=== PATIENT | male | born 1985 | race Caucasian/White ===

== ENCOUNTER → 2018-11-13 14:40 | Outpatient (CLI) | payer OTHER, SELFPAY ==
[2018-11-13 15:12] LABS: Add Manual Diff / Slide Review NO; Basophils Absolute Auto 100 /uL (0-100); Basophils Percent Auto 1.1 % (0-2); Eosinophils Absolute Auto 200 /uL (0-450); Eosinophils Percent Auto 1.7 % (2-4); Hematocrit 41.7 % (41-53); Hemoglobin 14.5 g/dL (13.5-17.5); Lymphocytes Absolute Auto 2400 /uL (1100-4500); Lymphocytes Percent Auto 22.5 % (25-40); Mean Corpuscular HGB Conc 34.7 % (30-36); Mean Corpuscular Hemoglobin 31.1 PG (26-34); Mean Corpuscular Volume 89.8 fL (80-100); Monocytes Absolute Auto 1000 /uL (0-900); Monocytes Percent Auto 9.5 % (3-14); Neutrophils Absolute Auto 7000 /uL (1500-7000); Neutrophils Percent Auto 65.2 % (50-75); Platelet Count 324 X10^3/uL (150-400); Red Blood Cell Count 4.65 X10^6/uL (4.5-5.9); Red Cell Distribution Width 14.5 % (11.6-14.8); White Blood Cell Count 10.8 X10^3/uL (4.5-11.0)
[2018-11-13 15:40] LABS: Alanine Aminotransferase 55 IU/L (21-72); Albumin 4.1 g/dL (3.5-5.0); Albumin Globulin Ratio 1.5 (1.0-2.8); Alkaline Phosphatase 82 U/L (38-126); Aspartate Aminotransferase 27 IU/L (17-59); Bilirubin Total 0.4 mg/dL (0.2-1.3); Blood Urea Nitrogen 19 mg/dL (9-20); Calcium 9.6 mg/dL (8.4-10.2); Carbon Dioxide 29 mmol/L (22-32); Chloride 103 mmol/L (98-107); Estimated Glomerular Filt Rate > 60.0 mL/min (>60); Globulin 2.8 g/dL (1.7-4.1); Glucose 80 mg/dL (70-100); HEMOLYSIS < 15 (0-50); Lipase 64 U/L (23-300); Sodium 143 mmol/L (137-145); Total Protein 6.9 g/dL (6.3-8.2)
== END ==
PROVIDERS: Visit Provider Physician Assistant
DX: R10.9 Unspecified abdominal pain (principal)
CPT/HCPCS: 36415; 80053; 83690; 85025

== ENCOUNTER → 2018-11-20 08:36 | Outpatient (CLI) | payer OTHER, SELFPAY ==
--- NOTE | 2018-11-20 08:54 | DI.CT.S_ITS ---
PROCEDURE: CT KIDNEY URETER BLADDER (KUB) INDICATIONS: possible kidney stone TECHNIQUE: Noncontrast 5 mm thick sections acquired from the diaphragms to the symphysis. 5 mm thick coronal and sagittal reformats were then performed. For radiation dose reduction, the following was used: automated exposure control, adjustment of mA and/or kV according to patient size. COMPARISON: None. FINDINGS: Image quality: Excellent. Lung bases: Lung bases are clear. Heart size is normal. Urinary system: Both kidneys are normal in size. No kidney stones. No hydronephrosis or perinephric fat stranding. Both ureters appear non-dilated throughout their expected courses. Bladder wall thickness is normal; no calcified bladder stones. Other solid organs: Liver is normal in size, but demonstrates generalized fatty infiltration.. Gallbladder appears normal. Pancreas is normal in contours. Spleen is normal in size. No adrenal nodules. Peritoneum and bowel: Unenhanced bowel loops demonstrate normal wall thickness and caliber. No free fluid or air. Nodes and vessels: No retroperitoneal or mesenteric adenopathy by size criteria. Aorta and inferior vena cava are normal in caliber. Abdominal wall: No ventral hernias. Pelvis: No free pelvic fluid. No inguinal hernias or adenopathy. Note is made of relative wall thickening of the sigmoid colon in a pattern suspicious for representing colitis or acute diverticulitis and conceivably a manifestation of colon malignancy. This tubular appearance can be seen beginning on series 2 image 85 and extending posteriorly to approximately series 2 image 84 (the posterior two thirds of the sigmoid colon). Sigmoid diverticulosis in this area is present, mild and overall some aerated. Bones: No suspicious bony lesions. No vertebral body compression fractures. IMPRESSION: No urinary tract stone or obstruction is seen. Note is made of abnormal mild mural thickening that is concentric involving the sigmoid colon, somewhat poorly visualized due to absence of both oral and intravenous contrast. The appearance as discussed above may reflect colitis through that area, versus diverticulitis, versus an unusual manifestation of neoplasm. Dictated by: Wes Domínguez M.D. on 11/20/2018 at 9:51 Approved by: Wes Domínguez M.D. on 11/20/2018 at 9:54
== END ==
PROVIDERS: Visit Provider Physician Assistant
DX: R10.9 Unspecified abdominal pain (principal); K57.30 Diverticulosis of large intestine without perforation or abscess without bleeding
CPT/HCPCS: 74176

== ENCOUNTER 2018-12-04 07:20 | Day surgery (SDC) | payer OTHER, MEDICAID, SELFPAY ==
--- NOTE | 2018-12-04 | PATH_ITS ---
[facility] Accession Number: [id number] . 01 Material submitted: . sigmoid colon - RANDOM SIGMOID BIOPSIES . 01 Clinical history: . FLEX SIG; ABNORMAL FINDINGS ON DIAGNOSTIC IMAGING . 02 Diagnosis: Random Sigmoid Colon, Biopsies: Colonic mucosa with no diagnostic abnormality. Negative for active, chronic, and microscopic colitis. Negative for dysplasia and malignancy. [facility] 12/05/2018 1334 Local . 02 Electronically signed: . Yoko Davalos MD, Pathologist NPI- [id number] . 01 Gross description: . RANDOM SIGMOID BIOPSIES: Received in formalin are multiple fragment(s) of deshpande, soft tissue measuring 0.1 x 0.1 x 0.1 cm to 0.3 x 0.2 x 0.2 cm which is entirely submitted and submitted entirely in 1 cassette(s) /[facility] [place]04/20181955 Local . 02 Pathologist provided ICD-10: R93.5 . 02 CPT . 529687 Performed at: 01 [facility] [address] [facility], [place], [place] [id number] MD Rolf York MD Phone: [phone] Performed at: 02 [facility] [address] [place], [place] [id number] MD Yoko Davalos MD Phone: [phone]
[2018-12-04 07:49] VITALS: BP 151/97; PULSE 113; RESP 16; TEMP 36.9; O2SAT 94; BMI 30.9
--- NOTE | 2018-12-04 07:58 | PM.HP.1 ---
History of Present Illness History of Present Illness Date Patient Seen: 12/04/18 Time Patient Seen: 07:58 Chief complaint: [id number] FLEX SIG Narrative: Patient is a gentleman who had a CT scan that showed possible sigmoid thickening and colitis. The patient has no diarrhea or blood. He is brought in for flex sig to evaluate this portion of his colon. Patient History Family History (Updated 12/04/18 @ 07:59 by Cody Lee MD) Mother Cancer Social History household members: significant other Smoking Status: Current every day smoker (1/2 ppd) Family & Social History Family History (Updated 12/04/18 @ 07:59 by Cody Lee MD) Mother Cancer Social History: household members significant other Tobacco & Substance use: Smoking Status Current every day smoker Meds Home Medications and Allergies Home Medications Medication Instructions Recorded Confirmed Type ibuprofen 200 mg tablet 400 mg PO TID PRN tab 11/29/18 12/04/18 History meloxicam 15 mg tablet 15 mg PO DAILY PRN 11/29/18 12/04/18 History Allergies Allergy/AdvReac Type Severity Reaction Status Date / Time acetaminophen [ACETAMINOPHEN] Allergy Unknown NAUSEA Verified 12/04/18 07:49 morphine [MORPHINE] Allergy Unknown Verified 12/04/18 07:49 Review of Systems Review of Systems ROS Unobtainable: All systems reviewed & are unremarkable except as noted in HPI and below Musculoskeletal Comments: Ankle and left hand arthritis Exam Vital Signs (past 8 hours): - 12/04/18 07:49 Temperature 98.4 F Pulse Rate 113 H Respiratory Rate 16 Blood Pressure 151/97 H Pulse Oximetry 94 Oxygen Delivery Method Room Air Narrative Exam Narrative: Pleasant cooperative patient no apparent distress. Lungs are clear to auscultation. No rales or rhonchi. Heart regular rate and rhythm no murmur gallop. Abdomen is soft nontender without mass. No obvious hernias. Patient is alert and oriented x3. Assessment & Plan Assessment and plan (1) Abnormal abdominal CT scan: Problem details: Patient for a flexible sigmoidoscopy. This is to evaluate his distal colon. Patient agreeable to proceed. Current visit: No Status: Acute
[2018-12-04] MEDS: SODIUM CHLORIDE 0.9% 1,000 ML 84 ML IV (08:00)
--- NOTE | 2018-12-04 08:27 | PM.PREOP ---
Pre-operative Note Interval Note History & Physical reviewed/Exam performed by Physician: Yes Changes to H&P: No ASA Class (for procedural sedation): I
--- NOTE | 2018-12-04 08:27 | PM.OP.ENDO ---
Operative Date/Time/Diagnoses Date of procedure: 12/04/18 Time of procedure: 08:28 Pre-op diagnosis: Abnormal CT possible colitis/diverticulitis sigmoid colon Post-op diagnosis: same (Very mild colitis. Could be associated with diverticulitis.) Procedure & Clinicians Study performed: Colonoscopy could be with cold biopsy Same procedure as scheduled: Yes Indications: Abnormal CT scan. Patient does not have symptoms of colitis however. CT was performed because of blood in his urine. Surgeon: Cody Lee Procedure Notes SCOAP/Timeout: Performed Procedure in detail: Patient was placed in left lateral decubitus position given IV sedation directed by the surgeon consisting of fentanyl and Versed. Digital exam was unremarkable. His sphincter tone is normal in his prostate is flat. The scope was inserted and advanced through the rectum into the sigmoid colon. There areas of patchy inflammation above 20 cm that was quite mild. Diverticulosis was noted however. The colon was normal above 40 cm. I reached form stool at 50 cm and stop the procedure at that point. The scope was gradually brought out. Biopsies were taken between 30 and 40 cm which was the area where there was the most inflammation. I do however emphasized that this was very mild patchy inflammation. The colon distended normally even through these areas. The scope was removed and the patient tolerated the procedure well. The rectum was normal. Scope withdrawal time: Not applicable Sedation minutes: 9 Findings: diverticulitis (Possible) and diverticulosis Post-procedure Recommendations: High fiber diet (Eat a diet rich in fruits and vegetables.), Start medication(s) (Take Metamucil daily) and Other recommendation (Screening colonoscopy in the normal time frames.) Follow up: as needed Disposition: PACU
[2018-12-04] MEDS: MIDAZOLAM 5 MG/5 ML VIAL IV (08:28)
[2018-12-04 08:29] VITALS: BP 144/89; PULSE 100; RESP 16; TEMP 37.6; O2SAT 96
[2018-12-04] MEDS: fentaNYL 250 MCG/5 ML INJ IV (08:29)
[2018-12-04 08:34] VITALS: BP 147/94; PULSE 98; RESP 16; O2SAT 99
[2018-12-04 08:43] VITALS: BP 145/99; PULSE 99; RESP 16; O2SAT 95
== END 2018-12-04 08:53 | disposition home or self-care (01) ==
PROVIDERS: PCP Nurse Practitioner Family; Visit Provider Specialist
PROC: 0DJD8ZZ Inspection of Lower Intestinal Tract, Via Natural or Artificial Opening Endoscopic (ICD-10-PCS; CPT 45378; principal; 2018-12-04 07:45)
DX: K52.9 Noninfective gastroenteritis and colitis, unspecified (principal); K57.30 Diverticulosis of large intestine without perforation or abscess without bleeding; F17.210 Nicotine dependence, cigarettes, uncomplicated
CPT/HCPCS: 45331; 99152; J2250; J3010

== ENCOUNTER 2019-01-23 13:49 | Emergency (ER) | payer OTHER, MEDICAID, SELFPAY ==
[2019-01-23 13:58] VITALS: BP 156/139; PULSE 120; RESP 20; TEMP 36.5; O2SAT 96; BMI 31.4
--- NOTE | 2019-01-23 14:11 | ED_ITS ---
HPI - Nausea/Vomiting/Diarrhea <SHARI Aponte - Last Filed: 01/23/19 20:15> General Chief complaint: Nausea/Vomiting/Diarrhea Stated complaint: throwing up,diarrhea,abdominal cramping/pain Time Seen by Provider: 01/23/19 13:50 Source: patient Mode of arrival: Ambulatory Limitations: no limitations History of Present Illness HPI Narrative: The patient is a 34-year-old male current smoker with history of alcohol abuse who presents with a chief complaint of nausea vomiting diarrhea abdominal pain. He states it has been going on for 5 days now. He has vomited 3 or 4 times today. He is unable to keep down fluids since yesterday. He states that he has had 6 episodes of diarrhea today. He complains of diffuse abdominal cramping. He complains of some sore throat after vomiting. Denies any ear pain. Complains of muscle aches and chills. He states that he saw somebody with a ?severe virus, and is worried about the flu. Related Data Previous Rx's Medication Instructions Recorded meloxicam 15 mg tablet 15 mg PO DAILY PRN #90 tab 12/07/18 triamcinolone acetonide 0.1 % 1 applictn TOP BID #30 gram 12/07/18 topical cream ciprofloxacin HCl 500 mg PO BID #20 tab 01/23/19 metronidazole 500 mg PO TID #30 tab 01/23/19 ondansetron 4 mg PO Q6H PRN #20 tab 01/23/19 Allergies Allergy/AdvReac Type Severity Reaction Status Date / Time acetaminophen [ACETAMINOPHEN] Allergy Unknown NAUSEA Verified 12/21/18 09:24 morphine [MORPHINE] Allergy Unknown Verified 01/23/19 15:26 Review of Systems <SHARI Aponte - Last Filed: 01/23/19 20:15> Review of Systems Narrative: GENERAL: Denies chills, fatigue, malaise, fever, sweats. HEENT: Denies sinus pain, ear pain, sore throat, difficulty swallowing, dizziness. RESPIRATORY: Denies dyspnea, cough, wheezing, hemoptysis, sputum. CARDIOVASCULAR: Denies chest pain, palpitations, orthopnea, edema, GASTROINTESTINAL: See HPI : Denies dysuria, frequency, incontinence, hematuria, urinary retention. MUSCULOSKELETAL: denies weakness, joint pain, or bony pain SKIN: Denies rash, skin lesions, or other NEUROLOGIC: Denies weakness, headache, numbness, change in speech, confusion, seizures, incoordination. PSYCHIATRIC: No concerning psychosocial issues. 12 point review of systems is negative except for those stated above Patient History <ANDREW Aponte - Last Filed: 01/23/19 20:15> Medical History Chronic pain of right ankle (Acute 2005) Diverticulosis large intestine w/o perforation or abscess w/o bleeding (Acute 11/2018) Eczema (Acute 2005) Family History Mother Cancer Social History household members: significant other Smoking Status: Current every day smoker quit status: considering quitting (Patient given smoking cessation handouts) second hand exposure: Yes alcohol intake: never substance use type: does not use alcohol intake frequency: other Substance Use Type: marijuana Exam <ANDREW Aponte - Last Filed: 01/23/19 20:15> Narrative Exam Narrative: GENERAL: This is a well-nourished, well-developed patient, appears uncomfortable HEAD: Atraumatic. Normocephalic. No temporal or scalp tenderness. EYES: Pupils equal round and reactive. Extraocular motions intact. No scleral icterus. No injection or drainage. ENT: Nose without bleeding, purulent drainage or septal hematoma. Throat without erythema, tonsillar hypertrophy or exudate. Uvula midline. Airway patent. NECK: Trachea midline. No JVD or lymphadenopathy. Supple, nontender, no meningeal signs. CARDIOVASCULAR: Regular rate and rhythm without murmurs, gallops, or rubs. RESPIRATORY: Clear to auscultation. Breath sounds equal bilaterally. No wheezes, rales, or rhonchi. No cough. No increased respiratory effort. No accessory muscle use. GASTROINTESTINAL: Abdomen soft, diffusely tender nondistended. No hepato- splenomegaly, or palpable masses. Active bowel sounds all 4 quadrants. Negative Ulrich sign. EXTREMITIES: No clubbing, cyanosis, or edema. No joint tenderness, effusion, or edema noted. BACK: Nontender without deformity or crepitance. No flank tenderness. NEURO: AOx3. SKIN: No rash or erythema visible skin Initial Vital Signs Initial Vital Signs: Vital Signs Temperature 97.7 F 01/23/19 13:58 Pulse Rate 120 H 01/23/19 13:58 Respiratory Rate 20 01/23/19 13:58 Blood Pressure 156/139 H 01/23/19 13:58 Pulse Oximetry 96 01/23/19 13:58 <Kiara Metzger DO - Last Filed: 01/28/19 07:16> Initial Vital Signs Initial Vital Signs: Vital Signs Temperature 97.7 F 01/23/19 13:58 Pulse Rate 120 H 01/23/19 13:58 Respiratory Rate 20 01/23/19 13:58 Blood Pressure 156/139 H 01/23/19 13:58 Pulse Oximetry 96 01/23/19 13:58 Course <SHE Aponte-BC - Last Filed: 01/23/19 20:15> Orders Ordered: Discontinued Medications Ciprofloxacin (Cipro) 500 mg PO NOW ONE Stop: 01/23/19 17:26 Last Admin: 01/23/19 18:03 Dose: 500 mg Documented by: MEISENB Sodium Chloride (Normal Saline 0.9%) 1,000 mls @ 1,000 mls/hr IV BOLUS ONE Stop: 01/23/19 15:01 Last Infusion: 01/23/19 15:44 Dose: 0 mls/hr Documented by: Admin: 01/23/19 14:17 Dose: 1,000 mls/hr Documented by: SCANAPO Sodium Chloride (Normal Saline 0.9%) 1,000 mls @ 1,000 mls/hr IV BOLUS ONE Stop: 01/23/19 15:02 Last Infusion: 01/23/19 15:44 Dose: 0 mls/hr Documented by: Admin: 01/23/19 14:17 Dose: 1,000 mls/hr Documented by: SCANAPO Metronidazole (Metronidazole) 500 mg PO NOW ONE Stop: 01/23/19 17:26 Last Admin: 01/23/19 18:03 Dose: 500 mg Documented by: MEISENB Ondansetron HCl (Zofran) 4 mg IV NOW ONE Stop: 01/23/19 14:03 Last Admin: 01/23/19 14:16 Dose: 4 mg Documented by: JANEL Ondansetron HCl (Zofran) 4 mg IV NOW ONE Stop: 01/23/19 14:04 Last Admin: 01/23/19 14:17 Dose: 4 mg Documented by: JANEL Vital Signs Vital signs: Vital Signs - 8 hr 01/23/19 13:58 01/23/19 14:40 01/23/19 15:57 Temperature 97.7 F Pulse Rate 120 H 77 88 Respiratory Rate 20 22 18 Blood Pressure 156/139 H Blood Pressure [Right Arm] 140/82 123/93 H Pulse Oximetry 96 93 98 01/23/19 17:45 01/23/19 19:18 Temperature Pulse Rate 90 90 Respiratory Rate 18 16 Blood Pressure Blood Pressure [Right Arm] 142/73 H 139/86 Pulse Oximetry 98 97 <Kiara Metzger DO - Last Filed: 01/28/19 07:16> Orders Ordered: Discontinued Medications Ciprofloxacin (Cipro) 500 mg PO NOW ONE Stop: 01/23/19 17:26 Last Admin: 01/23/19 18:03 Dose: 500 mg Documented by: ROBBIESENCharmaine Sodium Chloride (Normal Saline 0.9%) 1,000 mls @ 1,000 mls/hr IV BOLUS ONE Stop: 01/23/19 15:01 Last Infusion: 01/23/19 15:44 Dose: 0 mls/hr Documented by: Admin: 01/23/19 14:17 Dose: 1,000 mls/hr Documented by: JANEL Sodium Chloride (Normal Saline 0.9%) 1,000 mls @ 1,000 mls/hr IV BOLUS ONE Stop: 01/23/19 15:02 Last Infusion: 01/23/19 15:44 Dose: 0 mls/hr Documented by: Admin: 01/23/19 14:17 Dose: 1,000 mls/hr Documented by: JANEL Metronidazole (Metronidazole) 500 mg PO NOW ONE Stop: 01/23/19 17:26 Last Admin: 01/23/19 18:03 Dose: 500 mg Documented by: DIOGO Ondansetron HCl (Zofran) 4 mg IV NOW ONE Stop: 01/23/19 14:03 Last Admin: 01/23/19 14:16 Dose: 4 mg Documented by: SCANAPO Ondansetron HCl (Zofran) 4 mg IV NOW ONE Stop: 01/23/19 14:04 Last Admin: 01/23/19 14:17 Dose: 4 mg Documented by: JANEL Vital Signs Vital signs: Vital Signs - 8 hr 01/23/19 13:58 01/23/19 14:40 01/23/19 15:57 Temperature 97.7 F Pulse Rate 120 H 77 88 Respiratory Rate 20 22 18 Blood Pressure 156/139 H Blood Pressure [Right Arm] 140/82 123/93 H Pulse Oximetry 96 93 98 01/23/19 17:45 01/23/19 19:18 Temperature Pulse Rate 90 90 Respiratory Rate 18 16 Blood Pressure Blood Pressure [Right Arm] 142/73 H 139/86 Pulse Oximetry 98 97 MDM - Nausea/Vomiting/Diarrhea <SHE Aponte- - Last Filed: 01/23/19 20:15> Lab Data Result diagrams: 01/23/19 14:08 01/23/19 14:08 Labs: Lab Results 01/23/19 01/23/19 01/23/19 Range/Units 14:08 14:08 14:08 WBC 22.5 H (4.5-11.0) X10^3/uL RBC 5.73 (4.5-5.9) X10^6/uL Hgb 18.0 H (13.5-17.5) g/dL Hct 51.4 (41-53) % MCV 89.7 (80-100) fL MCH 31.4 (26-34) PG MCHC 35.0 (30-36) % RDW 14.4 (11.6-14.8) % Plt Count 257 (150-400) X10^3/uL Neut % (Auto) 85.9 H (50-75) % Lymph % (Auto) 5.6 L (25-40) % [place] % (Auto) 7.5 (3-14) % Eos % (Auto) 0.4 L (2-4) % Baso % (Auto) 0.6 (0-2) % Neut # (Auto) 34796 H (6878-8397) /uL Lymph # (Auto) 1300 (7949-9600) /uL [place] # (Auto) 1700 H (0-900) /uL Eos # (Auto) 100 (0-450) /uL Baso # (Auto) 100 (0-100) /uL Sodium 137 (137-145) mmol/L Potassium 4.4 (3.4-5.1) mmol/L Chloride 98 (98-107) mmol/L Carbon Dioxide 20 L (22-32) mmol/L BUN 19 (9-20) mg/dL Creatinine 1.50 H (0.66-1.25) mg/dL Estimated GFR 53.0 L (>60) mL/min BUN/Creatinine Ratio 12.7 (6-22) Glucose 157 H (70-100) mg/dL Calcium 10.2 (8.4-10.2) mg/dL Total Bilirubin 1.5 H (0.2-1.3) mg/dL AST 22 (17-59) IU/L ALT 33 (<50) IU/L Alkaline Phosphatase 109 (38-126) U/L Total Protein 9.1 H (6.3-8.2) g/dL Albumin 5.2 H (3.5-5.0) g/dL Globulin 3.9 (1.7-4.1) g/dL Albumin/Globulin Ratio 1.3 (1.0-2.8) Amylase 54 (30-110) U/L Lipase 20 L (23-300) U/L Procalcitonin 0.54 H (<0.5) ng/mL Urine RBC (0-5/HPF) Urine WBC (0-5/HPF) Ur Squamous Epith Cells (0-5/HPF) Amorphous Sediment Urine Bacteria (None) Hyaline Casts (None) Granular Casts (None) Ur Culture Indicated? Stl C. cayetanensis PCR (Not Detect) Stool Rotavirus (PCR) (Not Detect) Stool Adenovirus (PCR) (Not Detect) Stool Astrovirus (PCR) (Not Detect) Stool Cryptosporidium PCR (Not Detect) Stl E.coli Shiga Tox PCR (Not Detect) St Sh/Enteroin Ecoli PCR (Not Detect) Stool E coli O157 PCR Stl Enterotoxigenic E PCR (Not Detect) Stool EPEC (PCR) (Not Detect) Stl E. histolytica PCR (Not Detect) Stool Giardia Lamblia PCR (Not Detect) Stool Sapovirus (PCR) (Not Detect) Stl P. shigelloides PCR (Not Detect) St Y.enterocolitica PCR (Not Detect) Stool Vibrio (PCR) (Not Detect) Stl Vibrio cholerae PCR (Not Detect) Stl Enteroaggr Ecoli PCR (Not Detect) Stl Norovirus GI/GII PCR (Not Detect) Campylobacter (PCR) (Not Detect) C. difficile Tox (PCR) (Not Detect) Salmonella (PCR) (Not Detect) 01/23/19 01/23/19 Range/Units 15:30 15:30 WBC (4.5-11.0) X10^3/uL RBC (4.5-5.9) X10^6/uL Hgb (13.5-17.5) g/dL Hct (41-53) % MCV (80-100) fL MCH (26-34) PG MCHC (30-36) % RDW (11.6-14.8) % Plt Count (150-400) X10^3/uL Neut % (Auto) (50-75) % Lymph % (Auto) (25-40) % [place] % (Auto) (3-14) % Eos % (Auto) (2-4) % Baso % (Auto) (0-2) % Neut # (Auto) (0514-3171) /uL Lymph # (Auto) (1637-0152) /uL [place] # (Auto) (0-900) /uL Eos # (Auto) (0-450) /uL Baso # (Auto) (0-100) /uL Sodium (137-145) mmol/L Potassium (3.4-5.1) mmol/L Chloride (98-107) mmol/L Carbon Dioxide (22-32) mmol/L BUN (9-20) mg/dL Creatinine (0.66-1.25) mg/dL Estimated GFR (>60) mL/min BUN/Creatinine Ratio (6-22) Glucose (70-100) mg/dL Calcium (8.4-10.2) mg/dL Total Bilirubin (0.2-1.3) mg/dL AST (17-59) IU/L ALT (<50) IU/L Alkaline Phosphatase (38-126) U/L Total Protein (6.3-8.2) g/dL Albumin (3.5-5.0) g/dL Globulin (1.7-4.1) g/dL Albumin/Globulin Ratio (1.0-2.8) Amylase (30-110) U/L Lipase (23-300) U/L Procalcitonin (<0.5) ng/mL Urine RBC None seen (0-5/HPF) Urine WBC 0-1/hpf (0-5/HPF) Ur Squamous Epith Cells 5-10 /hpf H (0-5/HPF) Amorphous Sediment 2+ Urine Bacteria None seen (None) Hyaline Casts 5-10/lpf (None) Granular Casts 0-1/lpf (None) Ur Culture Indicated? Cult not indicated Stl C. cayetanensis PCR Not detected (Not Detect) Stool Rotavirus (PCR) Not detected (Not Detect) Stool Adenovirus (PCR) Not detected (Not Detect) Stool Astrovirus (PCR) Not detected (Not Detect) Stool Cryptosporidium PCR Not detected (Not Detect) Stl E.coli Shiga Tox PCR Not detected (Not Detect) St Sh/Enteroin Ecoli PCR Not detected (Not Detect) Stool E coli O157 PCR Not Reportable Stl Enterotoxigenic E PCR Not detected (Not Detect) Stool EPEC (PCR) Not detected (Not Detect) Stl E. histolytica PCR Not detected (Not Detect) Stool Giardia Lamblia PCR Not detected (Not Detect) Stool Sapovirus (PCR) Not detected (Not Detect) Stl P. shigelloides PCR Not detected (Not Detect) St Y.enterocolitica PCR Not detected (Not Detect) Stool Vibrio (PCR) Not detected (Not Detect) Stl Vibrio cholerae PCR Not detected (Not Detect) Stl Enteroaggr Ecoli PCR Not detected (Not Detect) Stl Norovirus GI/GII PCR Not detected (Not Detect) Campylobacter (PCR) Not detected (Not Detect) C. difficile Tox (PCR) Not detected (Not Detect) Salmonella (PCR) Not detected (Not Detect) Point of Care Testing Stool Occult Blood Positive Urine Dip Bedside Urine Glucose Negative Bedside Urine Bilirubin - Negative Bedside Urine Ketone +/- 5 Urine Specific [place] 1.010 Bedside Urine Occult Blood + Bedside Urine pH 6.0 Bedside Urine Protein ++ 100 Bedside Urine Urobilinogen +/- 1mg Bedside Urine Nitrite - Negative Bedside Urine Leukocytes - Negative Esterase Imaging Data CT scan - abdomen: Radiologist's impression: [address] [address] [address] Scan Report Signed Patient: Victor M Del Rio [facility]#: [id number] : 1985Acct:[id number] Age/Sex: 34 / MDate of Service: 01/23/19 Loc: ED Accession Number: [id number] Procedure: CT abdomen pelvis w con Ordering Provider: Kiara Fierro PROCEDURE: CT ABDOMEN PELVIS W CON INDICATIONS: abd pain,elevated wbc TECHNIQUE: After the administration of intravenous contrast, 5 mm thick sections acquired from the diaphragm to the symphysis. 5 mm coronal and sagittal reformats were acquired. For radiation dose reduction, the following was used: automated exposure control, adjustment of mA and/or kV according to patient size. COMPARISON: [facility], CT, CT KID[facility]ADDER (KUB), 11/20/2018, 8:39. FINDINGS: Image quality: Excellent. ABDOMEN: Lung bases: Lung bases are clear. Heart size is normal. Solid organs: Liver is normal in size and enhancement. Diffuse fatty infiltration of the liver. Gallbladder is within normal limits. Biliary system is non dilated. Pancreas enhances normally. Spleen is normal in size and enhancement. No adrenal nodules. Kidneys demonstrate normal size and enhancement, without hydronephrosis. Peritoneum and bowel: Circumferential wall thickening involving the terminal ileum and sigmoid colon. There are inflammatory changes in the mesentery adjacent to the terminal ileum and sigmoid colon. Few scattered diverticuli noted in the sigmoid colon. Mildly dilated loops of small bowel noted proximal to the terminal ileum measuring up to 3.3 cm. Trace free fluid noted adjacent to the terminal ileum and the sigmoid colon. No free air identified. Nodes and vessels: No retroperitoneal or mesenteric adenopathy by size criteria. Aorta and inferior vena cava are normal in size. Miscellaneous: No ventral hernias. PELVIS: Genitourinary: Bladder wall thickness is normal. Miscellaneous: No inguinal hernias or adenopathy. Bones: No suspicious bone lesions. No vertebral body compression fractures. IMPRESSION: 1. Circumferential wall thickening with adjacent inflammation involving the terminal ileum compatible with nonspecific terminal ileitis. Differential diagnosis includes inflammatory bowel disease, infection and less likely neoplastic or ischemic etiologies. 2. Circumferential wall thickening and inflammation adjacent to sigmoid colon compatible with nonspecific sigmoid colitis. Differential diagnosis includes inflammatory bowel disease, infection and less likely neoplastic or ischemic etiologies. 3. No definite evidence of appendicitis. 4. Mildly dilated loops of small bowel proximal to terminal ileum concerning for partial or early small bowel obstruction. 5. No free air. 6. Hepatic steatosis. Dictated by: Sindy Delgadillo MD, PhD on 01/23/2019 at 15:00 Approved by: Sindy Delgadillo MD, PhD on 01/23/2019 at 15:09 [facility] Narrative Medical decision making narrative: The patient is a 34-year-old male who presents with a chief complaint of throwing up diarrhea and abdominal cramping and pain. IV was started, patient was given IV fluids as well as Zofran and felt much improved. Given his leukocytosis of white blood cell count 22, discussed obtaining a CT scan. The patient initially declined, but later accepted CT scan. He was found have a possible small bowel obstruction, he s poke with Dr. Wren, who states that is not likely as the patient is having multiple diarrheal episodes. The patient did have an elevated procalcitonin at 0.54. Given his CT results of colitis, ileitis, possible small-bowel obstruction with his elevated procalcitonin and white blood cell count, I did offer to discuss the possibility of hospitalization the patient. The patient adamantly declined hospitalization. However he was able to keep down fluids, Cipro and Flagyl. I reiterated the importance of follow-up with his PCP for re- evaluation next day or 2, discussed very strict return precautions to the emergency department cleaning able to keep down fluids. Discussed at length dietary changes. Patient has no questions or concerns upon discharge and states understanding of return precautions and follow-up care. Patient was discharged on Cipro and Flagyl gave him a prescription of Zofran and instructed him to avoid NSAIDs alcohol etc and start on a clear liquid diet. Patient has no questions or concerns upon discharge and states understanding of strict return precautions and very strict follow-up care. <Kiara Metzger, DO - Last Filed: 01/28/19 07:16> Lab Data Labs: Lab Results 01/23/19 01/23/19 01/23/19 Range/Units 14:08 14:08 14:08 WBC 22.5 H (4.5-11.0) X10^3/uL RBC 5.73 (4.5-5.9) X10^6/uL Hgb 18.0 H (13.5-17.5) g/dL Hct 51.4 (41-53) % MCV 89.7 (80-100) fL MCH 31.4 (26-34) PG MCHC 35.0 (30-36) % RDW 14.4 (11.6-14.8) % Plt Count 257 (150-400) X10^3/uL Neut % (Auto) 85.9 H (50-75) % Lymph % (Auto) 5.6 L (25-40) % [place] % (Auto) 7.5 (3-14) % Eos % (Auto) 0.4 L (2-4) % Baso % (Auto) 0.6 (0-2) % Neut # (Auto) 38959 H (8453-9726) /uL Lymph # (Auto) 1300 (4433-8073) /uL [place] # (Auto) 1700 H (0-900) /uL Eos # (Auto) 100 (0-450) /uL Baso # (Auto) 100 (0-100) /uL Sodium 137 (137-145) mmol/L Potassium 4.4 (3.4-5.1) mmol/L Chloride 98 (98-107) mmol/L Carbon Dioxide 20 L (22-32) mmol/L BUN 19 (9-20) mg/dL Creatinine 1.50 H (0.66-1.25) mg/dL Estimated GFR 53.0 L (>60) mL/min BUN/Creatinine Ratio 12.7 (6-22) Glucose 157 H (70-100) mg/dL Calcium 10.2 (8.4-10.2) mg/dL Total Bilirubin 1.5 H (0.2-1.3) mg/dL AST 22 (17-59) IU/L ALT 33 (<50) IU/L Alkaline Phosphatase 109 (38-126) U/L Total Protein 9.1 H (6.3-8.2) g/dL Albumin 5.2 H (3.5-5.0) g/dL Globulin 3.9 (1.7-4.1) g/dL Albumin/Globulin Ratio 1.3 (1.0-2.8) Amylase 54 (30-110) U/L Lipase 20 L (23-300) U/L Procalcitonin 0.54 H (<0.5) ng/mL Urine RBC (0-5/HPF) Urine WBC (0-5/HPF) Ur Squamous Epith Cells (0-5/HPF) Amorphous Sediment Urine Bacteria (None) Hyaline Casts (None) Granular Casts (None) Ur Culture Indicated? Stl C. cayetanensis PCR (Not Detect) Stool Rotavirus (PCR) (Not Detect) Stool Adenovirus (PCR) (Not Detect) Stool Astrovirus (PCR) (Not Detect) Stool Cryptosporidium PCR (Not Detect) Stl E.coli Shiga Tox PCR (Not Detect) St Sh/Enteroin Ecoli PCR (Not Detect) Stool E coli O157 PCR Stl Enterotoxigenic E PCR (Not Detect) Stool EPEC (PCR) (Not Detect) Stl E. histolytica PCR (Not Detect) Stool Giardia Lamblia PCR (Not Detect) Stool Sapovirus (PCR) (Not Detect) Stl P. shigelloides PCR (Not Detect) St Y.enterocolitica PCR (Not Detect) Stool Vibrio (PCR) (Not Detect) Stl Vibrio cholerae PCR (Not Detect) Stl Enteroaggr Ecoli PCR (Not Detect) Stl Norovirus GI/GII PCR (Not Detect) Campylobacter (PCR) (Not Detect) C. difficile Tox (PCR) (Not Detect) Salmonella (PCR) (Not Detect) 01/23/19 01/23/19 Range/Units 15:30 15:30 WBC (4.5-11.0) X10^3/uL RBC (4.5-5.9) X10^6/uL Hgb (13.5-17.5) g/dL Hct (41-53) % MCV (80-100) fL MCH (26-34) PG MCHC (30-36) % RDW (11.6-14.8) % Plt Count (150-400) X10^3/uL Neut % (Auto) (50-75) % Lymph % (Auto) (25-40) % [place] % (Auto) (3-14) % Eos % (Auto) (2-4) % Baso % (Auto) (0-2) % Neut # (Auto) (9839-0917) /uL Lymph # (Auto) (4417-5850) /uL [place] # (Auto) (0-900) /uL Eos # (Auto) (0-450) /uL Baso # (Auto) (0-100) /uL Sodium (137-145) mmol/L Potassium (3.4-5.1) mmol/L Chloride (98-107) mmol/L Carbon Dioxide (22-32) mmol/L BUN (9-20) mg/dL Creatinine (0.66-1.25) mg/dL Estimated GFR (>60) mL/min BUN/Creatinine Ratio (6-22) Glucose (70-100) mg/dL Calcium (8.4-10.2) mg/dL Total Bilirubin (0.2-1.3) mg/dL AST (17-59) IU/L ALT (<50) IU/L Alkaline Phosphatase (38-126) U/L Total Protein (6.3-8.2) g/dL Albumin (3.5-5.0) g/dL Globulin (1.7-4.1) g/dL Albumin/Globulin Ratio (1.0-2.8) Amylase (30-110) U/L Lipase (23-300) U/L Procalcitonin (<0.5) ng/mL Urine RBC None seen (0-5/HPF) Urine WBC 0-1/hpf (0-5/HPF) Ur Squamous Epith Cells 5-10 /hpf H (0-5/HPF) Amorphous Sediment 2+ Urine Bacteria None seen (None) Hyaline Casts 5-10/lpf (None) Granular Casts 0-1/lpf (None) Ur Culture Indicated? Cult not indicated Stl C. cayetanensis PCR Not detected (Not Detect) Stool Rotavirus (PCR) Not detected (Not Detect) Stool Adenovirus (PCR) Not detected (Not Detect) Stool Astrovirus (PCR) Not detected (Not Detect) Stool Cryptosporidium PCR Not detected (Not Detect) Stl E.coli Shiga Tox PCR Not detected (Not Detect) St Sh/Enteroin Ecoli PCR Not detected (Not Detect) Stool E coli O157 PCR Not Reportable Stl Enterotoxigenic E PCR Not detected (Not Detect) Stool EPEC (PCR) Not detected (Not Detect) Stl E. histolytica PCR Not detected (Not Detect) Stool Giardia Lamblia PCR Not detected (Not Detect) Stool Sapovirus (PCR) Not detected (Not Detect) Stl P. shigelloides PCR Not detected (Not Detect) St Y.enterocolitica PCR Not detected (Not Detect) Stool Vibrio (PCR) Not detected (Not Detect) Stl Vibrio cholerae PCR Not detected (Not Detect) Stl Enteroaggr Ecoli PCR Not detected (Not Detect) Stl Norovirus GI/GII PCR Not detected (Not Detect) Campylobacter (PCR) Not detected (Not Detect) C. difficile Tox (PCR) Not detected (Not Detect) Salmonella (PCR) Not detected (Not Detect) Point of Care Testing Stool Occult Blood Positive Urine Dip Bedside Urine Glucose Negative Bedside Urine Bilirubin - Negative Bedside Urine Ketone +/- 5 Urine Specific [place] 1.010 Bedside Urine Occult Blood + Bedside Urine pH 6.0 Bedside Urine Protein ++ 100 Bedside Urine Urobilinogen +/- 1mg Bedside Urine Nitrite - Negative Bedside Urine Leukocytes - Negative Esterase Discharge Plan Departure Patient Disposition: Home Clinical Impression: Colitis, Ileitis Abdominal pain Qualifiers: Abdominal location: generalized Qualified Code(s): R10.84 - Generalized abdominal pain Discharge Date/Time: 01/23/19 19:20 Instructions: DI for Dehydration -- Adult, DI for Abdominal Pain-Adult, DI for Colitis Activity Restrictions/Additional Instructions: As discussed, your CT shows inflammation/infection. I have sent 3 prescriptions to [facility] Please follow up with primary care provider in the next few days. Please come back to emergency department for any acute concerns, such as inability keep down fluids. Please follow up with her primary care provider. Prescriptions: New ondansetron 4 mg tablet,disintegrating 4 mg PO Q6H PRN (Reason: nausea and vomiting) Qty: 20 RF: 0 ciprofloxacin HCl 500 mg tablet 500 mg PO BID Qty: 20 RF: 0 metronidazole 500 mg tablet 500 mg PO TID Qty: 30 RF: 0 No Action meloxicam 15 mg tablet 15 mg PO DAILY PRN (Reason: Pain (Scale Score 1-3)) Qty: 90 RF: 0 triamcinolone acetonide 0.1 % cream 1 applictn TOP BID Qty: 30 RF: 0 Referrals: Eden Dawson ARNP [Primary Care Provider] - Stand Alone Forms: Work Release Note
[2019-01-23] MEDS: ONDANSETRON 4 MG/2 ML INJ IV ×2 (14:16→14:17)
[2019-01-23] MEDS: SODIUM CHLORIDE 0.9% 1,000 ML 1000 ML IV ×2 (14:17)
[2019-01-23 14:19] LABS: Add Manual Diff / Slide Review NO; Basophils Absolute Auto 100 /uL (0-100); Basophils Percent Auto 0.6 % (0-2); Eosinophils Absolute Auto 100 /uL (0-450); Eosinophils Percent Auto 0.4 % (2-4); Hematocrit 51.4 % (41-53); Lymphocytes Absolute Auto 1300 /uL (1100-4500); Lymphocytes Percent Auto 5.6 % (25-40); Mean Corpuscular Hemoglobin 31.4 PG (26-34); Mean Corpuscular Volume 89.7 fL (80-100); Monocytes Absolute Auto 1700 /uL (0-900); Monocytes Percent Auto 7.5 % (3-14); Neutrophils Absolute Auto 19400 /uL (1500-7000); Neutrophils Percent Auto 85.9 % (50-75); Platelet Count 257 X10^3/uL (150-400); Red Blood Cell Count 5.73 X10^6/uL (4.5-5.9); Red Cell Distribution Width 14.4 % (11.6-14.8); White Blood Cell Count 22.5 X10^3/uL (4.5-11.0)
[2019-01-23 14:27] LABS: Alanine Aminotransferase 33 IU/L (<50); Albumin 5.2 g/dL (3.5-5.0); Albumin Globulin Ratio 1.3 (1.0-2.8); Alkaline Phosphatase 109 U/L (38-126); Amylase 54 U/L (30-110); Aspartate Aminotransferase 22 IU/L (17-59); BUN Creatinine Ratio 12.7 (6-22); Bilirubin Total 1.5 mg/dL (0.2-1.3); Blood Urea Nitrogen 19 mg/dL (9-20); Calcium 10.2 mg/dL (8.4-10.2); Carbon Dioxide 20 mmol/L (22-32); Chloride 98 mmol/L (98-107); Globulin 3.9 g/dL (1.7-4.1); Glucose 157 mg/dL (70-100); HEMOLYSIS < 15 (0-50); Lipase 20 U/L (23-300); Potassium 4.4 mmol/L (3.4-5.1); Sodium 137 mmol/L (137-145); Total Protein 9.1 g/dL (6.3-8.2)
--- NOTE | 2019-01-23 14:38 | DI.CT.S_ITS ---
PROCEDURE: CT ABDOMEN PELVIS W CON INDICATIONS: abd pain,elevated wbc TECHNIQUE: After the administration of intravenous contrast, 5 mm thick sections acquired from the diaphragm to the symphysis. 5 mm coronal and sagittal reformats were acquired. For radiation dose reduction, the following was used: automated exposure control, adjustment of mA and/or kV according to patient size. COMPARISON: [facility], CT, CT KIDNEY URETER BLADDER (KUB), 11/20/2018, 8:39. FINDINGS: Image quality: Excellent. ABDOMEN: Lung bases: Lung bases are clear. Heart size is normal. Solid organs: Liver is normal in size and enhancement. Diffuse fatty infiltration of the liver. Gallbladder is within normal limits. Biliary system is non dilated. Pancreas enhances normally. Spleen is normal in size and enhancement. No adrenal nodules. Kidneys demonstrate normal size and enhancement, without hydronephrosis. Peritoneum and bowel: Circumferential wall thickening involving the terminal ileum and sigmoid colon. There are inflammatory changes in the mesentery adjacent to the terminal ileum and sigmoid colon. Few scattered diverticuli noted in the sigmoid colon. Mildly dilated loops of small bowel noted proximal to the terminal ileum measuring up to 3.3 cm. Trace free fluid noted adjacent to the terminal ileum and the sigmoid colon. No free air identified. Nodes and vessels: No retroperitoneal or mesenteric adenopathy by size criteria. Aorta and inferior vena cava are normal in size. Miscellaneous: No ventral hernias. PELVIS: Genitourinary: Bladder wall thickness is normal. Miscellaneous: No inguinal hernias or adenopathy. Bones: No suspicious bone lesions. No vertebral body compression fractures. IMPRESSION: 1. Circumferential wall thickening with adjacent inflammation involving the terminal ileum compatible with nonspecific terminal ileitis. Differential diagnosis includes inflammatory bowel disease, infection and less likely neoplastic or ischemic etiologies. 2. Circumferential wall thickening and inflammation adjacent to sigmoid colon compatible with nonspecific sigmoid colitis. Differential diagnosis includes inflammatory bowel disease, infection and less likely neoplastic or ischemic etiologies. 3. No definite evidence of appendicitis. 4. Mildly dilated loops of small bowel proximal to terminal ileum concerning for partial or early small bowel obstruction. 5. No free air. 6. Hepatic steatosis. Dictated by: Sindy Delgadillo MD, PhD on 01/23/2019 at 15:00 Approved by: Sindy Delgadillo MD, PhD on 01/23/2019 at 15:09
--- NOTE | 2019-01-23 14:39 | PC.NURSE ---
reports, left sided abdominal pain 3 days , +nausea,+vomiting,+diarrhea.
[2019-01-23 14:40] VITALS: BP 140/82; PULSE 77; RESP 22; O2SAT 93
[2019-01-23 15:49] LABS: Bacteria Urine None Seen; RBC Urine None Seen (0-5/HPF)
[2019-01-23 15:57] VITALS: BP 123/93; PULSE 88; RESP 18; O2SAT 98
[2019-01-23 16:00] LABS: Amorphous Sediment Urine 2+; Culture Indicated Urine Cult Not Indicated; Granular Casts Urine 0-1/LPF; Hyaline Casts Urine 5-10/LPF; Squamous Epithelial Cell Urine 5-10 /HPF (0-5/HPF); WBC Urine 0-1/HPF (0-5/HPF)
[2019-01-23 17:03] LABS: Procalcitonin 0.54 ng/mL (<0.5)
[2019-01-23 17:34] LABS: Adenovirus F 40/41 Not Detected (Not Detect); Astrovirus Not Detected (Not Detect); Campylobacter Not Detected (Not Detect); Clostridium difficile toxin AB Not Detected (Not Detect); Cryptosporidium Not Detected (Not Detect); Cyclospora cayetanensis Not Detected (Not Detect); Entamoeba histolytica Not Detected (Not Detect); Enteroaggregative E.coli Not Detected (Not Detect); Enteropathogenic E.coli Not Detected (Not Detect); Enterotoxigenic E.coli It/st Not Detected (Not Detect); Giardia lamblia Not Detected (Not Detect); Norovirus GI/GII Not Detected (Not Detect); Plesiomonsa shigelloides Not Detected (Not Detect); Rotavirus A Not Detected (Not Detect); Salmonella Not Detected (Not Detect); Sapovirus Not Detected (Not Detect); Shiga-like toxin-prod E.coli Not Detected (Not Detect); Shigella/Enteroinvasive E.coli Not Detected (Not Detect); Vibrio Not Detected (Not Detect); Vibrio cholerae Not Detected (Not Detect); Yersinia enterocolitica Not Detected (Not Detect)
[2019-01-23 17:45] VITALS: BP 142/73; PULSE 90; RESP 18; O2SAT 98
[2019-01-23] MEDS: metroNIDAZOLE 250 MG TABLET 500 MG PO (18:03)
[2019-01-23] MEDS: CIPROFLOXACIN 500 MG TABLET PO (18:03)
[2019-01-23 19:18] VITALS: BP 139/86; PULSE 90; RESP 16; O2SAT 97
== END 2019-01-23 19:20 | disposition home or self-care (01) ==
PROVIDERS: Emergency Provider Nurse Practitioner Family; PCP Nurse Practitioner Family
DX: K52.9 Noninfective gastroenteritis and colitis, unspecified (principal); R10.84 Generalized abdominal pain; R11.2 Nausea with vomiting, unspecified
CPT/HCPCS: 36415; 74177; 80053; 81003; 81015; 82150; 82272; 83690; 84145; 85025; 87177; 87507; 96361; 96374; 99283; 99284; J2405; Q9967

== ENCOUNTER → 2019-02-01 10:07 | Outpatient (CLI) | payer OTHER, MEDICAID, SELFPAY ==
[2019-02-01 10:18] LABS: Bacteria Urine None Seen; RBC Urine None Seen (0-5/HPF); WBC Urine None Seen (0-5/HPF)
[2019-02-01 11:16] LABS: Add Manual Diff / Slide Review NO; Basophils Absolute Auto 100 /uL (0-100); Basophils Percent Auto 1.3 % (0-2); Eosinophils Absolute Auto 100 /uL (0-450); Eosinophils Percent Auto 1.3 % (2-4); Hematocrit 43.6 % (41-53); Hemoglobin 14.8 g/dL (13.5-17.5); Lymphocytes Absolute Auto 1900 /uL (1100-4500); Lymphocytes Percent Auto 19.1 % (25-40); Mean Corpuscular Hemoglobin 30.9 PG (26-34); Mean Corpuscular Volume 90.9 fL (80-100); Monocytes Absolute Auto 800 /uL (0-900); Monocytes Percent Auto 8.4 % (3-14); Neutrophils Absolute Auto 6900 /uL (1500-7000); Neutrophils Percent Auto 69.9 % (50-75); Platelet Count 369 X10^3/uL (150-400); Red Cell Distribution Width 14.4 % (11.6-14.8); White Blood Cell Count 9.9 X10^3/uL (4.5-11.0)
[2019-02-01 12:48] LABS: Appearance Urine UA CLEAR; Bilirubin Urine UA NEGATIVE (NEGATIVE); Color Urine UA YELLOW; Glucose Urine UA NEGATIVE (Negative); Ketones Urine UA NEGATIVE (NEGATIVE); Leukocyte Esterase Urine UA TRACE (NEGATIVE); Nitrite Urine UA POSITIVE (Negative); Occult Blood Urine UA NEGATIVE (Negative); Protein Urine UA NEGATIVE (Negative); Specific Gravity Urine UA >=1.030 (1.000-1.035); Urobilinogen Urine UA 0.2 E.U./dL (0.2)
[2019-02-01 12:53] LABS: Alanine Aminotransferase 33 IU/L (<50); Albumin Globulin Ratio 1.7 (1.0-2.8); Alkaline Phosphatase 62 U/L (38-126); Aspartate Aminotransferase 32 IU/L (17-59); Bilirubin Total 0.4 mg/dL (0.2-1.3); Blood Urea Nitrogen 13 mg/dL (9-20); Calcium 9.6 mg/dL (8.4-10.2); Carbon Dioxide 27 mmol/L (22-32); Chloride 107 mmol/L (98-107); Cholesterol 85 mg/dL (140-199); Estimated Glomerular Filt Rate > 60.0 mL/min (>60); Globulin 2.4 g/dL (1.7-4.1); Glucose 90 mg/dL (70-100); HDL Cholesterol 31 mg/dL (40-60); HEMOLYSIS < 15 (0-50); LDL Cholesterol Calculated 28 mg/dL (<100); Potassium 4.8 mmol/L (3.4-5.1); Sodium 143 mmol/L (137-145); Total Protein 6.4 g/dL (6.3-8.2); Triglycerides 128 mg/dL (35-150)
[2019-02-01 13:06] LABS: Culture Indicated Urine Cult Not Indicated
== END ==
PROVIDERS: PCP Nurse Practitioner Family; Visit Provider Nurse Practitioner Family
DX: Z13.6 Encounter for screening for cardiovascular disorders (principal); D72.829 Elevated white blood cell count, unspecified; R31.9 Hematuria, unspecified; R79.89 Other specified abnormal findings of blood chemistry
CPT/HCPCS: 36415; 80053; 80061; 81001; 85025

== ENCOUNTER 2019-11-10 00:09 | Emergency (ER) | payer OTHER, MEDICAID, SELFPAY ==
[2019-11-10] VITALS (12 sets, daily range): BP systolic 120–157; BP diastolic 64–89; PULSE 80–101; RESP 16–29; TEMP 36.8; O2SAT 92–99; BMI 30.3
--- NOTE | 2019-11-10 00:13 | DI.CT.S_ITS ---
PROCEDURE: CT HEAD/BRAIN WO CON INDICATIONS: Trauma TECHNIQUE: Noncontrast 4.5 mm thick angled axial sections acquired from the foramen magnum to the vertex, with coronal and sagittal reformats. For radiation dose reduction, the following was used: automated exposure control, adjustment of mA and/or kV according to patient size. COMPARISON: None. FINDINGS: Image quality: This is a markedly limited study given the streak artifact from motion. CSF spaces: Basal cisterns are patent. No extra-axial fluid collections. Ventricles are normal in size and shape. Brain: No midline shift. No intracranial masses . Probable streak artifact is present within the frontal lobe; however small left frontal subarachnoid hemorrhage cannot be entirely excluded. Brunner-white matter interface is normal. Skull and face: There is mild left frontoparietal soft tissue swelling. Calvarium and visualized facial bones are intact, without suspicious lesions. Sinuses: Visualized sinuses and mastoids are clear. IMPRESSION: 1. Motion artifact markedly limits evaluation. Questionable subarachnoid hemorrhage versus streak artifact. If there is high clinical suspicion for intracranial trauma, repeat imaging is recommended. However, if the patient has received contrast, evaluation will be limited. 2. Left frontoparietal soft tissue swelling without underlying calvarial abnormality. These findings are concordant with the overnight interpretation. Dictated by: Nivia Connelly M.D. on 11/10/2019 at 7:47 Approved by: Nivia Connelly M.D. on 11/10/2019 at 7:50
--- NOTE | 2019-11-10 00:13 | DI.CT.S_ITS ---
PROCEDURE: CT CHEST ABD PEL W CON INDICATIONS: Pain TECHNIQUE: After the administration of intravenous contrast, 5 mm thick sections acquired from the lung apices to the symphysis. 5 mm coronal and sagittal reformats were performed, with additional 7 mm MIP reformats through the lungs. For radiation dose reduction, the following was used: automated exposure control, adjustment of mA and/or kV according to patient size. COMPARISON: None. FINDINGS: Image quality: Breathing motion artifact limits evaluation. CHEST: Lungs and pleura: No acute airspace opacities. No pleural effusions or pneumothorax. Central and peripheral airways appear patent and normal in caliber. Mediastinum: Heart size is normal. No pericardial effusion. No mediastinal or hilar adenopathy by size criteria. Thoracic aorta and central pulmonary arteries are normal in size. Esophagus is normal in caliber. No hiatal hernia. Chest wall: No axillary or supraclavicular adenopathy by size criteria. Thyroid gland is unremarkable . ABDOMEN: Solid organs: Liver is normal in size and diffusely hypodense suggesting fatty infiltration. Gallbladder is unremarkable . Biliary system is non dilated. Pancreas enhances normally. Spleen is normal in size and enhancement. No adrenal nodules. Kidneys demonstrate normal size and enhancement, without hydronephrosis. Peritoneum and bowel: Bowel loops demonstrate normal wall thickness and caliber. The appendix is thin walled. Circumferential wall thickening and mild pericolonic fat stranding is present around the midportion of the sigmoid colon. There is scattered colonic diverticular outpouchings. Trace free fluid is present in No free fluid or air. Nodes and vessels: No retroperitoneal or mesenteric adenopathy by size criteria. Aorta and inferior vena cava are normal in size. Miscellaneous: No ventral hernias. PELVIS: Genitourinary: This region. Focal wall thickening of the bladder is noted at the dome adjacent to the inflammatory changes in the sigmoid colon. A small amount of gas is also present in this region within the bladder. The bladder is otherwise thin walled. Miscellaneous: No inguinal hernias or adenopathy. Bones: No suspicious bony lesions. No vertebral body compression fractures. IMPRESSION: 1. Findings suspicious for colitis or acute sigmoid diverticulitis with resultant colovesicular fistula given focal wall thickening and gas within the adjacent bladder. 2. Normal appendix. These findings are concordant with the overnight interpretation. Dictated by: Nivia Connelly M.D. on 11/10/2019 at 7:39 Approved by: Nivia Connelly M.D. on 11/10/2019 at 7:42
--- NOTE | 2019-11-10 00:13 | DI.CT.S_ITS ---
PROCEDURE: CT CERVICAL SPINE WO CON INDICATIONS: trauma TECHNIQUE: Noncontrast 3 mm thick sections acquired from the skull base to the T4 level. Sagittal and coronal reformats were then constructed. For radiation dose reduction, the following was used: automated exposure control, adjustment of mA and/or kV according to patient size. COMPARISON: None. FINDINGS: Image quality: Excellent. Bones: There is a displaced right C6 facet fracture. No extension into the transverse foramen. Soft tissues: Prevertebral soft tissues are normal in thickness. No paravertebral hematomas. No apical pneumothoraces. IMPRESSION: 1. Displaced right C6 facet fracture. No findings to suggest extension into the transverse foramen; however if there is clinical suspicion for vascular injury, CT of the neck could be used. These findings are concordant with the overnight interpretation. Dictated by: Nivia Connelly M.D. on 11/10/2019 at 7:43 Approved by: Nivia Connelly M.D. on 11/10/2019 at 7:47
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
[2019-11-10 01:07] LABS: Add Manual Diff / Slide Review NO; Basophils Absolute Auto 100 /uL (0-100); Basophils Percent Auto 0.8 % (0-2); Eosinophils Absolute Auto 100 /uL (0-450); Eosinophils Percent Auto 0.4 % (2-4); Hematocrit 52.1 % (41-53); Hemoglobin 17.5 g/dL (13.5-17.5); Lymphocytes Absolute Auto 2100 /uL (1100-4500); Lymphocytes Percent Auto 15.5 % (25-40); Mean Corpuscular HGB Conc 33.6 % (30-36); Mean Corpuscular Hemoglobin 31.1 PG (26-34); Mean Corpuscular Volume 92.5 fL (80-100); Monocytes Absolute Auto 800 /uL (0-900); Monocytes Percent Auto 5.5 % (3-14); Neutrophils Absolute Auto 10700 /uL (1500-7000); Neutrophils Percent Auto 77.8 % (50-75); Platelet Count 291 X10^3/uL (150-400); Red Blood Cell Count 5.63 X10^6/uL (4.5-5.9); Red Cell Distribution Width 16.4 % (11.6-14.8); White Blood Cell Count 13.8 X10^3/uL (4.5-11.0)
[2019-11-10 01:34] LABS: Alanine Aminotransferase 39 IU/L (<50); Albumin 4.3 g/dL (3.5-5.0); Albumin Globulin Ratio 1.3 (1.0-2.8); Alkaline Phosphatase 106 U/L (38-126); Aspartate Aminotransferase 45 IU/L (17-59); BUN Creatinine Ratio 9.1 (6-22); Bilirubin Total 0.6 mg/dL (0.2-1.3); Blood Urea Nitrogen 9 mg/dL (9-20); Calcium 8.8 mg/dL (8.4-10.2); Carbon Dioxide 25 mmol/L (22-32); Chloride 105 mmol/L (98-107); Estimated Glomerular Filt Rate > 60.0 mL/min (>60); Globulin 3.2 g/dL (1.7-4.1); Glucose 111 mg/dL (70-100); HEMOLYSIS 17 (0-50); Lipase 107 U/L (23-300); Potassium 3.6 mmol/L (3.4-5.1); Sodium 144 mmol/L (137-145); Total Protein 7.5 g/dL (6.3-8.2)
[2019-11-10] MEDS: CEFAZOLIN 2 GM/100 ML FROZ.PIGGY IV (01:48)
[2019-11-10] MEDS: SODIUM CHLORIDE 0.9% 1,000 ML 150 ML IV (02:15)
[2019-11-10 02:37] LABS: Ethanol (ETOH) 434 mg/dL
[2019-11-10 03:14] LABS: RBC Urine None Seen (0-5/HPF)
--- NOTE | 2019-11-10 03:17 | PC.NURSE ---
Patient states it is okay to share all his medical information with his mom and father Telly as well as his ex girlfriend Komal. Pt left a voicemail on his parents landline and his fathers cell. Pt spoke on phone to ex-girlfriend. Mom & Dad Landline: [phone] Dad Ex Girlfriend Komal: [phone]
[2019-11-10 03:22] LABS: UR Morphine/Opiate cutoff 300 Negative (Negative); Ur Creatinine Normal (Normal); Ur Specific Gravity Normal (Normal); Urine Amphetamines Negative (Negative); Urine Barbiturates Negative (Negative); Urine Benzodiazepines Negative (Negative); Urine Cocaine Negative (Negative); Urine MDMA Negative (Negative); Urine Methadone Negative (Negative); Urine Methamphetamines Negative (Negative); Urine Oxycodone Negative (Negative); Urine Phencyclidine Negative (Negative); Urine Tetrahydrocannabinol Positive (Negative); Urine Tricyclic Antidepressant Negative (Negative); Urine pH Normal (Normal)
[2019-11-10 03:23] LABS: Squamous Epithelial Cell Urine 0-1 /HPF (0-5/HPF); WBC Urine 5-10/HPF (0-5/HPF)
[2019-11-10 03:24] LABS: Bacteria Urine Moderate (10-30); Culture Indicated Urine Specimen Cultured
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
--- NOTE | 2019-11-10 03:40 | PC.NURSE ---
Patients ex-girlfriend here at bedside with patient
[2019-11-10] MEDS: ONDANSETRON 4 MG/2 ML INJ IV (05:52)
[2019-11-10] MEDS: LIDO 1%/SOD BICARB 8.4% (10ML) 10 ML SYRINGE INJ (05:53)
== END 2019-11-10 06:15 | disposition short-term general hospital (02) ==
PROVIDERS: Emergency Provider Emergency Medicine; PCP Nurse Practitioner Family
DX: S06.6X1A Traumatic subarachnoid hemorrhage with loss of consciousness of 30 minutes or less, initial encounter (principal); S01.01XA Laceration without foreign body of scalp, initial encounter; S12.500A Unspecified displaced fracture of sixth cervical vertebra, initial encounter for closed fracture; S31.119A Laceration without foreign body of abdominal wall, unspecified quadrant without penetration into peritoneal cavity, initial encounter; F10.129 Alcohol abuse with intoxication, unspecified; Y90.8 Blood alcohol level of 240 mg/100 ml or more; V49.9XXA Car occupant (driver) (passenger) injured in unspecified traffic accident, initial encounter
CPT/HCPCS: 36415; 70450; 71260; 72125; 74177; 80053; 80305; 80320; 81003; 81015; 83690; 85025; 86850; 86900; 86901; 87077; 87086; 87186; 93005; 93010; 96365; 96375; 99285; 99291; 99292; G0390; J0690; J2405; Q9967

== ENCOUNTER 2019-12-31 12:41 | Observation (INO) | payer OTHER, MEDICAID, SELFPAY ==
[2019-12-31] VITALS (12 sets, daily range): BP systolic 105–134; BP diastolic 55–89; PULSE 78–101; RESP 13–16; TEMP 36.6–37.6; O2SAT 94–97; BMI 28.8
[2019-12-31 14:30] LABS: Add Manual Diff / Slide Review NO; Basophils Absolute Auto 100 /uL (0-100); Basophils Percent Auto 0.4 % (0-2); Eosinophils Absolute Auto 100 /uL (0-450); Eosinophils Percent Auto 0.6 % (2-4); Hematocrit 44.2 % (41-53); Hemoglobin 15.1 g/dL (13.5-17.5); Lymphocytes Absolute Auto 1600 /uL (1100-4500); Lymphocytes Percent Auto 13.1 % (25-40); Mean Corpuscular HGB Conc 34.1 % (30-36); Mean Corpuscular Hemoglobin 30.5 PG (26-34); Mean Corpuscular Volume 89.4 fL (80-100); Monocytes Absolute Auto 1000 /uL (0-900); Monocytes Percent Auto 8.4 % (3-14); Neutrophils Absolute Auto 9300 /uL (1500-7000); Neutrophils Percent Auto 77.5 % (50-75); Platelet Count 261 X10^3/uL (150-400); Red Blood Cell Count 4.94 X10^6/uL (4.5-5.9)
[2019-12-31 14:33] LABS: INR 1.1 (0.9-1.3); Prothrombin Time 12.8 SECONDS (10.1-12.7)
[2019-12-31] MEDS: SODIUM CHLORIDE 0.9% 1,000 ML 1000 ML IV (14:33)
[2019-12-31 14:36] LABS: PTT Partial Thromboplastin Tim 36 SECONDS (26.4-36.2)
[2019-12-31 14:38] LABS: Alanine Aminotransferase 34 IU/L (<50); Albumin 4.4 g/dL (3.5-5.0); Albumin Globulin Ratio 1.3 (1.0-2.8); Alkaline Phosphatase 87 U/L (38-126); Aspartate Aminotransferase 24 IU/L (17-59); BUN Creatinine Ratio 15.1 (6-22); Bilirubin Total 0.6 mg/dL (0.2-1.3); Blood Urea Nitrogen 13 mg/dL (9-20); Calcium 9.5 mg/dL (8.4-10.2); Carbon Dioxide 29 mmol/L (22-32); Chloride 103 mmol/L (98-107); Estimated Glomerular Filt Rate > 60.0 mL/min (>60); Globulin 3.3 g/dL (1.7-4.1); Glucose 115 mg/dL (70-100); HEMOLYSIS < 15 (0-50); Potassium 4.2 mmol/L (3.4-5.1); Sodium 138 mmol/L (137-145); Total Protein 7.7 g/dL (6.3-8.2)
[2019-12-31 14:45] LABS: Lactate (Lactic Acid) 0.8 mmol/L (0.7-2.1)
--- NOTE | 2019-12-31 14:58 | DI.CT.S_ITS ---
PROCEDURE: CT ABDOMEN PELVIS W CON INDICATIONS: hx colitis and fistula, bilateral abd pain TECHNIQUE: After the administration of intravenous contrast, 5 mm thick sections acquired from the diaphragm to the symphysis. 5 mm coronal and sagittal reformats were acquired. For radiation dose reduction, the following was used: automated exposure control, adjustment of mA and/or kV according to patient size. COMPARISON: [facility], CT, CT CHEST ABD PEL W CON, 11/10/2019, 0:24. [facility], CT, CT ABDOMEN PELVIS W CON, 01/23/2019, 14:39. FINDINGS: Image quality: Excellent. ABDOMEN: Lung bases: Lung bases are clear. Heart size is normal. Solid organs: There is diffuse fatty infiltration of the liver. Gallbladder appears normal.. Biliary system is non dilated. Pancreas enhances normally. Spleen is normal in size and enhancement. No adrenal nodules. Kidneys demonstrate normal size and enhancement, without hydronephrosis. Peritoneum and bowel: Circumferential bowel wall thickening is again seen in the sigmoid colon with pericolonic fat stranding. A rim enhancing fluid collection is seen inferior to the sigmoid colon along the superior border of the bladder measuring approximately 3.4 x 1.1 x 2.6 cm, suspicious for abscess formation. There are no signs of bowel obstruction. No pneumoperitoneum is identified. Nodes and vessels: Increased number of inferior mesenteric artery lymph nodes are likely reactive. No significant retroperitoneal lymphadenopathy is seen. Aorta and inferior vena cava are normal in size. Miscellaneous: No ventral hernias. PELVIS: Genitourinary: There is mild thickening of the superior bladder wall that is likely reactive. No intravesicular gas is seen. Miscellaneous: No inguinal hernias or adenopathy. Bones: No suspicious bony lesions. No vertebral body compression fractures. IMPRESSION: Circumferential bowel wall thickening in the sigmoid colon is redemonstrated with mildly increased pericolonic fat stranding when compared to the CT from 11/10/2019. A 3.4 x 1.1 x 2.6 cm rim enhancing fluid collection is seen between the sigmoid colon and superior bladder that is suspicious for abscess formation. Dictated by: Tevin Flores M.D. on 12/31/2019 at 15:23 Approved by: Tevin Floers M.D. on 12/31/2019 at 15:36
[2019-12-31 15:06] LABS: Procalcitonin < 0.05 ng/mL (<0.5)
--- NOTE | 2019-12-31 15:46 | ED_ITS ---
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 Negative Urine Specific [place] 1.010 Bedside Urine Occult Blood - Negative Bedside Urine pH 6.5 Bedside Urine Protein - Negative Bedside Urine Urobilinogen +/- 1mg Bedside Urine Nitrite - Negative Bedside Urine Leukocytes - Negative Esterase Discharge Plan Departure Patient Disposition: Admitted as Observation Clinical Impression: [place]-vesical fistula, Abscess of sigmoid colon due to diverticulitis Discharge Date/Time: 12/31/19 17:07 Instructions: DI for Cervical Neck Fracture, DI for Colitis Referrals: Eden Dawson ARNP [Primary Care Provider] - Admit Date/Time: 12/31/19 16:06 Admit Provider: Mitch Castro <Heber Gonzalez MD - Last Filed: 01/03/20 13:01> Cosign ED Attending Cosignature Attestation: [facility]. This documentation has been reviewed and I agree with assessment and plan. Supervised by Heber Gonzalez MD
[2019-12-31] MEDS: SODIUM CHLORIDE 0.9% 1,000 ML 125 ML IV (16:15)
[2019-12-31] MEDS: PIPERACILLIN-TAZO 3.375 GM/50 ML FROZ.PIGGY IV (16:15)
[2019-12-31] MEDS: ONDANSETRON 4 MG/2 ML INJ IV (16:16)
[2019-12-31] MEDS: HYDROMORPHONE 0.5 MG INJ IV ×2 (16:20→21:25)
[2019-12-31 17:20] LABS: COVID19 -Nasal RAPID Negative (Negative)
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
[2020-01-01] VITALS (9 sets, daily range): BP systolic 129–144; BP diastolic 72–98; PULSE 75–88; RESP 15–20; TEMP 36.5–37.2; O2SAT 94–97
[2020-01-01] MEDS: PIPERACILLIN-TAZO 3.375 GM/50 ML FROZ.PIGGY IV ×4 (00:02→22:02)
[2020-01-01] MEDS: SODIUM CHLORIDE 0.9% 1,000 ML 125 ML IV ×3 (01:29→17:36)
[2020-01-01] MEDS: HYDROMORPHONE 0.5 MG INJ IV ×3 (03:52→23:49)
[2020-01-01 05:34] LABS: Add Manual Diff / Slide Review NO; Basophils Absolute Auto 100 /uL (0-100); Basophils Percent Auto 0.7 % (0-2); Eosinophils Absolute Auto 100 /uL (0-450); Hematocrit 40.7 % (41-53); Hemoglobin 13.9 g/dL (13.5-17.5); Lymphocytes Absolute Auto 2000 /uL (1100-4500); Lymphocytes Percent Auto 15.6 % (25-40); Mean Corpuscular Hemoglobin 30.2 PG (26-34); Mean Corpuscular Volume 88.8 fL (80-100); Monocytes Absolute Auto 1200 /uL (0-900); Monocytes Percent Auto 9.7 % (3-14); Neutrophils Absolute Auto 9200 /uL (1500-7000); Platelet Count 254 X10^3/uL (150-400); Red Blood Cell Count 4.59 X10^6/uL (4.5-5.9); Red Cell Distribution Width 14.2 % (11.6-14.8); White Blood Cell Count 12.6 X10^3/uL (4.5-11.0)
[2020-01-01 05:59] LABS: BUN Creatinine Ratio 11.1 (6-22); Blood Urea Nitrogen 10 mg/dL (9-20); Carbon Dioxide 29 mmol/L (22-32); Chloride 104 mmol/L (98-107); Estimated Glomerular Filt Rate > 60.0 mL/min (>60); Glucose 95 mg/dL (70-100); HEMOLYSIS < 15 (0-50); Sodium 139 mmol/L (137-145)
--- NOTE | 2020-01-01 10:54 | P.PN_ITS ---
Subjective Subjective Date Patient Seen: 01/01/20 Time Patient Seen: 10:54 Interval history: No acute events. Tolerating clear liquids without worsening of abdominal pain, afebrile. Exam Vital Signs (past 8 hours): - 01/01/20 04:00 01/01/20 08:00 Temperature 99.0 F 98.1 F Pulse Rate 77 75 Respiratory Rate 17 15 Blood Pressure 135/72 144/79 H Pulse Oximetry 95 97 Oxygen Delivery Method Room Air Oxygen Flow Rate 0 Narrative Exam Narrative: melk Objective Labs Result Diagrams: 01/01/20 05:10 01/01/20 05:10 Labs: Laboratory Results - last 24 hr 12/31/19 12/31/19 12/31/19 14:20 14:20 14:20 WBC 12.0 H RBC 4.94 Hgb 15.1 Hct 44.2 MCV 89.4 MCH 30.5 MCHC 34.1 RDW 14.0 Plt Count 261 Neut % (Auto) 77.5 H Lymph % (Auto) 13.1 L [place] % (Auto) 8.4 Eos % (Auto) 0.6 L Baso % (Auto) 0.4 Neut # (Auto) 9300 H Lymph # (Auto) 1600 [place] # (Auto) 1000 H Eos # (Auto) 100 Baso # (Auto) 100 PT 12.8 H INR 1.1 APTT 36 Sodium 138 Potassium 4.2 Chloride 103 Carbon Dioxide 29 BUN 13 Creatinine 0.86 Estimated GFR > 60.0 BUN/Creatinine Ratio 15.1 Glucose 115 H Lactate Calcium 9.5 Total Bilirubin 0.6 AST 24 ALT 34 Alkaline Phosphatase 87 Total Protein 7.7 Albumin 4.4 Globulin 3.3 Albumin/Globulin Ratio 1.3 Procalcitonin COVID-19 PCR 12/31/19 12/31/19 12/31/19 14:34 14:34 16:05 WBC RBC Hgb Hct MCV MCH MCHC RDW Plt Count Neut % (Auto) Lymph % (Auto) [place] % (Auto) Eos % (Auto) Baso % (Auto) Neut # (Auto) Lymph # (Auto) [place] # (Auto) Eos # (Auto) Baso # (Auto) PT INR APTT Sodium Potassium Chloride Carbon Dioxide BUN Creatinine Estimated GFR BUN/Creatinine Ratio Glucose Lactate 0.8 Calcium Total Bilirubin AST ALT Alkaline Phosphatase Total Protein Albumin Globulin Albumin/Globulin Ratio Procalcitonin < 0.05 COVID-19 PCR Negative 01/01/20 01/01/20 05:10 05:10 WBC 12.6 H RBC 4.59 Hgb 13.9 Hct 40.7 L MCV 88.8 MCH 30.2 MCHC 34.0 RDW 14.2 Plt Count 254 Neut % (Auto) 73.0 Lymph % (Auto) 15.6 L [place] % (Auto) 9.7 Eos % (Auto) 1.0 L Baso % (Auto) 0.7 Neut # (Auto) 9200 H Lymph # (Auto) 2000 [place] # (Auto) 1200 H Eos # (Auto) 100 Baso # (Auto) 100 PT INR APTT Sodium 139 Potassium 4.0 Chloride 104 Carbon Dioxide 29 BUN 10 Creatinine 0.90 Estimated GFR > 60.0 BUN/Creatinine Ratio 11.1 Glucose 95 Lactate Calcium 9.0 Total Bilirubin AST ALT Alkaline Phosphatase Total Protein Albumin Globulin Albumin/Globulin Ratio Procalcitonin COVID-19 PCR Assessment & Plan Assessment & Plan narrative: 34-year-old male with colovesicular fistula admitted for worsening sigmoid colitis. Will continue management with IV antibiotics with the goal of transition him to p.o. antibiotics and discharge home. Ultimately he will need a sigmoid resection ideally this will be done electively once the colitis has resolved. -advance regular diet -Zosyn -SCDs Quality VTE Deep Vein Thrombosis/Pulmonary Embolism Present on Admission: No
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
[2020-01-01 23:11] LABS: Influenza A - CEPHEID Flu A NEGATIVE (NEGATIVE); Influenza B - CEPHEID Flu B NEGATIVE (NEGATIVE)
[2020-01-02] VITALS: BP 141/90; PULSE 75; RESP 18; TEMP 36.6; O2SAT 97
[2020-01-02] MEDS: PIPERACILLIN-TAZO 3.375 GM/50 ML FROZ.PIGGY IV ×2 (03:31→09:54)
[2020-01-02] MEDS: SODIUM CHLORIDE 0.9% 1,000 ML 125 ML IV (03:36)
[2020-01-02 05:00] VITALS: BP 123/60; PULSE 73; RESP 18; TEMP 36.5; O2SAT 98
[2020-01-02 08:00] VITALS: O2SAT 97
[2020-01-02 09:02] LABS: Add Manual Diff / Slide Review NO; Basophils Absolute Auto 0 /uL (0-100); Basophils Percent Auto 0.1 % (0-2); Eosinophils Absolute Auto 100 /uL (0-450); Eosinophils Percent Auto 0.6 % (2-4); Hematocrit 41.4 % (41-53); Lymphocytes Absolute Auto 1900 /uL (1100-4500); Lymphocytes Percent Auto 14.6 % (25-40); Mean Corpuscular HGB Conc 33.9 % (30-36); Mean Corpuscular Hemoglobin 30.2 PG (26-34); Mean Corpuscular Volume 89.1 fL (80-100); Monocytes Absolute Auto 1400 /uL (0-900); Monocytes Percent Auto 10.9 % (3-14); Neutrophils Absolute Auto 9500 /uL (1500-7000); Neutrophils Percent Auto 73.8 % (50-75); Platelet Count 271 X10^3/uL (150-400); Red Blood Cell Count 4.64 X10^6/uL (4.5-5.9); Red Cell Distribution Width 13.9 % (11.6-14.8); White Blood Cell Count 12.8 X10^3/uL (4.5-11.0)
[2020-01-02 09:18] LABS: BUN Creatinine Ratio 10.7 (6-22); Blood Urea Nitrogen 9 mg/dL (9-20); Calcium 9.1 mg/dL (8.4-10.2); Carbon Dioxide 25 mmol/L (22-32); Chloride 106 mmol/L (98-107); Estimated Glomerular Filt Rate > 60.0 mL/min (>60); Glucose 98 mg/dL (70-100); HEMOLYSIS < 15 (0-50); Potassium 3.8 mmol/L (3.4-5.1); Sodium 139 mmol/L (137-145)
[2020-01-02 10:00] VITALS: BP 124/79; PULSE 82; RESP 16; TEMP 36.8; O2SAT 97
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
[2020-01-02] MEDS: HYDROMORPHONE 0.5 MG INJ IV (11:07)
--- NOTE | 2020-01-02 13:51 | PC.NURSE ---
Discharge: Pt up in room indep. later in the morning got some dilaudid for abd bloating and pain. Med was effective. Tolerates diet w/out problems, vds w/out diff. Rx e sent. Reviewed d/c packet. Questions answered. Pt d/c home via auto w/friend.
== END 2020-01-02 12:45 | disposition home or self-care (01) | DRG 244 ==
LOC: ED 16:06 → AC 01-01 08:52
PROVIDERS: Emergency Medicine; Admitting Provider Surgery; Emergency Provider Nurse Practitioner Family; PCP Nurse Practitioner Family; Referring Provider Nurse Practitioner Family; Visit Provider Surgery
DX: K57.32 Diverticulitis of large intestine without perforation or abscess without bleeding (principal); N32.1 Vesicointestinal fistula; F32.9 Major depressive disorder, single episode, unspecified; Z87.891 Personal history of nicotine dependence; Z03.818 Encounter for observation for suspected exposure to other biological agents ruled out
CPT/HCPCS: 36415; 74177; 80048; 80053; 81003; 83605; 84145; 85025; 85610; 85730; 87502; 87635; 93005; 96361; 96365; 96375; 99222; 99232; 99238; 99284; G0378; J1170; J2405; J2543; Q9967

== ENCOUNTER → 2020-02-07 10:55 | Outpatient (CLI) | payer OTHER, MEDICAID, SELFPAY ==
[2020-02-04 09:10] VITALS: BMI 28.8
[2020-02-07 11:59] LABS: COVID19 -Nasal RAPID Negative (Negative)
== END ==
PROVIDERS: PCP Nurse Practitioner Family; Visit Provider Surgery
DX: Z11.59 Encounter for screening for other viral diseases (principal)
CPT/HCPCS: 87635; C9803

== ENCOUNTER 2020-02-10 07:33 | Day surgery (SDC) | payer OTHER, MEDICAID, SELFPAY ==
[2019-12-31 17:49] VITALS: BMI 28.8
[2020-02-04 09:10] VITALS: BMI 28.8
[2020-02-10 07:49] VITALS: BP 150/96; PULSE 115; RESP 18; TEMP 36.8; O2SAT 96; BMI 28.8
[2020-02-10] MEDS: LACTATED RINGERS 1,000 ML 200 ML IV (08:07)
--- NOTE | 2020-02-10 08:28 | PM.HP.1 ---
History of Present Illness History of Present Illness Date Patient Seen: 02/10/20 Time Patient Seen: 08:28 Chief complaint: DX COLONOSCOPY Narrative: 35-year-old man known to me with complicated diverticulitis and a colovesicular fistula. He is here for colonoscopy prior to sigmoid colectomy. Currently feeling well no acute concerns. Patient History Medical History Chronic pain of right ankle (2005) Colovesical fistula (2018) Depression Diverticulosis large intestine w/o perforation or abscess w/o bleeding (11/2018) Eczema (2005) Nodule of left external ear Family & Social History Family History Mother Cancer Grandmother Diabetes mellitus Grandfather Diabetes mellitus Social History: household members family Tobacco & Substance use: Smoking Status Former smoker alcohol intake former alcohol intake frequency 0-2 drinks per day Substance Use Type marijuana Meds Home Medications and Allergies Home Medications Medication Instructions Recorded Confirmed Type meloxicam 15 mg tablet 15 mg PO DAILY PRN #90 tab 12/07/18 02/10/20 Rx triamcinolone acetonide 0.1 % 1 applictn TOP BID #30 gram 12/07/18 02/10/20 Rx topical cream famotidine 10 mg tablet 10 mg PO DAILY #90 tab 11/07/19 02/10/20 Rx aspirin 325 mg tablet 325 mg PO DAILY 11/13/19 02/10/20 History Allergies Allergy/AdvReac Type Severity Reaction Status Date / Time morphine [MORPHINE] Allergy Mild Red and Verified 01/08/20 09:51 blotchy skin acetaminophen [ACETAMINOPHEN] AdvReac Mild NAUSEA Verified 01/08/20 09:51 Review of Systems Review of Systems Narrative: A 10 point review of systems is negative except as noted in the HPI Exam Vital Signs (past 8 hours): - 02/10/20 07:49 Temperature 98.3 F Pulse Rate 115 H Respiratory Rate 18 Blood Pressure 150/96 H Pulse Oximetry 96 Oxygen Delivery Method Room Air Narrative Exam Narrative: General-no acute distress, well nourished HEENT-moist mucous membranes, no scleral icterus Neck-supple, no lymphadenopathy Chest- non labored respirations, clear to auscultation bilaterally Cardiac-regular rate no peripheral edema Abdomen-soft, nontender, non distended Extremities-warm, well perfused Neurological-alert and oriented, no focal deficits Assessment & Plan Assessment & Plan narrative: 35-year-old male with complicated diverticulitis with an upcoming elective sigmoid colectomy. He is here for screening colonoscopy and evaluation of his diverticular disease prior to resection. Technical details were discussed. Procedure risks including bleeding infection perforation were discussed his questions have been answered a plan.
[2020-02-10] MEDS: MIDAZOLAM 5 MG/5 ML VIAL IV (08:45)
[2020-02-10] MEDS: fentaNYL 250 MCG/5 ML INJ IV (08:45)
--- NOTE | 2020-02-10 09:03 | PM.OP.ENDO ---
Operative Date/Time/Diagnoses Date of procedure: 02/10/20 Time of procedure: 09:03 Pre-op diagnosis: Colovesicular fistula, diverticulitis Post-op diagnosis: same Procedure & Clinicians Study performed: Colonoscopy Same procedure as scheduled: Yes Indications: 35-year-old man with complicated diverticulitis and a colovesicular fistula here preoperatively for sigmoid colectomy Surgeon: Mitch Castro Procedure Notes Procedure in detail: Medications: Conscious sedation using 9mg IV midazolam and 250mcg IV of fentanyl The history and physical was performed/updated and the patient is ASA class is 2. The procedure was discussed in detail with the patient. Potential risks complications including infection, bleeding, missed diagnosis, perforation, need for surgery, and were explained. Their questions were answered and informed consent was obtained. Patient was brought to the procedure room and placed standard monitoring equipment. The patient's vital signs were monitored continuously throughout the entire procedure. Prior to starting time-out was performed. The ablation patient was placed in the left lateral recumbent position. Procedural sedation was administered. Examination began with a thorough inspection of the perianal area there was no evidence of fissures, fistulae, external hemorrhoids or cutaneous malignancy. The colonoscopy scope was then placed into the anal canal and was advanced to the cecum, which was identified by the ileocecal valve, the appendiceal orifice and the confluence of the taenia. The scope was then slowly withdrawn examining colon thoroughly in all directions, irrigating it of any residual stool. Sigmoid diverticulosis, there was an segment of approximately 10 cm from 20-30 cm from the anal verge of severe inflammation. I tattooed the distal aspect of the disease which was at about 30 cm from the verge with 2 mL of ink divided across the quadrants. Performance of the tattoo was not ideal and the spreading across the mucosa was less than average and I think this was secondary to the degree of inflammation colonic tissue The patient tolerated the procedure well. They will be discharged once criteria are met. The prep was of fair quality. The withdrawl time was 12 minutes. The sedation time was 32 minutes. Findings: diverticulosis Specimen(s): none sent Complications: none Impression: Diverticulosis Post-procedure Plan for aftercare: Sigmoid colectomy next month Disposition: same day surgery
[2020-02-10 09:07] VITALS: BP 116/88; PULSE 89; RESP 21; TEMP 36.1; O2SAT 95
[2020-02-10 09:11] VITALS: BP 126/82; PULSE 87; RESP 21; O2SAT 95
[2020-02-10 09:21] VITALS: BP 119/74; PULSE 92; RESP 14; O2SAT 96
[2020-02-10 09:27] VITALS: BP 122/83; PULSE 89; RESP 14; TEMP 36.8; O2SAT 96
== END 2020-02-10 09:37 | disposition home or self-care (01) ==
PROVIDERS: PCP Nurse Practitioner Family; Referring Provider Surgery; Visit Provider Surgery
PROC: 0DJD8ZZ Inspection of Lower Intestinal Tract, Via Natural or Artificial Opening Endoscopic (ICD-10-PCS; CPT 45378; principal; 2020-02-10 08:30)
DX: K57.32 Diverticulitis of large intestine without perforation or abscess without bleeding (principal); N32.1 Vesicointestinal fistula; K57.30 Diverticulosis of large intestine without perforation or abscess without bleeding
CPT/HCPCS: 45381; 99152; 99153; J2250; J3010

== ENCOUNTER → 2020-02-24 10:54 | Outpatient (CLI) | payer OTHER, MEDICAID, SELFPAY ==
[2020-02-04 09:10] VITALS: BMI 28.8
[2020-02-24 11:51] LABS: COVID19 -Nasal RAPID Negative (Negative)
== END ==
PROVIDERS: PCP Nurse Practitioner Family; Visit Provider Surgery
DX: Z11.59 Encounter for screening for other viral diseases (principal)
CPT/HCPCS: 87635

== ENCOUNTER 2020-02-25 06:22 | Inpatient (IN) | payer OTHER, MEDICAID, SELFPAY ==
[2019-12-31 17:49] VITALS: BMI 28.8
[2020-02-04 09:10] VITALS: BMI 28.8
[2020-02-21 11:46] VITALS: BMI 28.8
[2020-02-25] VITALS (16 sets, daily range): BP systolic 115–150; BP diastolic 69–106; PULSE 67–96; RESP 10–20; TEMP 35.7–36.9; O2SAT 90–99; BMI 28.1
--- NOTE | 2020-02-25 | PATH_ITS ---
[facility] Accession Number: [id number] . 01 Material submitted: . colon - SIGMOID COLON . 01 Clinical history: . LAPAROSCOPICALLY ASSISTED COLECTOMY . 02 Diagnosis: Sigmoid Colon, Segmental Resection: Segment of colon with diverticulosis, mural abscess and foreign body-type granulomatous inflammation, consistent with diverticulitis. Five benign pericolonic lymph nodes. No evidence of neoplasm. MRV 02/27/2020 1045 Local . 02 Electronically signed: . Chepe Cuevas MD, PhD, Pathologist NPI- [id number] . 01 Gross description: . The specimen is received in formalin, labeled sigmoid colon and consists of a 13.5 cm in length x 5.5 cm in circumference previously opened portion of colon with two stapled margins. The serosa is deshpande-pink with focal areas of fibrinous adhesions and a moderate amount of attached adipose tissue. Opening reveals a deshpande mucosa with normal mucosal folds. Multiple diverticula are identified throughout the specimen. The wall thickness measures up to 1.0 cm. Multiple lymph nodes are identified within the attached adipose tissue ranging from 0.1 to 0.3 cm. Also, received is a disrupted irregular portion of colon measuring 3.5 x 3.0 x 2.0 cm. The mucosa is deshpande-pink with normal mucosal folds, and the wall thickness measures 0.2 cm. Link Cutter sections are submitted. . A1-A2 - Stapled margin, technology sales representative perpendicular sections (blue). A3-A5 - Link Cutter diverticula. A6 - Intact lymph nodes. A7 - Link Cutter additional portion of colon. ([id number]) /[facility] 02/26/2020 1619 Local . 02 Pathologist provided ICD-10: K57.20 . 02 CPT . 508965 Performed at: 01 [facility] [address] [place] [address], [place], [place] [id number] MD Rolf York MD Phone: [phone] Performed at: 02 [facility] [address] [place], [place] [id number] MD Yoko Davalos MD Phone: [phone]
[2020-02-25] MEDS: LACTATED RINGERS 1,000 ML 42 ML IV ×4 (07:06→13:27)
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
[2020-02-25] MEDS: PIPERACILLIN-TAZO 3.375 GM/50 ML FROZ.PIGGY IV ×3 (07:45→16:01)
--- NOTE | 2020-02-25 07:51 | PM.PREOP ---
Pre-operative Note Interval Note History & Physical reviewed/Exam performed by Physician: Yes Changes to H&P: No
[2020-02-25] MEDS: ACETAMINOPHEN IV 1,000 MG/100 ML VIAL 400 MG IV ×2 (08:05→13:31)
[2020-02-25] MEDS: MINERAL OIL LIGHT TOPICAL 25 ML 10 ML TOP (08:10)
--- NOTE | 2020-02-25 08:25 | PM.OP.1 ---
Operative Date/Time/Diagnoses Date of procedure: 02/25/20 Time of procedure: 08:25 Pre-op diagnosis: Complicated diverticulitis Post-op diagnosis: same Procedure & Clinicians Procedure: 1. Cystoscopy/placement bilateral localizing ureteral stents Same procedure as scheduled: Yes Indications: 1. Complicated diverticulitis Surgeon: Rajeev Verde Click Yes if Unassisted: Yes Anesthesia Type: General Operative Notes Findings: 1. Urethra-normal caliber without lesion or stricture. 2. External sphincter-coapted with normal overlying urothelium. 3. Prostate-3 +cm length with nonobstructing lateral lobes. 4. Bladder-contents some turbid without amorphous solids. Normal ureteral orifices bilaterally. Closure Type: not applicable Specimen(s): none sent Applied: other (Bilateral illuminating and localizing ureteral stents.) Estimated Blood Loss (mL): 0 Blood products transfused: none Tourniquet time (min): 0 Procedure in detail: Patient was positioned in supine was administered general anesthesia. Patient was then repositioned in semi lithotomy and the lower abdomen, genitalia, and perineum were prepped and draped in sterile fashion. Next, the 25 Libyan panendoscope was passed lower urinary tract with the findings as described above. Next a hybrid 0.35 guidewire was selected and this was advanced through the scope and into the right ureteral orifice and advanced proximally. Over this a marked ureteral stent sheath was advanced over the wire and into the right collecting system. The wire was then withdrawn. Next, the same steps and maneuvers were performed to advance in on labeled ureteral stent over the guidewire in the left collecting system. The guidewire was then removed. The panendoscope was then backloaded off the localizing ureteral stents she has. A 16 Libyan Kent catheter was inserted lower urinary track, the balloon inflated to 10 cc, and then placed to gravity drainage. The illuminating fibers were then positioned within the localize ureteral stent sheaths bilaterally and secured in place with Tegaderm to the both the Kent catheter and to 1 another. The patient was then repositioned and prepped for Dr. Castro planned operative procedures, the details which can be found in his report. Complications: none Post-operative Condition: stable Disposition: PACU Plan for aftercare: Acute care.
--- NOTE | 2020-02-25 08:52 | SUR.OPER ---
Lithotomy on padded OR bed. [place] Pad Positioner under torso. Head on pillow, right arm padded and tucked at side, left arm secured on padded arm board <90 abduction. Legs secured in padded yellow fins stirrups.
[2020-02-25] MEDS: BUPIVACAINE 0.25% (PF) VIAL 30 ML INJ (08:55)
[2020-02-25] MEDS: METHYLENE BLUE 50 MG/10 ML VIAL 100 MG IV (12:27)
[2020-02-25] MEDS: BUPIVACAINE LIPOSOME 266 MG/20 ML VIAL INJ (12:54)
[2020-02-25] MEDS: OXYCODONE IR 5 MG TABLET PO ×3 (14:35→19:33)
[2020-02-25] MEDS: SODIUM CHLORIDE 0.9% 1,000 ML 100 ML IV (15:49)
--- NOTE | 2020-02-25 16:52 | PM.OP.1 ---
Operative Date/Time/Diagnoses Date of procedure: 02/25/20 Time of procedure: 16:52 Pre-op diagnosis: complicated diverticulitis colovesicular fistula Post-op diagnosis: same Procedure & Clinicians Procedure: laparoscopic assisted sigmoid colectomy with end colostomy cystostcopy and bilateral ureteral stent placement Same procedure as scheduled: Yes Indications: 35 M with complicated diverticulitis and a colovesicular fistula here for elective sigmoid resection. Surgeon: Mitch Castro Application Manager: Cody Lee Anesthesia Type: General Operative Notes Findings: fibrosis extends from the sigmoid to the rectum at the peritoneal reflection. No active vesciular fistula. Closure Type: primary Specimen(s): other (sigmoid colon) Estimated Blood Loss (mL): 400 Procedure in detail: The patient was brought to the operating room and placed supine on the table. Bilateral lower extremity compression devices were applied. General anesthesia was induced and they were intubated with an endotracheal tube. They were placed in the lithotomy position and prepped and draped in sterile fashion. Dr. Verde performed a cystoscopy and bilateral ureteral stent placement. A pantoja catheter was placed under sterile condition. They received 3.375 g of Zosyn prior to skin incision. Time-out was performed to ensure the correct patient procedure necessary equipment within the operating room. An infraumbilical 1 cm incision was made, the umbilical stalk was elevated, the fascia was sharply incised and the abdomen was entered atraumatically. Pneumoperitoneum was established. The laparoscope was inserted into the abdomen, inspection was made there was no evidence of injury upon entry. 5 mm ports were placed suprapubic, left lower quadrant and a 12 mm trocar in the right lower quadrant. There were significant adhesions between the the sigmoid colon and the left pelvic sidewall and omentum was adherent to the sigmoid colon consistent with a history of perforated diverticulitis. The attachments between the sigmoid colon and the side wall were taken with electrocautery and dissection was carried along the white line of Toldt towards the splenic flexure. Turing towards the pelvis the distal sigmoid was densely fibrotic and adherent to the lateral wall. I could not proceed safely with laparoscopy and made a lower midline incision. Using finger fracture and sharp dissection the distal sigmoid was mobilized off the lateral wall. The iliac vessels and the crossing ureter with its stent was palpable and kept lateral out of harms way. The proximal sigmoid colon was divided with the SHINE stapler 75mm blue load and then the sigmoid was used as a handle to work into the pelvis. The sigmoid colon was adherent to the bladder and was dissected off it however careful inspection of the dome of the bladder demonstrated no visible fistula into the bladder. The bladder was instilled with methylene blue and this also did not demonstrate a fistula from the bladder, I suspect the fistula had closed spontaneously. I continued mobilizing the rectum from its attachements down to the peritoneal reflection. The rectum was extremely fibrotic to just about 1-2 cm above the reflection and below this point it was less fibrotic but still not normal tissue. A colonoscopy was performed and the lumen of the rectum was fairly normal except for diverticulosis. Given the fibrosis of the rectal stump I did not think that it was safe to proceed with an anastomosis given the extremely high risk of leak. Additionally dissecting out the rectum below the peritoneal reflection with the hope of finding normal tissue would place him at risk I could damage the rectal stump and he would then have a permanent colostomy or that I would not find normal tissue safe to perform an anastamosis. Given these choices I decided to proceed with a Rk's and the possibility of a future colostomy reversal. I chose a spot of the best available tissue in the mid rectum and divided the rectum which was then closed with interrupted silk suture, it was too fibrotic to safely divided with a stapler. A drain was left near the rectal stump and brought out through the right abdominal wall. There was sufficient length to fashion a tension free descending colostomy. The abdomen was irrigated hemostasis was achieved. A hole in the skin was made on the left abdominal wall the fascia divided in cruciate fashion to accommodate two fingers. The descending colon was then brought up through the abdominal wall. The midline fascia was closed in running fashion with #1 PDS. The subcutaneous tissues were reapproximated using 3 0 Vicryl, skin closed with radha. The staple line was excised from the colon and the colostomy was secured with interupted vicryl suture to the abdominal wall. The sponge instrument count at the end of the operation was correct. The patient emerged from general anesthesia, extubated and transferred to the postoperative care unit in stable condition. Complications: none Post-operative Condition: stable Disposition: Acute Care
[2020-02-25] MEDS: HYDROMORPHONE 1 MG INJ 0.5 MG IV (17:05)
[2020-02-25] MEDS: LORazepam 2 MG/ML INJ 0.25 MG IV (17:06)
[2020-02-25] MEDS: HYDROMORPHONE 2 MG INJ IV (19:32)
[2020-02-25] MEDS: ACETAMINOPHEN 325 MG TABLET 650 MG PO (19:33)
[2020-02-26] VITALS (9 sets, daily range): BP systolic 119–150; BP diastolic 76–97; PULSE 75–95; RESP 15–20; TEMP 36.3–37.4; O2SAT 97–99
[2020-02-26] MEDS: ACETAMINOPHEN 325 MG TABLET 650 MG PO ×4 (00:04→18:01)
--- NOTE | 2020-02-26 01:18 | PC.NURSE ---
Addendum entered by Bobbi Veliz R.N. 02/26/20 06:30: 0615 The patient is resting, currently denies pain. He did have shoulder pain during the night, attributed to gas injected during surgical procedure. He felt better once repositioned and medicated. Original Note: 2315 Received safe hand-off report. The patient is awake and lying in bed; oriented x4. He denies post-op pain at the moment. He has a right forearm PIV with NS infusing at 100mL/h. He is on room air. He has a LUQ stoma that is red, beefy and draining a small amount of sangionous fluid. He also has a NOEMÍ drain that is draining serosangionous fluid. His midline abdominal incision is covered with a gauze pad that is CDI. He has bilateral calf SCD's in place. The bed alarm is on. No s/sx of distress. Plan: Treat pain PRN. Prevent skin breakdown. Monitor drain and stoma.
[2020-02-26] MEDS: SODIUM CHLORIDE 0.9% 1,000 ML 100 ML IV (02:32)
[2020-02-26] MEDS: OXYCODONE IR 5 MG TABLET PO ×3 (04:11→19:04)
[2020-02-26 05:23] LABS: Add Manual Diff / Slide Review NO; Basophils Absolute Auto 100 /uL (0-100); Basophils Percent Auto 0.6 % (0-2); Eosinophils Absolute Auto 0 /uL (0-450); Hematocrit 40.8 % (41-53); Hemoglobin 13.7 g/dL (13.5-17.5); Lymphocytes Absolute Auto 1600 /uL (1100-4500); Mean Corpuscular HGB Conc 33.5 % (30-36); Mean Corpuscular Hemoglobin 29.8 PG (26-34); Mean Corpuscular Volume 88.9 fL (80-100); Monocytes Absolute Auto 1900 /uL (0-900); Monocytes Percent Auto 9.5 % (3-14); Neutrophils Absolute Auto 16800 /uL (1500-7000); Neutrophils Percent Auto 81.9 % (50-75); Platelet Count 363 X10^3/uL (150-400); Red Blood Cell Count 4.59 X10^6/uL (4.5-5.9); Red Cell Distribution Width 14.7 % (11.6-14.8); White Blood Cell Count 20.5 X10^3/uL (4.5-11.0)
[2020-02-26 05:30] LABS: BUN Creatinine Ratio 11.6 (6-22); Blood Urea Nitrogen 11 mg/dL (9-20); Carbon Dioxide 31 mmol/L (22-32); Chloride 103 mmol/L (98-107); Estimated Glomerular Filt Rate > 60.0 mL/min (>60); Glucose 128 mg/dL (70-100); HEMOLYSIS < 15 (0-50); Phosphorous 3.7 mg/dL (2.5-4.5); Potassium 4.3 mmol/L (3.4-5.1); Sodium 136 mmol/L (137-145)
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
--- NOTE | 2020-02-26 16:11 | PC.NURSE ---
Ostomy Nurse Consult Note Victor M awake,very alert sitting up in the chair. He said he has done some research on the internet regarding ostomies and has watched several youtube videos. I gave him the [employer] New Patient Guide and he said he would read over it tonight and tomorrow. 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 I directed him to the section in the [employer] guide about hernias and hernia prevention. I showed him the crusting technique and it uses. We discussed nutrition and no dietary restrictions. He has asked very good questions and he feels he can manage taking care of his ostomy for the next 6 months until his reversal. He will ask his father to come in for a teaching session with me, most likely this February 27 in the afternoon. As Mirta, Care Management noted he lives with his parents and they are a very close knit family. The stoma is beefy red, moist with serosanguineous drainage in the pouch. The stoma is edematous. The NOEMÍ drain in his right side is draining serosanguineous drainage. His mid-line incisional dressing is dry and intact. I will return tomorrow and I will change his appliance and have Victor M practice changing the appliance on the stoma model. I will return tomorrow after 1430.
[2020-02-27] VITALS (7 sets, daily range): BP systolic 131–138; BP diastolic 78–88; PULSE 81–93; RESP 16–19; TEMP 36.6–36.8; O2SAT 96–99
[2020-02-27] MEDS: ACETAMINOPHEN 325 MG TABLET 650 MG PO ×5 (00:15→23:53)
[2020-02-27] MEDS: ONDANSETRON 4 MG/2 ML INJ IV ×2 (00:15→16:53)
[2020-02-27 05:06] LABS: Add Manual Diff / Slide Review NO; Basophils Absolute Auto 0 /uL (0-100); Basophils Percent Auto 0.3 % (0-2); Eosinophils Absolute Auto 100 /uL (0-450); Eosinophils Percent Auto 0.6 % (2-4); Hematocrit 38.9 % (41-53); Hemoglobin 12.8 g/dL (13.5-17.5); Lymphocytes Absolute Auto 2100 /uL (1100-4500); Lymphocytes Percent Auto 12.6 % (25-40); Mean Corpuscular Hemoglobin 29.4 PG (26-34); Mean Corpuscular Volume 89.2 fL (80-100); Monocytes Absolute Auto 1600 /uL (0-900); Monocytes Percent Auto 9.6 % (3-14); Neutrophils Absolute Auto 12900 /uL (1500-7000); Neutrophils Percent Auto 76.9 % (50-75); Platelet Count 298 X10^3/uL (150-400); Red Blood Cell Count 4.37 X10^6/uL (4.5-5.9); Red Cell Distribution Width 14.6 % (11.6-14.8); White Blood Cell Count 16.8 X10^3/uL (4.5-11.0)
[2020-02-27 05:16] LABS: Blood Urea Nitrogen 12 mg/dL (9-20); Calcium 9.1 mg/dL (8.4-10.2); Carbon Dioxide 34 mmol/L (22-32); Chloride 102 mmol/L (98-107); Estimated Glomerular Filt Rate > 60.0 mL/min (>60); Glucose 120 mg/dL (70-100); HEMOLYSIS < 15 (0-50); Magnesium 2.2 mg/dL (1.6-2.3); Phosphorous 3.2 mg/dL (2.5-4.5); Potassium 4.2 mmol/L (3.4-5.1); Sodium 136 mmol/L (137-145)
[2020-02-27] MEDS: ENOXAPARIN 30 MG/0.3 ML SYRINGE SUBCUT (10:02)
[2020-02-27] MEDS: OXYCODONE IR 5 MG TABLET PO ×3 (10:03→23:53)
[2020-02-27] MEDS: SODIUM CHLORIDE 0.9% FLUSH 10 ML IV ×2 (10:03→21:05)
--- NOTE | 2020-02-27 15:26 | PC.NURSE ---
Post-op: Has been up and amb in the hallway. Gait is steady. Acetominophen and oxy are keeping pain in control. No stool or flatus in pouch yet. Does have BT's and is belching. Sl distended in abd but feels less bloated and gassy today. Pt denies any concerns. Cont w/poc.
--- NOTE | 2020-02-27 17:02 | PC.NURSE ---
Ostomy Nurse Consult Note Victor M awake sitting in bed talking with friends on his phone. He is tolerating fluids and soft foods. I changed his appliance and spoke to him about what I was doing while I was changing it. His stoma is edematous,moist, beefy red with an area at the 6-8:00 position of dark tissue. The stoma is flush with his skin, and the stomal sutures are intact. The stoma measures 38mm. He had 200cc of liquid brown effluent that I emptied. The mildred-stomal skin is intact yet there is some yellowing/bruising. His mid-line incision is dry and intact. The NOEMÍ drain is draining serosanguenous drainage. I placed him in a 57 mm Convatec moldable appliance with a clear, non-filter pouch. Victor M practice cutting a one piece appliance and applied it to the model. We reviewed different appliances as well as discussed using stoma paste, powder and barrier rings. Victor M was tired and we will continue teaching and stoma assessment tomorrow around 3:00 when his mother will be here to learn about ostomy care.
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
[2020-02-28] VITALS (8 sets, daily range): BP systolic 125–152; BP diastolic 80–97; PULSE 75–101; RESP 16–20; TEMP 36.4–37.4; O2SAT 96–100
[2020-02-28 04:57] LABS: Add Manual Diff / Slide Review NO; Basophils Absolute Auto 100 /uL (0-100); Basophils Percent Auto 0.6 % (0-2); Eosinophils Absolute Auto 400 /uL (0-450); Eosinophils Percent Auto 2.9 % (2-4); Hematocrit 37.2 % (41-53); Hemoglobin 12.4 g/dL (13.5-17.5); Lymphocytes Absolute Auto 3000 /uL (1100-4500); Lymphocytes Percent Auto 23.1 % (25-40); Mean Corpuscular HGB Conc 33.5 % (30-36); Mean Corpuscular Volume 89.5 fL (80-100); Monocytes Absolute Auto 1300 /uL (0-900); Neutrophils Absolute Auto 8200 /uL (1500-7000); Neutrophils Percent Auto 63.4 % (50-75); Platelet Count 292 X10^3/uL (150-400); Red Blood Cell Count 4.15 X10^6/uL (4.5-5.9); Red Cell Distribution Width 14.8 % (11.6-14.8); White Blood Cell Count 12.9 X10^3/uL (4.5-11.0)
[2020-02-28 05:31] LABS: BUN Creatinine Ratio 12.8 (6-22); Blood Urea Nitrogen 10 mg/dL (9-20); Calcium 9.3 mg/dL (8.4-10.2); Carbon Dioxide 32 mmol/L (22-32); Chloride 103 mmol/L (98-107); Estimated Glomerular Filt Rate > 60.0 mL/min (>60); Glucose 102 mg/dL (70-100); Magnesium 2.1 mg/dL (1.6-2.3); Phosphorous 4.3 mg/dL (2.5-4.5); Potassium 4.1 mmol/L (3.4-5.1); Sodium 137 mmol/L (137-145)
[2020-02-28 05:42] LABS: HEMOLYSIS 56 (0-50)
[2020-02-28] MEDS: ACETAMINOPHEN 325 MG TABLET 650 MG PO ×3 (06:23→19:32)
[2020-02-28] MEDS: OXYCODONE IR 5 MG TABLET PO ×3 (06:23→21:41)
[2020-02-28] MEDS: levoFLOXacin 250 MG TABLET 750 MG PO (09:46)
[2020-02-28] MEDS: ENOXAPARIN 40 MG/0.4 ML SYRINGE SUBCUT (09:46)
[2020-02-28] MEDS: SODIUM CHLORIDE 0.9% FLUSH 10 ML IV ×2 (09:49→19:33)
--- NOTE | 2020-02-28 14:58 | PC.NURSE ---
Addendum entered by Sushma Randall R.N. 02/28/20 15:02: Dressing CDI, Araceli to see Pt later today, left this in place. Original Note: Am shift Pt A/o x4, pain well controlled with APAP and oxycodone. Flatus and liquid stool to Colostomy. Kent patent, sediment noted, Will collect sample for UA prior to pyridium. Lungs CTA, Spo2 99% RA. Indep in room. Likely d/c this weekend.
--- NOTE | 2020-02-28 15:41 | CM.DPC ---
DCP: continued: case received, EMR reviewed and including track grinder operator Araceli Chou' note and plan. Met now with pt and his father, here to have an ostomy teach session with Araceli, expected today at about this time. Neither were clear if a HH RN would be needed to partner on the ostomy process once pt goes homoe or if pt will follow up at [facility] for direct followup with Araceli. Have now left Araceli a message on her cell to ask about this and will follow up accordingly after she clarifies this. Dr. Castro states in his documentation that d/c is expected this weekend. P: home with support of parents when stable for same (and ? HH as per above).
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
--- NOTE | 2020-02-28 17:17 | PC.NURSE ---
Ostomy Nurse Consult Note Victor M awake and alert, his father, Telly is here at the bedside to learn about ostomy care. I did not change Victor M's appliance at this visit. His stoma is red and edematous. He has some brown liquid effluent. He states he is feel well, but realized he is feeling dehydrated and started to drink more fluids this afternoon. He is tolerating a regular diet, yet does not have an appetite. He is eager to have his pantoja catheter removed tomorrow. His mid-line incisional dressing is intact as well as his NOEMÍ drain which is draining serosanguinous drainage. I reviewed with Victor M and his father the crusting technique, hernia prevention and how to remove and apply an appliance. Victor M practiced on the stoma model again this afternoon. We discussed the need for a convex appliance and pros and cons of various variation of ostomy appliances. We discussed Home Health RN and he and his father feel that he does not need a home health nurse. Victor M feels very confident in preforming his osotmy care and his father stated that they can handle his care. I understand that Victor M will most likely be discharged this weekend. I am not sure if I will be able to come back this weekend to see him, but I will follow up with him at [facility] office next week at his post-op appointment. I have supplies for discharge at his bedside. I will be sending in sample request for sample products this afternoon and will follow up with this at his outpatient appointment.
[2020-02-28 17:27] LABS: Appearance Urine UA CLEAR; Bilirubin Urine UA NEGATIVE (NEGATIVE); Color Urine UA YELLOW; Glucose Urine UA NEGATIVE (Negative); Ketones Urine UA NEGATIVE (NEGATIVE); Leukocyte Esterase Urine UA NEGATIVE (NEGATIVE); Nitrite Urine UA NEGATIVE (Negative); Occult Blood Urine UA 3+ (Negative); Protein Urine UA NEGATIVE (Negative); Specific Gravity Urine UA <=1.005 (1.000-1.035); Urobilinogen Urine UA 0.2 E.U./dL (0.2); pH Urine UA 6.5 (4.5-8.0)
[2020-02-28 17:28] LABS: Bacteria Urine None Seen
[2020-02-28 18:06] LABS: Culture Indicated Urine Cult Not Indicated; RBC Urine 1-5/HPF (0-5/HPF); Squamous Epithelial Cell Urine 0-1 /HPF (0-5/HPF); WBC Urine 0-1/HPF (0-5/HPF)
[2020-02-29] VITALS (7 sets, daily range): BP systolic 123–144; BP diastolic 82–87; PULSE 76–87; RESP 15–18; TEMP 36.3–37.1; O2SAT 98–99
[2020-02-29] MEDS: ACETAMINOPHEN 325 MG TABLET 650 MG PO ×2 (00:34→06:01)
[2020-02-29] MEDS: OXYCODONE IR 5 MG TABLET PO ×2 (06:04→13:49)
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
--- NOTE | 2020-02-29 12:20 | PC.NURSE ---
Am shift Pt is feeling great, ready to get out of here! Upbeat, participating in his own care. Comfortable with ostomy care. Dr Castro into see Pt and removed NOEMÍ drain. Follow up appt reviewed with Pt, next week in office with Olive Dixon as well. Oxycodone has been effective for pain every 6 hours or so. Using APAP as well Kent removed, per order. Await Pt next void, after which Pt will d/c home. Ostomy supplies from room left for patient, packed up for home use.
--- NOTE | 2020-02-29 12:25 | CM.DPC ---
DCP: continued: Dr. Castro was here earlier today and has ok'd pt for d/c home. manager corporate responsibilityWILLIAM Chou' note is reviewed and plan for followup in clinic and no need for HH RN is noted. Met now with pt. He is up, dressed and waiting for his father to pick him up. WILLIAM Ordaz in process of preparing the d/c paperwork. Pt says he was surprised to be released today but is ready to go. He did say that WILLIAM Charles was going to provide her card/contact info to him at d/c but had not done so yet. Have a call now into [facility]: [phone] to see if she is agreeable to this/she has just called back and fine to give card. She will see pt in clinic Monday afternoon. Will update pt and WILLIAM Ordaz.
[2020-02-29] MEDS: levoFLOXacin 250 MG TABLET 750 MG PO (13:08)
== END 2020-02-29 14:26 | disposition home or self-care (01) | DRG 221 ==
PROVIDERS: Surgery; Admitting Provider Surgery; PCP Nurse Practitioner Family; Referring Provider Nurse Practitioner Family; Visit Provider Specialist
PROC: 0WHR8YZ Insertion of Other Device into Genitourinary Tract, Via Natural or Artificial Opening Endoscopic (ICD-10-PCS; principal; 2020-02-25 07:45)
PROC: 0DTE0ZZ Resection of Large Intestine, Open Approach (ICD-10-PCS; 2020-02-25 07:45)
DX: K57.32 Diverticulitis of large intestine without perforation or abscess without bleeding (principal); Z11.59 Encounter for screening for other viral diseases
CPT/HCPCS: 36415; 44206; 52332; 80048; 81003; 81015; 82962; 83735; 84100; 85025; 87635; 97161; 99211; C9290; J0131; J1100; J1170; J1650; J2060; J2250; J2405; J2543; J2704; J3010; Q9968

== ENCOUNTER → 2020-06-13 08:46 | Outpatient (CLI) | payer OTHER, MEDICAID, SELFPAY ==
[2020-03-04 15:22] VITALS: BMI 28.1
--- NOTE | 2020-06-13 08:48 | DI.MRI.S_ITS ---
PROCEDURE: MR CERVICAL SPINE WO CON INDICATIONS: progressive RUE numbness TECHNIQUE: Noncontrast sagittal T1 spin echo and T2 fast spin echo, sagittal STIR, foraminal oblique sagittal T2 fast spin echo, and axial gradient echo or T2 fast spin echo through the cervical spine. COMPARISON: [facility], CT, CT CERVICAL SPINE WO CON, 11/10/2019, 0:24. FINDINGS: Image quality: Excellent. Alignment and Curvature: There is normal bony alignment. Bone Marrow: Marrow demonstrates normal overall signal. Spinal Cord: Visualized spinal cord has normal size and signal. No cerebellar tonsillar herniation. Paraspinous Soft Tissues: No paravertebral masses. Prevertebral soft tissues are normal in thickness. C2-C3: Normal appearance. C3-C4: Normal appearance. C4-C5: Normal appearance. C5-C6: Slight loss of disc signal. Mild, diffuse disc bulge. No central stenosis. Moderate right and mild left facet hypertrophy. Mild right uncovertebral joint hypertrophy. Severe right neural foraminal narrowing with compression of the exiting right C6 nerve root. C6-C7: Slight loss of disc signal. Mild, diffuse disc bulge. No central stenosis. No neural foraminal narrowing. No neural compression. C7-T1: Normal appearance. IMPRESSION: 1. Mild C5-C6 and C6-C7 degenerative disc disease. 2. C5-C6 facet and uncovertebral arthropathy. 3. No central stenosis. 4. Severe right C5-C6 neural foraminal narrowing with compression of the exiting right C6 nerve root. Dictated by: Sindy Delgadillo MD, PhD on 06/15/2020 at 8:30 Approved by: Sindy Delgadillo MD, PhD on 06/15/2020 at 8:35
== END ==
PROVIDERS: PCP Nurse Practitioner Family; Referring Provider Nurse Practitioner Family; Visit Provider Nurse Practitioner Family
DX: R20.2 Paresthesia of skin (principal); R20.0 Anesthesia of skin; M50.322 Other cervical disc degeneration at C5-C6 level; M48.02 Spinal stenosis, cervical region; Z87.81 Personal history of (healed) traumatic fracture
CPT/HCPCS: 72141

== ENCOUNTER → 2020-07-21 09:11 | Outpatient (CLI) | payer OTHER, MEDICAID, SELFPAY ==
[2020-03-04 15:22] VITALS: BMI 28.1
[2020-07-21 10:27] LABS: COVID19 -Nasal RAPID Negative (Negative)
== END ==
PROVIDERS: PCP Nurse Practitioner Family; Visit Provider Surgery
DX: Z20.822 Contact with and (suspected) exposure to COVID-19 (principal); Z01.812 Encounter for preprocedural laboratory examination
CPT/HCPCS: 87635; C9803

== ENCOUNTER 2020-07-22 10:29 | Inpatient (IN) | payer OTHER, MEDICAID, SELFPAY ==
[2020-03-04 15:22] VITALS: BMI 28.1
[2020-07-17 13:41] VITALS: BMI 28.2
[2020-07-22] VITALS (18 sets, daily range): BP systolic 124–154; BP diastolic 74–87; PULSE 74–90; RESP 8–20; TEMP 36.5–37.3; O2SAT 95–99; BMI 27.7
--- NOTE | 2020-07-22 | PATH_ITS ---
[facility] Accession Number: [id number] . 01 Material submitted: . PART A: rectum - RECTUM PART B: anastomosis - ANASTAMOTIC DONUTS . 02 Diagnosis: A. Rectum, Segmental Resection: Rectal mucosa with patchy erosion at both resection ends with ischemia-type changes. Patchy submucosal foci of chronic inflammation and foreign body giant cell reaction at one resection end, consistent with history of prior procedure. Serosal fibrous adhesions. Negative for dysplasia or malignancy. . B. Anastomotic Donuts: Colonic tissue consistent with anastomotic donut. Negative for dysplasia and malignancy. MRV 07/28/2020 1446 Local . 02 Electronically signed: . Yoko Davalos MD, Pathologist NPI- [id number] . 01 Gross description: . A. Received in formalin, labeled rectum and consists of a 3.0 cm in length by 3.2 cm in diameter portion of rectum with two open ends (one open end has multiple undesignated blue and black sutures). There is a moderate amount of attached adipose tissue. Opening reveals a deshpande-pink mucosa with normal mucosal folds. The wall thickness measures 0.6 cm. No lymph nodes are identified within the attached adipose tissue. Plug Making Operator sections are submitted. . A1: margin (inked blue), sales utility representative perpendicular section. A2: opposing end with undesignated sutures (black), sales utility representative perpendicular section. A3: sales utility representative cross section. . B. Received in formalin, labeled anastomotic donuts and consists of two irregular deshpande-pink, focally hemorrhagic mucosal tissue fragments measuring 1.5 x 1.5 x 1.2 cm and 3.5 x 1.5 x 0.8 cm. Plug Making Operator sections of each fragment are submitted in cassettes B1-B2. ([id number]) /MRV 07/23/[address] [place] [address] . 02 Pathologist provided ICD-10: Z93.3 . 02 CPT . 409674, [id number] Performed at: 01 [facility] [address] [id number] MD Rolf York MD Phone: [phone] Performed at: [id number] [place], [place] [id number] MD Yoko Davalos MD Phone: [phone]
[2020-07-22] MEDS: LACTATED RINGERS 1,000 ML 100 ML IV ×3 (10:40→18:05)
--- NOTE | 2020-07-22 11:37 | PM.PREOP ---
Pre-operative Note Interval Note History & Physical reviewed/Exam performed by Physician: Yes Changes to H&P: No
[2020-07-22] MEDS: PIPERACILLIN-TAZO 4.5 GM/100 ML FROZ.PIGGY IV (12:00)
--- NOTE | 2020-07-22 12:52 | P.PCN_ITS ---
Regional Block Pre-procedure Procedure: Continuous Epidural for Post-operative Pain Management PMH/ROS narrative: 35y/o male with colovesicle fistula s/p partial colectomy 02/2020 in for colostomy reversal. PMH significant for anxiety/depression, though currently on no medication. PSH/Anesthesia history narrative: Partial colectomy, GA with no adverse anesthetic reaction Exam narrative: WNWD, NAD Lungs CTA Bilat Heart RRR, no murmur noted ASA Class: I Medications: Current Medications Generic Name Dose Route Start Last Admin Trade Name Freq PRN Reason Stop Dose Admin Hydromorphone HCl 0 mg 07/22/20 12:50 Hydromorphone 2 Mg Inj IV Q5M PRN Pain, Moderate (4-6) Hydroxyzine HCl 25 mg 07/22/20 12:50 Hydroxyzine 50 Mg/Ml Inj IM NOW PRN Pain, Mild (1-3) Lactated Ringer's 1,000 mls @ 100 mls/hr 07/22/20 10:30 07/22/20 10:40 Lactated Ringers IV 100 mls/hr CONT MALA Administration Bupivacaine HCl 25 ml/ Sodium 100 mls @ 6 mls/hr 07/22/20 12:30 Chloride EPIDURAL CONT MALA Acetaminophen 1,000 mg in 100 mls @ 400 mls/hr 07/22/20 12:50 Ofirmev IV 07/22/20 13:04 NOW ONE Meperidine HCl 12.5 mg 07/22/20 12:50 Meperidine 50 Mg/Ml Inj IV PACUNOW PRN Mild pain or shivering Ondansetron HCl 4 mg 07/22/20 12:50 Ondansetron 4 Mg/2 Ml Inj IV NOW PRN Nausea And Vomiting Allergies: Allergies Allergy/AdvReac Type Severity Reaction Status Date / Time No Known Drug Allergies Allergy Verified 07/01/20 09:12 Procedure Insertion date: 07/22/20 Insertion time: 12:00 Prep/Local: betadine x3 Interspace: T10-11 Patient position: sitting Needle: 18 gauge Eugene Loss of resistance with: saline TJ at (cm): 5 Catheter placed at SKIN (cm): 10 Catheter in SPACE (cm): 5 Insertion: No CSF, No Blood, No Paresthesia with insertion, No Paresthesia with injection and No Test dose reaction Initial Medications TEST DOSE time: 11:55 TEST DOSE: 1.5% lidocaine with epinephrine 1:200k (mL): 3 BOLUS DOSE time: 12:38 BOLUS DOSE (mL): 5 BOLUS DOSE med: other (lidocaine 1%) Infusion INFUSION: 0.125% bupivacaine and with fentanyl 2 mcg/mL Initial rate (mL/hr): 6 Post-procedure Anesthesia time START: 11:45 Anesthesia time END: 12:00 Post-procedure Anesthesia Assessment: Yes CV function: HR/BP stable, Yes Resp function: RR/sat/airway adequate, Yes Mental status appropriate and No Ane sthesia complications
--- NOTE | 2020-07-22 13:04 | SUR.OPER ---
Lithotomy on padded OR bed, head on pillow, arms secured on padded arm boards at <90 degrees abduction. Legs secured in padded yellow fins stirrups.
[2020-07-22] MEDS: PIPERACILLIN-TAZO 3.375 GM/50 ML FROZ.PIGGY IV ×2 (15:30→22:34)
[2020-07-22] MEDS: hydrOXYzine 50 MG/ML INJ 25 MG IM (16:47)
[2020-07-22] MEDS: OXYCODONE IR 5 MG TABLET PO (17:18)
[2020-07-22] MEDS: ACETAMINOPHEN 325 MG TABLET 650 MG PO (18:09)
[2020-07-22] MEDS: FENT 2MCG/ML BUPIV 0.125% EPI 200 MCG/100 ML PLAST..BAG 6 MCG EPIDURAL (19:53)
[2020-07-22] MEDS: HYDROMORPHONE 0.5 MG INJ IV (20:01)
--- NOTE | 2020-07-22 21:09 | PM.OP.1 ---
Operative Date/Time/Diagnoses Date of procedure: 07/22/20 Time of procedure: 21:10 Pre-op diagnosis: Colostomy Post-op diagnosis: same Procedure & Clinicians Procedure: Colostomy reversal Same procedure as scheduled: Yes Indications: 35-year-old male history of complicated diverticulitis with a colovesicular fistula underwent a Rk's procedure 6 months ago. He is here today for reversal Surgeon: Mitch Castro Pattern Assembler: Cody Lee Anesthesia Type: General Operative Notes Findings: Dense pelvic adhesions. Bubbles from the anterior colorectal anastomosis which were oversewn with silk suture final leak test is negative Specimen(s): other (Rectum) Estimated Blood Loss (mL): 50 Procedure in detail: Patient was brought to the operating room and placed on the table. He was intubated with an endotracheal tube. Kent catheter was sterilely placed. He was placed into lithotomy and appropriately padded. He received Zosyn prior to skin incision. He was prepped and draped in sterile fashion. Time-out was performed. A lower midline incision was made. The fascia was elevated and sharply incised with a knife. The abdomen was entered atraumatically. There were dense adhesions within the pelvis. The adhesions were carefully taken down with sharp dissection. Ultimately the rectal stump was identified deep within the pelvis. The rectal stump was freed from its adhesions until it was mobile down to the level of the peritoneal reflection. The distal aspect of the stump was mildly fibrotic using the TA stapler it was resected back to healthy pliable tissue. Leak test was performed and the staple line was negative for leak. Next the colostomy was taken down. A circular incision around the colostomy was made and then the colostomy was freed from the adhesions on the anterior abdominal wall. The colostomy was then freed from the inside of the abdomen by taking down the adhesions until it was able to reduce into the abdomen. The splenic flexure had been previously mobilized and the descending colon was sufficiently mobile that it reached to the pelvis without tension. The colostomy was trimmed back and then a Prolene suture was used in a pursestring fashion to secure a 29 mm anvil within it. The stapler was then advanced into the rectum its point deployed under direct visualization and the anvil and stapler were mated under direct visualization. And a end-to-end anastomosis was then formed. A leak test was performed and there was a small amount of bubbling from the anterior surface of the anastomosis. The leak was identified and was oversewn with silk suture. Leak test was then reperformed and at this point there was no evidence of leak. The anastomosis was widely patent well perfused and without tension. The abdomen was then irrigated with several L of sterile saline. The drain 19 [place] Eamon placed through the left side of the abdominal wall was brought into the pelvis near the anastomosis. The fascia at the colostomy site was closed with with 1. PDS suture. The midline fascia was then closed with 1. PDS from above and below. Ethibond suture was used in interrupted fashion to reinforce the midline fascial closure. The skin was then closed with radha along the midline a Betadine-soaked iodoform strip gauze was placed into the colostomy site and then interrupted nylon suture was used to loosely reapproximate the colostomy closure site. Patient emerged from anesthesia was extubated transferred to the recovery room in stable condition. Complications: none Post-operative Condition: stable Disposition: ICU
--- NOTE | 2020-07-22 21:26 | PC.NURSE ---
17:35 Pt received from PACU with epidural in progress. Abd dressing to midline incision dry and intact. Eamon drain with serosangenous drainage, pantoja cath with jorge l urine. Dermatome leve at T10 bilaterally, c/o breakthrough pain 4/10. Received Oxycodone in PACU prior to arrival IV of LR started as ordered.
--- NOTE | 2020-07-22 21:52 | PC.NURSE ---
Abdominal dressing reinforced with abd - moderate amout of brown drainage noted on existing dressing.
[2020-07-22] MEDS: FAMOTIDINE 20 MG TABLET PO (23:12)
[2020-07-23] VITALS (10 sets, daily range): BP systolic 120–151; BP diastolic 77–89; PULSE 59–71; RESP 16–18; TEMP 36.7–37.4; O2SAT 95–99
[2020-07-23] MEDS: ACETAMINOPHEN 325 MG TABLET 650 MG PO ×5 (00:59→23:52)
[2020-07-23] MEDS: HYDROMORPHONE 0.5 MG INJ IV ×3 (02:18→20:54)
[2020-07-23] MEDS: FENT 2MCG/ML BUPIV 0.125% EPI 200 MCG/100 ML PLAST..BAG 6 MCG EPIDURAL (02:19)
[2020-07-23] MEDS: PIPERACILLIN-TAZO 3.375 GM/50 ML FROZ.PIGGY IV ×4 (04:13→21:35)
[2020-07-23] MEDS: LACTATED RINGERS 1,000 ML 100 ML IV (04:16)
[2020-07-23 04:55] LABS: Hematocrit 41.8 % (41-53); Hemoglobin 14.1 g/dL (13.5-17.5); Mean Corpuscular HGB Conc 33.7 % (30-36); Mean Corpuscular Hemoglobin 29.3 PG (26-34); Mean Corpuscular Volume 87.2 fL (80-100); Platelet Count 205 X10^3/uL (150-400); Red Blood Cell Count 4.79 X10^6/uL (4.5-5.9); Red Cell Distribution Width 15.1 % (11.6-14.8); White Blood Cell Count 17.8 X10^3/uL (4.5-11.0)
[2020-07-23 04:56] LABS: Add Manual Diff / Slide Review YES
[2020-07-23 05:17] LABS: BUN Creatinine Ratio 13.3 (6-22); Blood Urea Nitrogen 13 mg/dL (9-20); Calcium 9.1 mg/dL (8.4-10.2); Carbon Dioxide 29 mmol/L (22-32); Chloride 102 mmol/L (98-107); Estimated Glomerular Filt Rate > 60.0 mL/min (>60); Glucose 126 mg/dL (70-100); HEMOLYSIS < 15 (0-50); Magnesium 1.9 mg/dL (1.6-2.3); Potassium 4.1 mmol/L (3.4-5.1); Sodium 136 mmol/L (137-145)
[2020-07-23 05:29] LABS: Total Cells Counted 100
[2020-07-23 05:33] LABS: Anisocytosis 1+; Neutrophils Absolute Manual 16198 /uL (3000-5900)
[2020-07-23] MEDS: FAMOTIDINE 20 MG TABLET PO (08:49)
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
[2020-07-23] MEDS: OXYCODONE IR 5 MG TABLET PO (10:53)
[2020-07-23] MEDS: ONDANSETRON 4 MG/2 ML INJ IV ×2 (11:27→20:54)
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
--- NOTE | 2020-07-23 14:04 | PC.NURSE ---
Addendum entered by Sushma Randall R.N. 07/23/20 15:16: Pt requesting sleep afteroxycodone. resting comfortably at present. Addendum entered by Sushma Randall R.N. 07/23/20 14:48: Clear liq diet continued, Pt is not very hungry at lunch time, ate late breakfast. Denies nausea at present. BT remain hypoactive. Anesthesia into see Pt, epidural remains effective Dermatome t10 level. Can ambulate well with SBA. No flatus this shift. Original Note: Am shift Pt is A/o x4, c/o pain with movement, Epidural is infusing at 6mls/hr with on demand dosing q15min. Rates pain 5/10 with activity. Gait steady, .PT d/c from services. Enc ambulation with staff. Anesthesia up to see Pt but Pt is quite sleepy after pain control. Scheduled APAP given per Emar. no flatus this shift. Hypoactive BT
[2020-07-23] MEDS: SODIUM CHLORIDE 0.9% 1,000 ML 50 ML IV (17:27)
--- NOTE | 2020-07-23 22:08 | PC.NURSE ---
Shift note: Epidural removed and pantoja removed @ 1720. Epidural cath removed intact. Pain managed with Dilaudid 0.5mg, given 2x this shift with good result. Diet changed to NPO with sips of clears only. IV fluid changed to NS @ 50ml/hr. Abdominal dressing dry at midline and some brown shadow drainage noted over colostomy site where iodoform packing located. Eamon drain cont with large amount of drainage, changed from serosangenous to serous, >500ml this shift. Voided 80ml dark jorge l urine.
[2020-07-24] VITALS (10 sets, daily range): BP systolic 131–155; BP diastolic 80–95; PULSE 58–84; RESP 16–18; TEMP 36.7–37.6; O2SAT 97–100
[2020-07-24] MEDS: HYDROMORPHONE 0.5 MG INJ IV (02:58)
[2020-07-24] MEDS: PIPERACILLIN-TAZO 3.375 GM/50 ML FROZ.PIGGY IV ×3 (03:59→16:33)
[2020-07-24 05:40] LABS: Add Manual Diff / Slide Review NO; Basophils Absolute Auto 100 /uL (0-100); Basophils Percent Auto 0.6 % (0-2); Eosinophils Absolute Auto 100 /uL (0-450); Eosinophils Percent Auto 0.4 % (2-4); Hematocrit 43.7 % (41-53); Hemoglobin 14.5 g/dL (13.5-17.5); Lymphocytes Absolute Auto 2300 /uL (1100-4500); Lymphocytes Percent Auto 14.3 % (25-40); Mean Corpuscular HGB Conc 33.2 % (30-36); Mean Corpuscular Volume 87.3 fL (80-100); Monocytes Absolute Auto 1800 /uL (0-900); Neutrophils Absolute Auto 11800 /uL (1500-7000); Neutrophils Percent Auto 73.7 % (50-75); Platelet Count 216 X10^3/uL (150-400); Red Blood Cell Count 5.01 X10^6/uL (4.5-5.9); Red Cell Distribution Width 14.8 % (11.6-14.8)
[2020-07-24 05:44] LABS: Blood Urea Nitrogen 14 mg/dL (9-20); Calcium 8.8 mg/dL (8.4-10.2); Carbon Dioxide 27 mmol/L (22-32); Chloride 102 mmol/L (98-107); Estimated Glomerular Filt Rate > 60.0 mL/min (>60); Glucose 115 mg/dL (70-100); HEMOLYSIS < 15 (0-50); Magnesium 2.1 mg/dL (1.6-2.3); Phosphorous 2.5 mg/dL (2.5-4.5); Potassium 3.7 mmol/L (3.4-5.1); Sodium 137 mmol/L (137-145)
[2020-07-24] MEDS: ACETAMINOPHEN 325 MG TABLET 650 MG PO ×4 (06:13→23:24)
[2020-07-24] MEDS: FAMOTIDINE 20 MG TABLET PO (08:57)
[2020-07-24] MEDS: ENOXAPARIN 40 MG/0.4 ML SYRINGE SUBCUT (08:58)
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
[2020-07-24] MEDS: ONDANSETRON 4 MG/2 ML INJ IV ×2 (09:03→18:26)
[2020-07-24] MEDS: OXYCODONE IR 5 MG TABLET PO (11:24)
[2020-07-24] MEDS: SODIUM CHLORIDE 0.9% 1,000 ML 50 ML IV (14:44)
--- NOTE | 2020-07-24 18:33 | DI.RAD.S_ITS ---
PROCEDURE: XR ACUTE ABDOMEN SERIES INDICATIONS: post op N/V assess bowel gas pattern TECHNIQUE: One view chest and two views of the abdomen were acquired. COMPARISON: None. FINDINGS: Surgical changes and devices: None. Chest: Lungs are clear. Heart size is normal. No pleural effusions. No pneumoperitoneum. Abdomen: Moderately distended small bowel loops with air-fluid levels. No suspicious calcifications. Visualized solid organ contours appear normal. Bones: No suspicious bony lesions. IMPRESSION: Small-bowel obstruction. Dictated by: Sawyer Quezada M.D. on 07/24/2020 at 19:41 Approved by: Sawyer Quezada M.D. on 07/24/2020 at 19:41
[2020-07-24] MEDS: DEXTROSE 5%-LACTATED RINGERS 1,000 ML 125 ML IV (18:47)
[2020-07-24] MEDS: FAMOTIDINE 200 MG IV (19:00)
[2020-07-24] MEDS: PROCHLORPERAZINE 10 MG/2 ML VIAL IV (19:01)
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
[2020-07-24] MEDS: SODIUM CHLORIDE 0.9% 250 ML 21 ML IV (19:20)
[2020-07-25] VITALS (12 sets, daily range): BP systolic 124–156; BP diastolic 71–90; PULSE 76–85; RESP 16–18; TEMP 36.4–37.2; O2SAT 96–99
[2020-07-25] MEDS: PIPERACILLIN-TAZO 3.375 GM/50 ML FROZ.PIGGY IV ×3 (00:10→16:59)
[2020-07-25] MEDS: PROCHLORPERAZINE 10 MG/2 ML VIAL IV (01:45)
[2020-07-25] MEDS: ONDANSETRON 4 MG/2 ML INJ IV (04:46)
[2020-07-25 05:05] LABS: Add Manual Diff / Slide Review NO; Basophils Absolute Auto 100 /uL (0-100); Basophils Percent Auto 0.7 % (0-2); Eosinophils Absolute Auto 200 /uL (0-450); Eosinophils Percent Auto 1.5 % (2-4); Hematocrit 42.8 % (41-53); Hemoglobin 14.4 g/dL (13.5-17.5); Lymphocytes Absolute Auto 1900 /uL (1100-4500); Lymphocytes Percent Auto 12.9 % (25-40); Mean Corpuscular HGB Conc 33.6 % (30-36); Mean Corpuscular Hemoglobin 29.4 PG (26-34); Mean Corpuscular Volume 87.6 fL (80-100); Monocytes Absolute Auto 1500 /uL (0-900); Monocytes Percent Auto 10.2 % (3-14); Neutrophils Absolute Auto 11000 /uL (1500-7000); Neutrophils Percent Auto 74.7 % (50-75); Platelet Count 215 X10^3/uL (150-400); Red Blood Cell Count 4.89 X10^6/uL (4.5-5.9); Red Cell Distribution Width 14.9 % (11.6-14.8); White Blood Cell Count 14.7 X10^3/uL (4.5-11.0)
[2020-07-25 05:11] LABS: Alanine Aminotransferase 16 IU/L (<50); Albumin 3.4 g/dL (3.5-5.0); Albumin Globulin Ratio 1.2 (1.0-2.8); Alkaline Phosphatase 53 U/L (38-126); Aspartate Aminotransferase 20 IU/L (17-59); BUN Creatinine Ratio 15.2 (6-22); Bilirubin Total 0.7 mg/dL (0.2-1.3); Blood Urea Nitrogen 14 mg/dL (9-20); Calcium 8.8 mg/dL (8.4-10.2); Carbon Dioxide 28 mmol/L (22-32); Chloride 103 mmol/L (98-107); Estimated Glomerular Filt Rate > 60.0 mL/min (>60); Globulin 2.8 g/dL (1.7-4.1); Glucose 125 mg/dL (70-100); HEMOLYSIS 16 (0-50); Phosphorous 2.9 mg/dL (2.5-4.5); Potassium 3.8 mmol/L (3.4-5.1); Sodium 136 mmol/L (137-145); Total Protein 6.2 g/dL (6.3-8.2)
[2020-07-25] MEDS: ACETAMINOPHEN 325 MG TABLET 650 MG PO ×4 (06:24→23:52)
[2020-07-25] MEDS: KETOROLAC 30 MG/ML VIAL IV (06:35)
[2020-07-25] MEDS: DEXTROSE 5%-LACTATED RINGERS 1,000 ML 125 ML IV (06:36)
[2020-07-25] MEDS: SODIUM CHLORIDE 0.9% FLUSH 10 ML IV ×2 (08:58→20:33)
[2020-07-25] MEDS: ENOXAPARIN 40 MG/0.4 ML SYRINGE SUBCUT (08:59)
[2020-07-25 10:15] LABS: Creatinine Body Fluid 0.95 mg/dL
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
[2020-07-25] MEDS: FAMOTIDINE 20 MG/50 ML PIGGYBACK 200 MG IV ×2 (13:24→22:20)
[2020-07-25] MEDS: DOCUSATE 100 MG CAPSULE PO (20:33)
[2020-07-26] VITALS (9 sets, daily range): BP systolic 129–143; BP diastolic 72–84; PULSE 66–77; RESP 15–18; TEMP 36.4–36.8; O2SAT 96–98
[2020-07-26] MEDS: PIPERACILLIN-TAZO 3.375 GM/50 ML FROZ.PIGGY IV ×3 (00:52→16:38)
[2020-07-26] MEDS: KETOROLAC 30 MG/ML VIAL IV (04:46)
--- NOTE | 2020-07-26 04:57 | PC.NURSE ---
0445- Patient requesting pain medication for c/o pain 06/27. Medicated per order. 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 He stated he did not want to bother staff to do it for him. Patient advised to call for assist. Patient states he only did this one time. Will monitor.
[2020-07-26 05:35] LABS: Add Manual Diff / Slide Review NO; Basophils Absolute Auto 0 /uL (0-100); Basophils Percent Auto 0.4 % (0-2); Eosinophils Absolute Auto 500 /uL (0-450); Eosinophils Percent Auto 4.4 % (2-4); Hematocrit 39.5 % (41-53); Hemoglobin 13.2 g/dL (13.5-17.5); Lymphocytes Absolute Auto 2200 /uL (1100-4500); Lymphocytes Percent Auto 18.8 % (25-40); Mean Corpuscular HGB Conc 33.3 % (30-36); Mean Corpuscular Hemoglobin 29.1 PG (26-34); Mean Corpuscular Volume 87.5 fL (80-100); Monocytes Absolute Auto 1100 /uL (0-900); Monocytes Percent Auto 9.3 % (3-14); Neutrophils Absolute Auto 7800 /uL (1500-7000); Neutrophils Percent Auto 67.1 % (50-75); Platelet Count 225 X10^3/uL (150-400); Red Blood Cell Count 4.52 X10^6/uL (4.5-5.9); Red Cell Distribution Width 14.9 % (11.6-14.8); White Blood Cell Count 11.5 X10^3/uL (4.5-11.0)
[2020-07-26 05:39] LABS: BUN Creatinine Ratio 15.8 (6-22); Blood Urea Nitrogen 15 mg/dL (9-20); Calcium 8.8 mg/dL (8.4-10.2); Carbon Dioxide 28 mmol/L (22-32); Chloride 105 mmol/L (98-107); Estimated Glomerular Filt Rate > 60.0 mL/min (>60); Glucose 97 mg/dL (70-100); HEMOLYSIS < 15 (0-50); Potassium 3.4 mmol/L (3.4-5.1); Sodium 139 mmol/L (137-145)
[2020-07-26] MEDS: ACETAMINOPHEN 325 MG TABLET 650 MG PO ×4 (05:55→23:42)
[2020-07-26] MEDS: ENOXAPARIN 40 MG/0.4 ML SYRINGE SUBCUT (08:19)
[2020-07-26] MEDS: FAMOTIDINE 20 MG/50 ML PIGGYBACK 200 MG IV ×2 (08:19→22:03)
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
[2020-07-26] MEDS: OXYCODONE IR 5 MG TABLET PO ×2 (12:00→17:57)
--- NOTE | 2020-07-26 12:53 | PC.NURSE ---
Day Shift Note Allowed pt to sleep this morning, even, nonlabored respirations, appeared comfortable. Awoke at 1100 and ate some of his full liquid breakfast and is now eating low residue diet for lunch. Instructed to take in food slowly, pt acknowledged understanding. Incision to abdomen well approximated, radha in place. Eamon drain present and draining serosanguinous fluid. Pain 3/10 to abdomen, medicated with oxycodone and tylenol. Denies nausea. Independent in room. Call light within reach.
[2020-07-26] MEDS: SODIUM CHLORIDE 0.9% FLUSH 10 ML IV (22:02)
[2020-07-27] MEDS: PIPERACILLIN-TAZO 3.375 GM/50 ML FROZ.PIGGY IV ×2 (00:37→08:19)
[2020-07-27 00:40] VITALS: O2SAT 97
--- NOTE | 2020-07-27 01:37 | PC.NURSE ---
patient is alert and oriented. Breath sounds CTA with RA sat of 97%. HRR. Denies nausea. BT present and abdomen is soft. Incision is LALO with intact radha, well approximated and without redness/drainage. NOEMÍ site dressing is intact; NOEMÍ is intact and compressed with small amount serous drainage noted. Gauze wet-to-dry dressing is CDI to old stoma site. Had coffee ground looking loose stool this shift. Denies dysuria, frequency or urgency with urination. Independent with mobility. States pain is only 1-2/10 and declines pain medication except is taking scheduled Tylenol. Not wearing SCD's as is up independently so reminded of importance of ankle waving to help prevent DVT. Fall risk score is low.
[2020-07-27 01:51] VITALS: BP 121/81; PULSE 97; RESP 16; TEMP 36.2; O2SAT 97
[2020-07-27 04:56] LABS: Add Manual Diff / Slide Review NO; Basophils Absolute Auto 100 /uL (0-100); Basophils Percent Auto 0.5 % (0-2); Eosinophils Absolute Auto 500 /uL (0-450); Eosinophils Percent Auto 4.4 % (2-4); Hematocrit 38.3 % (41-53); Hemoglobin 12.9 g/dL (13.5-17.5); Lymphocytes Absolute Auto 2400 /uL (1100-4500); Lymphocytes Percent Auto 20.6 % (25-40); Mean Corpuscular HGB Conc 33.6 % (30-36); Mean Corpuscular Hemoglobin 29.5 PG (26-34); Mean Corpuscular Volume 87.6 fL (80-100); Monocytes Absolute Auto 1100 /uL (0-900); Monocytes Percent Auto 9.4 % (3-14); Neutrophils Absolute Auto 7700 /uL (1500-7000); Neutrophils Percent Auto 65.1 % (50-75); Platelet Count 246 X10^3/uL (150-400); Red Blood Cell Count 4.37 X10^6/uL (4.5-5.9); Red Cell Distribution Width 14.8 % (11.6-14.8); White Blood Cell Count 11.8 X10^3/uL (4.5-11.0)
[2020-07-27 05:06] LABS: BUN Creatinine Ratio 15.8 (6-22); Blood Urea Nitrogen 16 mg/dL (9-20); Calcium 8.8 mg/dL (8.4-10.2); Carbon Dioxide 27 mmol/L (22-32); Chloride 105 mmol/L (98-107); Estimated Glomerular Filt Rate > 60.0 mL/min (>60); Glucose 112 mg/dL (70-100); HEMOLYSIS 21 (0-50); Magnesium 2.1 mg/dL (1.6-2.3); Potassium 3.3 mmol/L (3.4-5.1); Sodium 137 mmol/L (137-145)
[2020-07-27] MEDS: ACETAMINOPHEN 325 MG TABLET 650 MG PO ×2 (05:55→11:48)
[2020-07-27] MEDS: OXYCODONE IR 5 MG TABLET PO ×2 (05:59→11:49)
[2020-07-27 06:01] VITALS: O2SAT 99
[2020-07-27 06:10] VITALS: BP 119/73; PULSE 71; RESP 16; TEMP 36.7; O2SAT 99
[2020-07-27] MEDS: ENOXAPARIN 40 MG/0.4 ML SYRINGE SUBCUT (08:23)
[2020-07-27] MEDS: SODIUM CHLORIDE 0.9% FLUSH 10 ML IV (08:24)
[2020-07-27] MEDS: DOCUSATE 100 MG CAPSULE PO (08:24)
[2020-07-27 08:35] VITALS: BP 134/74; PULSE 69; RESP 20; TEMP 36.6; O2SAT 97
[2020-07-27 09:00] VITALS: O2SAT 97
--- NOTE | 2020-07-27 11:05 | PC.NURSE ---
Addendum entered by Deandra Bronson R.N. 07/27/20 14:33: Pt discharged without incident to private vehicle. IV removed prior to discharge. Pt given paper prescriptions for pain medications. Discharge teaching on wound care, follow-up, worsening symptoms and stroke info. Original Note: Dayshift Note: Pt is A and O x3. ZHANG. Denies pain. Neuro intact. Pt with jesus drain removed at bedside by Dr. Meyer. Wound closure done at bedside by Dr. Meyer as well. Drain site and former ostomy wound covered with gauze and tape per MD order, wound care instructions done by Dr. Meyer as this time. Lungs CTA, pt on RA, denies SOB. SPO2 97%. Pt with recent re-anastamosis of former colostomy. Pt with liquid green stool. Good appetite, denies nausea. Dr. Meyer gave diet instructions at bedside this am. Instructed pt to eat a regular diet, but avoid large amounts of fibrous and difficult to digest foods such as kale. Call light in reach, pt is independent with mobility. Discharge orders received. Pt to discharge this shift.
[2020-07-27] MEDS: POTASSIUM CHLORIDE 20 MEQ TAB 40 MEQ PO (11:48)
--- NOTE | 2020-07-27 14:23 | CM.DPC ---
DCP Discharge Home Per Surgeon, pt has medically progressed for safe d/c home today and completed wound care teaching and instruction bedside with outpt follow up after d/c and no identified barriers to discharge. Per RN, pt has continued to ambulate, tolerate his advancing diet and pain controlled and minimal drainage and completing discharge instructions for plan of home this afternoon with no concerns. Plan: Patient to d/c home today via POV and outpt follow up with Surgeon and no SW needs at this time. ANI Diggs
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
== END 2020-07-27 13:00 | disposition home or self-care (01) | DRG 221 ==
LOC: AC 13:00 → ICU 13:02
PROVIDERS: Specialist; Surgery; Admitting Provider Surgery; PCP Nurse Practitioner Family; Referring Provider Surgery; Visit Provider Surgery
PROC: 0DBP0ZZ Excision of Rectum, Open Approach (ICD-10-PCS; CPT 44620; principal; 2020-07-22 11:45)
DX: Z43.3 Encounter for attention to colostomy (principal); R11.2 Nausea with vomiting, unspecified; Z87.891 Personal history of nicotine dependence
CPT/HCPCS: 36415; 36592; 44626; 74022; 80048; 80053; 82565; 83735; 84100; 85007; 85025; 87797; 94762; 97161; 99406; A9270; J0780; J1100; J1170; J1650; J1885; J2250; J2405; J2543; J2704; J3010; J3410; J7121

== ENCOUNTER → 2020-09-16 10:01 | Outpatient (CLI) | payer OTHER, MEDICAID, SELFPAY ==
[2020-07-22 15:00] VITALS: BMI 27.7
[2020-09-16 10:46] LABS: COVID19 -Nasal RAPID Negative (Negative)
== END ==
PROVIDERS: PCP Nurse Practitioner Family; Visit Provider Student in an Organized Health Care Education/Training Program
DX: R05 Cough (principal); R06.02 Shortness of breath; R09.89 Other specified symptoms and signs involving the circulatory and respiratory systems; R51.9 Headache, unspecified; J02.9 Acute pharyngitis, unspecified; Z20.822 Contact with and (suspected) exposure to COVID-19
CPT/HCPCS: 87070; 87077; 87147; 87635; 87880

== ENCOUNTER → 2021-01-25 10:33 | Outpatient (CLI) | payer OTHER, MEDICAID, SELFPAY ==
[2020-07-22 15:00] VITALS: BMI 27.7
[2021-01-25 14:10] LABS: COVID19 -Nasal RAPID Negative (Negative)
== END ==
PROVIDERS: PCP Student in an Organized Health Care Education/Training Program; Referring Provider Surgery; Visit Provider Surgery
DX: Z20.822 Contact with and (suspected) exposure to COVID-19 (principal); Z01.812 Encounter for preprocedural laboratory examination
CPT/HCPCS: 87635; C9803

== ENCOUNTER 2021-01-26 07:46 | Day surgery (SDC) | payer OTHER, MEDICAID, SELFPAY ==
[2020-07-22 15:00] VITALS: BMI 27.7
[2021-01-21 15:12] VITALS: BMI 29.9
[2021-01-26] VITALS (7 sets, daily range): BP systolic 110–151; BP diastolic 62–80; PULSE 64–96; RESP 11–18; TEMP 35.9–36.5; O2SAT 96–99; BMI 29.9
[2021-01-26] MEDS: LACTATED RINGERS 1,000 ML 42 ML IV ×2 (08:15→09:47)
--- NOTE | 2021-01-26 08:45 | PM.PREOP ---
Pre-operative Note Interval Note History & Physical reviewed/Exam performed by Physician: Yes Changes to H&P: No
[2021-01-26] MEDS: CEFAZOLIN 1 GM VIAL 2 GM IV (08:50)
--- NOTE | 2021-01-26 09:08 | SUR.OPER ---
Supine on padded OR bed, head on pillow, arms secured on padded arm boards at <90 degrees abduction, legs uncrossed, safety belt at thigh, tape over blanket over lower legs.
[2021-01-26] MEDS: BUPIVACAINE 0.25% (PF) VIAL 30 ML INJ (09:11)
[2021-01-26] MEDS: HYDROMORPHONE 2 MG INJ IV ×2 (10:31→10:37)
--- NOTE | 2021-01-26 10:34 | PM.OP.1 ---
Operative Date/Time/Diagnoses Date of procedure: 01/26/21 Time of procedure: 10:34 Pre-op diagnosis: Umbilical hernia Post-op diagnosis: same Procedure & Clinicians Procedure: Open umbilical hernia repair with mesh Same procedure as scheduled: Yes Indications: Reducible umbilical hernia Surgeon: Mitch Castro Click Yes if Unassisted: Yes Anesthesia Type: General Operative Notes Findings: 3 cm fascial defect. Hernia sac contains viable omentum Specimen(s): none sent Estimated Blood Loss (mL): 10 Procedure in detail: Patient was brought to the operating room placed supine on the table. Bilateral lower extremity compression devices were applied. General anesthesia was induced and they were intubated with an endotracheal tube. They received 2 g of Ancef prior to skin incision. They were prepped and draped in sterile fashion. A time-out was performed. In infra umbilical incision was made The subcutaneous tissues were divided. The umbilical hernia was identified and the hernia sac was dissected off the umbilical skin and circumferentially off of the fascia defect. The hernia sac was sharply opened and contained viable omentum. The omentum was reduced back into the abdomen. The hernia sac was dissected off of the fascia. The preperitoneal space was developed. The fascia defect was approximately 3 cm in maximal diameter. A Bard Ventralex ST hernia patch 6 cm was inserted beneath the fascia defect and above the peritoneum in a sublay position. The mesh was anchored in multiple locations using Ethibond suture to the fascia and the fascial defect was closed over the mesh. The umbilical skin was tacked to the subcutaneous tissues and then the remainder of the subcutaneous tissues were reapproximated using 3 0 Vicry,l skin closed with 4 0 Monocryl followed by the application of Dermabond and Steri-Strips. Sponge instrument count at the end of the operation was correct. Patient tolerated procedure well was extubated and transferred to postoperative care unit in stable condition. Complications: none Post-operative Condition: stable Disposition: same day surgery
--- NOTE | 2021-01-26 10:41 | SUR.PHASEI ---
Medicated with Dilaudid, reported back to [facility]
[2021-01-26] MEDS: OXYCODONE/ACETAMINOPHEN 5/325 TABLET 1 TAB PO (10:44)
== END 2021-01-26 11:12 | disposition home or self-care (01) ==
PROVIDERS: PCP Student in an Organized Health Care Education/Training Program; Referring Provider Surgery; Visit Provider Surgery
PROC: (CPT 49585; principal; 2021-01-26 09:15)
DX: K42.9 Umbilical hernia without obstruction or gangrene (principal); F17.210 Nicotine dependence, cigarettes, uncomplicated; K21.9 Gastro-esophageal reflux disease without esophagitis
CPT/HCPCS: 49585; 82962; C1781; J0330; J0690; J1100; J1170; J2405; J2704; J3010

== ENCOUNTER → 2021-07-19 09:08 | Outpatient (CLI) | payer OTHER, MEDICAID, SELFPAY ==
[2020-07-22 15:00] VITALS: BMI 27.7
[2021-07-19 10:33] LABS: COVID19 -Nasal RAPID Negative (Negative)
== END ==
PROVIDERS: PCP Student in an Organized Health Care Education/Training Program; Visit Provider Surgery
DX: Z01.812 Encounter for preprocedural laboratory examination (principal); Z20.822 Contact with and (suspected) exposure to COVID-19
CPT/HCPCS: 87635; C9803

== ENCOUNTER 2021-07-20 09:02 | Day surgery (SDC) | payer OTHER, MEDICAID, SELFPAY ==
[2020-07-22 15:00] VITALS: BMI 27.7
[2021-07-20 09:18] VITALS: BMI 31.4
[2021-07-20] MEDS: LACTATED RINGERS 1,000 ML 200 ML IV (09:22)
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
[2021-07-20] MEDS: MIDAZOLAM 5 MG/5 ML VIAL IV (10:38)
[2021-07-20] MEDS: fentaNYL 250 MCG/5 ML INJ IV (10:38)
--- NOTE | 2021-07-20 10:43 | P.OP.COLON_ITS ---
Operative Date/Time/Diagnoses Date of procedure: 07/20/21 Time of procedure: 10:44 Pre-op diagnosis: Rectal bleeding Post-op diagnosis: same Procedure & Clinicians Study performed: Colonoscopy, hemorrhoidal banding Same procedure as scheduled: Yes Indications: Rectal bleeding Surgeon: Mitch Castro Procedure Notes Procedure in detail: Medications: Conscious sedation using 11mg IV midazolam and 150mcg IV of fentanyl The history and physical was performed/updated and the patient is ASA class is 2. The procedure was discussed in detail with the patient. Potential risks complications including infection, bleeding, missed diagnosis, perforation, need for surgery, and were explained. Their questions were answered and informed consent was obtained. Patient was brought to the procedure room and placed standard monitoring equ ipment. The patient's vital signs were monitored continuously throughout the entire procedure. Prior to starting time-out was performed. The patient was placed in the left lateral recumbent position. Procedural sedation was administered. Examination began with a thorough inspection of the perianal area there was no evidence of fissures, fistulae, external hemorrhoids or cutaneous malignancy. The colonoscopy scope was then placed into the anal canal and was advanced to the cecum, which was identified by the ileocecal valve, the appendiceal orifice and the confluence of the taenia. The scope was then slowly withdrawn examining colon thoroughly in all directions, irrigating it of any residual stool. FINDINGS 1. Normal colonic anastomosis status post sigmoid colectomy 2. Grade 2 internal hemorrhoids The patient tolerated the procedure well. They will be discharged once criteria are met. The prep was of good/excellent quality. The withdrawl time was 6 minutes. The sedation time was 20 minutes. Following the colonoscopy endoscopy was performed. There are grade 2 internal hemorrhoids of the left lateral and right posterior columns. The columns were grasped elevated and then doubly ligated at their base with rubber bands. Patient tolerated procedure well. Specimen(s): none sent Complications: none Impression: Normal colonoscopy. Hemorrhoidal banding. Post-procedure Recommendations: High fiber diet Disposition: same day surgery
[2021-07-20 10:49] VITALS: BP 129/93; PULSE 66; RESP 15; TEMP 36.5; O2SAT 96
[2021-07-20 10:54] VITALS: BP 128/91; PULSE 64; RESP 16; O2SAT 95
[2021-07-20 10:59] VITALS: BP 130/80; PULSE 63; RESP 16; O2SAT 97
[2021-07-20 11:04] VITALS: BP 126/88; PULSE 64; RESP 16; O2SAT 98
== END 2021-07-20 11:14 | disposition home or self-care (01) ==
PROVIDERS: PCP Student in an Organized Health Care Education/Training Program; Referring Provider Surgery; Visit Provider Surgery
PROC: 0DJD8ZZ Inspection of Lower Intestinal Tract, Via Natural or Artificial Opening Endoscopic (ICD-10-PCS; CPT 45378; principal; 2021-07-20 10:15)
DX: K62.5 Hemorrhage of anus and rectum (principal); F17.210 Nicotine dependence, cigarettes, uncomplicated; K64.1 Second degree hemorrhoids
CPT/HCPCS: 45378; 46221; 99152; J2250; J3010

== ENCOUNTER 2021-11-24 15:58 | Emergency (ER) | payer OTHER, MEDICAID, SELFPAY ==
[2020-07-22 15:00] VITALS: BMI 27.7
--- NOTE | 2021-11-24 16:00 | DI.RAD.S_ITS ---
PROCEDURE: XR HAND RT MIN 3V INDICATIONS: trauma TECHNIQUE: 3 views of the hand(s) acquired. COMPARISON: None. FINDINGS: Bones: Acute oblique fracture through 4th metacarpal base is seen with dorsal and medial displacement and angulation at fracture site. Overlapping at fracture site is also noted. Questionable erosive changes involving radial aspect of 5th proximal phalangeal head as well as ulnar aspect of 5th metacarpal base.. No other fracture or dislocation. Carpal bones are normally aligned. No suspicious bony lesions. Soft tissues: No suspicious soft tissue calcifications. IMPRESSION: 1. Acute displaced 4th metacarpal base fracture as above. 2. Questionable erosive changes involving 5th metacarpal base and 5th proximal phalangeal head as above which could represent erosion secondary to inflammatory arthropathy, suggest clinical correlation. Dictated by: Mark Amaro M.D. on 11/24/2021 at 16:20 Approved by: Mark Amaro M.D. on 11/24/2021 at 16:24
[2021-11-24 16:01] VITALS: BP 137/85; PULSE 101; RESP 15; TEMP 36.9; O2SAT 95; BMI 30.8
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
== END 2021-11-24 17:00 | disposition home or self-care (01) ==
PROVIDERS: Emergency Provider Nurse Practitioner Critical Care Medicine; PCP Student in an Organized Health Care Education/Training Program
DX: S62.314A Displaced fracture of base of fourth metacarpal bone, right hand, initial encounter for closed fracture (principal); W22.8XXA Striking against or struck by other objects, initial encounter
CPT/HCPCS: 73130; 99283

== ENCOUNTER → 2021-12-17 12:51 | Outpatient (CLI) | payer OTHER, MEDICAID, SELFPAY ==
[2020-07-22 15:00] VITALS: BMI 27.7
--- NOTE | 2021-12-17 | DI.CT.S_ITS ---
PROCEDURE: CT UE RT WO CON INDICATIONS: closed displaced fracture of shaft rt hand TECHNIQUE: Noncontrast 1 mm axial sections acquired through the right hand and wrist, with coronal and sagittal reformats. COMPARISON: [facility], CR, XR HAND RT MIN 3V, 11/24/2021, 15:59. FINDINGS: Image quality: Excellent. Bones: As seen on previous right hand radiograph, again noted is comminuted oblique fracture involving proximal shaft of 4th metacarpal bone with up to 9 mm dorsal displacement and 9 mm overlapping at fracture site. Fracture line is seen extending to 4th metacarpal base. Small medially displaced fractured fragments are noted adjacent to dorsal and volar aspect of 5th metacarpal base. No gross 5th metacarpal bone fracture is identified. Old injury involving distal shaft of 5th proximal phalanx is seen with chronic appearing deformity. No bony erosive changes are noted. No fracture or dislocation is seen in the carpal bones. No suspicious bony lesion. No evidence of osteonecrosis. Soft tissues: Significant soft tissue swelling and edema adjacent to 4th metacarpal shaft fracture site is seen. No other abnormal soft tissue calcifications. No full-thickness extensor or flexor tendon rupture. IMPRESSION: 1. Comminuted, displaced and slightly angulated oblique fracture through proximal shaft of 4th metacarpal bone as described above. Medially displaced fractured fragments volar and dorsal to the 5th metacarpal base. No evidence of 5th metacarpal fracture. 2. Old fracture involving distal portion of 5th proximal phalangeal shaft. No bony erosive changes are seen in 5th proximal phalanx or 5th metacarpal base. 3. Soft tissue swelling surrounding 4th metacarpal shaft fracture site. No full-thickness tendon rupture. No other of normal soft tissue calcifications are seen. Dictated by: Mark Amaro M.D. on 12/17/2021 at 16:06 Approved by: Mark Amaro M.D. on 12/17/2021 at 16:24
== END ==
PROVIDERS: PCP Student in an Organized Health Care Education/Training Program; Referring Provider Physician Assistant Medical; Visit Provider Physician Assistant Medical
DX: S62.324A Displaced fracture of shaft of fourth metacarpal bone, right hand, initial encounter for closed fracture (principal); S62.326S Displaced fracture of shaft of fifth metacarpal bone, right hand, sequela; M79.89 Other specified soft tissue disorders; X58.XXXA Exposure to other specified factors, initial encounter
CPT/HCPCS: 73200

== ENCOUNTER → 2021-12-20 12:11 | Outpatient (CLI) | payer OTHER, MEDICAID, SELFPAY ==
[2020-07-22 15:00] VITALS: BMI 27.7
[2021-12-20 13:15] LABS: COVID19 -Nasal RAPID Negative (Negative)
== END ==
PROVIDERS: PCP Student in an Organized Health Care Education/Training Program; Referring Provider Orthopaedic Surgery; Visit Provider Orthopaedic Surgery
DX: Z20.822 Contact with and (suspected) exposure to COVID-19 (principal)
CPT/HCPCS: 87635; C9803

== ENCOUNTER 2021-12-21 10:07 | Day surgery (SDC) | payer OTHER, MEDICAID, SELFPAY ==
[2020-07-22 15:00] VITALS: BMI 27.7
[2021-12-16 10:43] VITALS: BMI 31.3
[2021-12-21] VITALS (8 sets, daily range): BP systolic 129–143; BP diastolic 70–92; PULSE 54–72; RESP 7–18; TEMP 36.2–36.5; O2SAT 95–99; BMI 31.3
[2021-12-21] MEDS: LACTATED RINGERS 1,000 ML 42 ML IV (10:21)
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
[2021-12-21] MEDS: CEFAZOLIN 2 GM/100 ML PREMIX 100 ML IV (12:15)
--- NOTE | 2021-12-21 13:07 | SUR.OPER ---
Supine on padded OR bed, head on pillow, left arm secured on padded arm boards at <90 degrees abduction, right arm on padded arm board extension with blanket bump covered with gel pads under right arm, gel bump under right shoulder, legs uncrossed, safety belt at thigh, tape over blanket over lower legs. gel pad under bilateral heels.
[2021-12-21] MEDS: BUPIVACAINE 0.5% W/ EPI (PF) 30 ML VIAL INJ (13:15)
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
[2021-12-21] MEDS: OXYCODONE IR 5 MG TABLET PO ×2 (14:21→14:49)
[2021-12-21] MEDS: HYDROMORPHONE 2 MG INJ IV ×2 (14:24→14:32)
== END 2021-12-21 15:25 | disposition home or self-care (01) ==
PROVIDERS: PCP Student in an Organized Health Care Education/Training Program; Referring Provider Orthopaedic Surgery; Visit Provider Orthopaedic Surgery
PROC: (CPT 26615; principal; 2021-12-21 11:00)
DX: S62.314A Displaced fracture of base of fourth metacarpal bone, right hand, initial encounter for closed fracture (principal); S62.316A Displaced fracture of base of fifth metacarpal bone, right hand, initial encounter for closed fracture; X83.8XXA Intentional self-harm by other specified means, initial encounter
CPT/HCPCS: 26615 ×2; J0690; J1100; J1170; J2250; J2405; J2704; J3010

== ENCOUNTER → 2022-09-02 13:16 | Outpatient (CLI) | payer OTHER, MEDICAID, SELFPAY ==
[2020-07-22 15:00] VITALS: BMI 27.7
[2022-09-02 14:27] LABS: Influenza A - CEPHEID Flu A NEGATIVE (NEGATIVE); Influenza B - CEPHEID Flu B NEGATIVE (NEGATIVE); Respiratory Syncytial Virus Negative (Negative)
[2022-09-02 14:31] LABS: COVID-19 CEPHEID 4-PLEX PCR Negative (Negative)
== END ==
PROVIDERS: PCP Student in an Organized Health Care Education/Training Program; Visit Provider Physician Assistant
DX: R05.9 Cough, unspecified (principal)
CPT/HCPCS: 0241U

== ENCOUNTER → 2022-12-05 09:55 | Outpatient (CLI) | payer OTHER, MEDICAID, SELFPAY ==
[2022-09-16 12:01] VITALS: BMI 27.7
--- NOTE | 2022-12-05 09:57 | DI.RAD.S_ITS ---
PROCEDURE: XR CERVICAL SPINE 4V OR 5V INDICATIONS: NECK PAIN TECHNIQUE: 5 views of the cervical spine acquired. COMPARISON: [facility], CT, CT CERVICAL SPINE WO CON, 11/10/2019, 0:24. [facility], MR, MR CERVICAL SPINE WO CON, 06/13/2020, 8:56. FINDINGS: Bones: No fractures or dislocations to the C7-T1 level. Mild disc space narrowing degenerative endplate changes are most notable at the C5-6 level. There is multilevel uncovertebral joint and facet hypertrophy. Oblique views demonstrate multifocal neural foraminal narrowing, overall greater on the right than on the left and most notable at the C2-3, C3-4, and C5-6 levels. Soft tissues: No prevertebral soft tissue swelling. IMPRESSION: [id number] multilevel spondylosis. Approved by: Tevin Flores M.D. on 12/05/2022 at 11:14
== END ==
PROVIDERS: PCP Pediatrics; Referring Provider Physical Medicine & Rehabilitation; Visit Provider Physical Medicine & Rehabilitation
DX: M54.2 Cervicalgia (principal); M47.812 Spondylosis without myelopathy or radiculopathy, cervical region
CPT/HCPCS: 72050

== ENCOUNTER → 2023-01-05 16:41 | Outpatient (CLI) | payer OTHER, MEDICAID, SELFPAY ==
[2022-09-16 12:01] VITALS: BMI 27.7
--- NOTE | 2023-01-05 16:43 | DI.RAD.S_ITS ---
PROCEDURE: XR CHEST 2V INDICATIONS: shortness of breath, rib pain, dyspnia on exer TECHNIQUE: 2 views of the chest were acquired. COMPARISON: None. FINDINGS: Surgical changes and devices: None. Lungs and pleura: Lungs are clear. No pleural effusions or pneumothorax. Mediastinum: Mediastinal contours are normal. Heart size is normal. Bones and chest wall: No suspicious bony abnormalities. Soft tissues appear unremarkable. IMPRESSION: No acute cardiopulmonary abnormality is seen. Dictated by: Craig Keith M.D. on 01/06/2023 at 9:04 Approved by: Craig Keith M.D. on 01/06/2023 at 9:06
--- NOTE | 2023-01-05 16:43 | DI.RAD.S_ITS ---
PROCEDURE: XR THORACIC SPINE 3V INDICATIONS: shortness of breath, rib pain, dyspnia on exer TECHNIQUE: 3 views of the thoracic spine were acquired. COMPARISON: None. FINDINGS: Bones: No fractures or dislocations. No suspicious bony lesions. 12 pairs of ribs are noted, and appear intact where visualized. Soft tissues: No paravertebral stripe thickening. IMPRESSION: Normal x-ray of the thoracic spine. Dictated by: Craig Keith M.D. on 01/06/2023 at 8:52 Approved by: Craig Keith M.D. on 01/06/2023 at 9:03
== END ==
PROVIDERS: PCP Pediatrics; Referring Provider Pediatrics; Visit Provider Pediatrics
DX: R06.02 Shortness of breath (principal); R07.81 Pleurodynia; R06.09 Other forms of dyspnea
CPT/HCPCS: 71046; 72072

== ENCOUNTER → 2023-02-28 09:58 | Outpatient (CLI) | payer OTHER, MEDICAID, SELFPAY ==
[2022-09-16 12:01] VITALS: BMI 27.7
--- NOTE | 2023-02-28 09:59 | DI.RAD.S_ITS ---
PROCEDURE: XR HIP W PEL IF DONE RT 2V INDICATIONS: right hip pain TECHNIQUE: AP pelvis with lateral view(s) of the right hip(s). COMPARISON: None. FINDINGS: Bones: No fractures or dislocations. Pelvic ring appears intact. No suspicious bony lesions. Soft tissues: The visualized bowel gas pattern is normal. No suspicious soft tissue calcifications. IMPRESSION: No acute osseous abnormality. If pain persists with conservative management, consider repeat x-ray in 10-14 days or cross-sectional imaging. Dictated by: Craig Keith M.D. on 02/28/2023 at 11:00 Approved by: Craig Keith M.D. on 02/28/2023 at 11:01
== END ==
PROVIDERS: PCP Family Medicine; Referring Provider Family Medicine; Visit Provider Family Medicine
DX: M25.551 Pain in right hip (principal)
CPT/HCPCS: 73502

== ENCOUNTER 2023-05-10 11:00 | Outpatient (RCR) | payer OTHER, MEDICAID, SELFPAY ==
[2022-09-16 12:01] VITALS: BMI 27.7
--- NOTE | 2023-04-12 13:06 | PT.OPPOC ---
Physical, Occupational & Speech Therapy At [facility] Current Diagnoses Pain in right hip (04/12/23) Visit Care Team Role Provider Type Chato Cox DO Attending Provider Physician Family Provider Primary Care Provider Referring Provider Specialty: Family Practice Address: [address] [place] [address], [id number] Email: [email or web address] Plan Of Care PT-OP-T Assessment and Plan Start: 04/11/23 13:03 Freq: Status: Active Protocol: Document 04/12/23 10:24 MB (Rec: 04/12/23 11:03 MB [id number]) Physical Therapy Assessment Rehab Potential Rehabilitation Potential Good Evaluation Complexity Number of Personal Factors/Comorbidities 1-2 Number of Body Systems Impaired 1-2 Clinical Presentation at Evaluation Evolving Impairments Impairments Pain,Posture,ROM,Soft Tissue Mobility,Strength Goals 3 Impairment Right hip weakness Scrap Iron Cutter Goal (LTG) Pt will present with improved right hip strength equal to the left to improve function and strength. LTG Duration 8 weeks 2 Impairment Lack of HEP Alf Goal (LTG) Pt will perform HEP with I including pelvic realignment, pain management, flexibility, core and LE strengthening and balance exercises with I. LTG Duration 8 weeks 1 Impairment LEF score 49/80 Scrap Iron Cutter Goal (LTG) Pt will present with an improved LEF score to at least 60/80 to reflect improved pain and function. LTG Duration 8 weeks Assessment Summary Assessment Pt presents with anterior right hip pain near the groin. He has hip pain and weakness with MMT with pain with resisted adduction and flexion . Scour is positive. His functional presentation is most consistent with impingement-type situation. Right hip x-ray was negative and findings may only be found in MRI as referring doctor deems appropriate. Pt presents with increased body habitus, sedentary lifestyle, smoking, and postural changes that contribute to his pain presentation. He will benefit from PT for pelvic realignment , flexibility and gentle strengthening exercises. Pt is very receptive to education today by PT. Pt will benefit from manual work for hip flexor, QL and hip muscles as well and this will be part of PT course. Physical Therapy Plan Frequency and Duration Frequency of Treatment 1-2x/wk Duration of treatment (weeks) 8 Plan of Care Start Date 04/12/23 Plan of Care End Date 06/12/23 Therapeutic Interventions Therapeutic Interventions Balance Training,Gait Training ,Home Exercise Program,Joint Mobilizations,Manual Therapy, Neuromuscular Re-education, Patient/Caregiver Education, Self-Care/Home Management, Sensory Integration,Soft Tissue Mobilization,Taping, Therapeutic Activities, Therapeutic Exercises Modalities Cold Pack/Ice Massage,Electric Stimulation,Hot Packs Next Visit Focus/Plan Next Note Type Treatment Note Next Visit Plan Review pelvic realignment exercises Manual work--check out the hip flexor, rotators, QL Over PT treatments, initiate gentle LE flexibility in supine/hook lying including glutes, hip rotators, hip flexors and hamstrings, progress core and LE strengthening, balance exercises such as SLS Plan of Care Dates Plan of Care Start Date 04/12/23 Plan of Care End Date 06/12/23 Electronically Signed by: Klarissa Del Rosario PT 04/12/23 1234 If you are in agreement with this Plan of Care, please return a signed and dated copy. I have reviewed this Plan of Care and certify that the skilled therapy services above are required to meet the patient?s needs. Physician Signature Date Printed Name and Credentials Clinical Instructor Signature Printed Name and Credentials
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
--- NOTE | 2023-04-17 11:14 | PT.OTN ---
Current Diagnoses Pain in right hip (04/17/23) Physical Therapy Treatment Note PT-OP-A Visit Information Start: 04/11/23 13:03 Freq: Status: Active Protocol: Document 04/17/23 10:30 MB (Rec: 04/17/23 11:13 MB [id number]) Out-Patient Physical Therapy Visit Information Visit Information Visit Type Treatment Note Visit Note [place] 05/13 visits for year Visit Start Time 10:30 Visit Stop Time 11:15 Visit Number 2 Number of FINANCIAL AID COORDINATOR Visits 0 PT-OP-B Current Condition Start: 04/11/23 13:03 Freq: Status: Active Protocol: Document 04/12/23 10:24 MB (Rec: 04/12/23 11:03 MB [id number]) Current Condition History of Current Condition Onset Date October 2022 Current Complaints Groin area hip pain when lifting leg up and to the side , donning socks History of Current Condition In 2005, pt fell off a roof and landed on his feet. He broke his right arm and right talus. He was NWB and used crutches for about a year. He did not have any surgeries. 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 In October, he started having rib problems with pain in posterior right side. Pt has bone chips in right ankle. Pt wakes up d/t pain. He tries to sleep flat on his back and ends up on side and belly. Pt did have colon surgery and temporary colostomy in 2019 d/ t fibroids in his colon. Treatment Goals Patient/Caregiver Goals To decrease pain PT-OP-C Subjective Start: 04/11/23 13:03 Freq: Status: Active Protocol: Document 04/17/23 10:30 MB (Rec: 04/17/23 11:13 MB [id number]) OP-PT Subjective Patient Comments Patient Comments Pt states that the pelvic realignment exercises are helpful. They are easy and he feels looser afterwards. PT-OP-G Mobility & Gait Start: 04/11/23 13:03 Freq: Status: Active Protocol: Document 04/12/23 10:24 MB (Rec: 04/12/23 11:03 MB [id number]) OP Gait Assessment Comments Gait Comments Short steps and wide NILAY, decrease right ankle, forefoot and right great toe push off with gait, little arm swing and little pelvic movement with gait PT-OP-J Posture/Palpation/Skin Start: 04/11/23 13:03 Freq: Status: Active Protocol: Document 04/12/23 10:24 MB (Rec: 04/12/23 11:03 MB [id number]) Posture Evaluation Comments Posture Comments Standing posture: mild Dowager 's hump, decreased thoracic kyphosis, left shoulder mildly higher than the right and left iliac crest mildly higher than the right PT-OP-K Range of Motion Start: 04/11/23 13:03 Freq: Status: Active Protocol: Document 04/12/23 10:24 MB (Rec: 04/12/23 11:03 MB [id number]) Hip Goniometric Range of Motion Hip ROM Limitations Comments B PROM hips in supine is limited with IR to neutral on the left and ER is also very tight and moves to 15 deg. Pt has no pain with Scour left hip but it is challenging to move his hip passively and leg does not easily move into EDISON. Right hip PROM: right IR moves better to 10 deg and ER to 25 deg. On the right, positive Scour and negative EDISON Ankle and Foot Goniometric Range of Motion Ankle and Foot ROM Limitations Comments Pt has reduced right ankle DF from talus fracture PT-OP-M Strength Start: 04/11/23 13:03 Freq: Status: Active Protocol: Document 04/12/23 10:24 MB (Rec: 04/12/23 11:03 MB [id number]) Hip Strength Hip Manual Muscle Testing Right Flexion (L2) 4+ Good+ Extension (S1) 4+ Good+ Abduction 4 Good Adduction 4 Good Comments Painful adduction and flexion Left Flexion (L2) 5 Normal Extension (S1) 4+ Good+ Abduction 5 Normal Adduction 5 Normal Knee Strength Knee Manual Muscle Testing Right Flexion (S2) 5 Normal Extension (L3) 5 Normal Left Flexion (S2) 5 Normal Extension (L3) 5 Normal Ankle/Foot Strength Ankle and Foot Manual Muscle Testing Right Comments Deferred d/t old injury and toes tend to flex with DF Left Dorsiflexion (L4) 5 Normal Toe Strength Toe Manual Muscle Testing Right Great Toe Comments Deferred d/t old fracture, toe tends to flex Left Great Toe Extension 5 Normal PT-OP-Q Treatments Start: 04/11/23 13:03 Freq: Status: Active Protocol: Document 04/17/23 10:30 MB (Rec: 04/17/23 11:13 MB [id number]) Therapeutic Exercises Supine Exercises Pelvic realignment exercises Side bilateral Reps/Minutes 5 reps, 3 sec hold all exercises in order Comments Feet together ball squeeze, knee to opp ankle isometric, thigh press down Standing Exercises Doorway stretches Standing Exercise Name Combo pect, gastroc, hip flexor and QL progression stretching Comments Several minutes each side Manual Therapy Treatment Other Other Manual Treatments Pt hook lying with head and neck supported by pillow and legs up on plinth: B vastus lateralis, TFL and hip flexor STM and release, increased tension B hip flexors PT-OP-T Assessment and Plan Start: 04/11/23 13:03 Freq: Status: Active Protocol: Document 04/17/23 10:30 MB (Rec: 04/17/23 11:13 [id number]) Physical Therapy Assessment Rehab Potential Rehabilitation Potential Good Evaluation Complexity Number of Personal Factors/Comorbidities 1-2 Number of Body Systems Impaired 1-2 Clinical Presentation at Evaluation Evolving Impairments Impairments Pain,Posture,ROM,Soft Tissue Mobility,Strength Goals 3 Impairment Right hip weakness Security Professionals Goal (LTG) Pt will present with improved right hip strength equal to the left to improve function and strength. LTG Duration 8 weeks 2 Impairment Lack of HEP Usp Goal (LTG) Pt will perform HEP with I including pelvic realignment, pain management, flexibility, core and LE strengthening and balance exercises with I. LTG Duration 8 weeks 1 Impairment LEF score 49/80 Security Professionals Goal (LTG) Pt will present with an improved LEF score to at least 60/80 to reflect improved pain and function. LTG Duration 8 weeks Assessment Summary Assessment Pt feels better with pelvic realignment and flexibility exercises today. Increased tension B hip flexors, TFLs, vastus lateralis. Physical Therapy Plan Frequency and Duration Frequency of Treatment 1-2x/wk Duration of treatment (weeks) 8 Plan of Care Start Date 04/12/23 Plan of Care End Date 06/12/23 Therapeutic Interventions Therapeutic Interventions Balance Training,Gait Training ,Home Exercise Program,Joint Mobilizations,Manual Therapy, Neuromuscular Re-education, Patient/Caregiver Education, Self-Care/Home Management, Sensory Integration,Soft Tissue Mobilization,Taping, Therapeutic Activities, Therapeutic Exercises Modalities Cold Pack/Ice Massage,Electric Stimulation,Hot Packs Next Visit Focus/Plan Next Note Type Treatment Note Next Visit Plan Ongoing manual work Over PT treatments, initiate gentle LE flexibility in supine/hook lying including glutes, hip rotators, hamstrings, progress core and LE strengthening, balance exercises such as SLS. Consider hook lying strengthening such as gentle core progression and hip rotator/glute strengthening. Consider visceral massage, I Love You massage training and diaphragm breathing
--- NOTE | 2023-04-20 12:37 | PT.OTN ---
Current Diagnoses Pain in right hip (04/20/23) Physical Therapy Treatment Note PT-OP-A Visit Information Start: 04/11/23 13:03 Freq: Status: Active Protocol: Document 04/20/23 11:10 SW (Rec: 04/20/23 12:16 [id number]) Out-Patient Physical Therapy Visit Information Visit Information Visit Type Treatment Note Visit Note [place] 06/10 visits for year Visit Start Time 11:15 Visit Stop Time 11:55 Visit Number 3 Number of SMALL BUSINESS SALES REPRESENTATIVE Visits 1 PT-OP-B Current Condition Start: 04/11/23 13:03 Freq: Status: Active Protocol: Document 04/12/23 10:24 MB (Rec: 04/12/23 11:03 MB [id number]) Current Condition History of Current Condition Onset Date October 2022 Current Complaints Groin area hip pain when lifting leg up and to the side , donning socks History of Current Condition In 2005, pt fell off a roof and landed on his feet. He broke his right arm and right talus. He was NWB and used crutches for about a year. He did not have any surgeries. 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 In October, he started having rib problems with pain in posterior right side. Pt has bone chips in right ankle. Pt wakes up d/t pain. He tries to sleep flat on his back and ends up on side and belly. Pt did have colon surgery and temporary colostomy in 2019 d/ t fibroids in his colon. Treatment Goals Patient/Caregiver Goals To decrease pain PT-OP-C Subjective Start: 04/11/23 13:03 Freq: Status: Active Protocol: Document 04/20/23 11:10 SW (Rec: 04/20/23 12:16 [id number]) OP-PT Subjective Patient Comments Patient Comments Pt reports more tired than usual since taking new medication since December. Pt reports doing exercises. PT-OP-G Mobility & Gait Start: 04/11/23 13:03 Freq: Status: Active Protocol: Document 04/12/23 10:24 MB (Rec: 04/12/23 11:03 MB [id number]) OP Gait Assessment Comments Gait Comments Short steps and wide NILAY, decrease right ankle, forefoot and right great toe push off with gait, little arm swing and little pelvic movement with gait PT-OP-J Posture/Palpation/Skin Start: 04/11/23 13:03 Freq: Status: Active Protocol: Document 04/12/23 10:24 MB (Rec: 04/12/23 11:03 MB [id number]) Posture Evaluation Comments Posture Comments Standing posture: mild Dowager 's hump, decreased thoracic kyphosis, left shoulder mildly higher than the right and left iliac crest mildly higher than the right PT-OP-K Range of Motion Start: 04/11/23 13:03 Freq: Status: Active Protocol: Document 04/12/23 10:24 MB (Rec: 04/12/23 11:03 MB [id number]) Hip Goniometric Range of Motion Hip ROM Limitations Comments B PROM hips in supine is limited with IR to neutral on the left and ER is also very tight and moves to 15 deg. Pt has no pain with Scour left hip but it is challenging to move his hip passively and leg does not easily move into EDISON. Right hip PROM: right IR moves better to 10 deg and ER to 25 deg. On the right, positive Scour and negative EDISON Ankle and Foot Goniometric Range of Motion Ankle and Foot ROM Limitations Comments Pt has reduced right ankle DF from talus fracture PT-OP-M Strength Start: 04/11/23 13:03 Freq: Status: Active Protocol: Document 04/12/23 10:24 MB (Rec: 04/12/23 11:03 MB [id number]) Hip Strength Hip Manual Muscle Testing Right Flexion (L2) 4+ Good+ Extension (S1) 4+ Good+ Abduction 4 Good Adduction 4 Good Comments Painful adduction and flexion Left Flexion (L2) 5 Normal Extension (S1) 4+ Good+ Abduction 5 Normal Adduction 5 Normal Knee Strength Knee Manual Muscle Testing Right Flexion (S2) 5 Normal Extension (L3) 5 Normal Left Flexion (S2) 5 Normal Extension (L3) 5 Normal Ankle/Foot Strength Ankle and Foot Manual Muscle Testing Right Comments Deferred d/t old injury and toes tend to flex with DF Left Dorsiflexion (L4) 5 Normal Toe Strength Toe Manual Muscle Testing Right Great Toe Comments Deferred d/t old fracture, toe tends to flex Left Great Toe Extension 5 Normal PT-OP-Q Treatments Start: 04/11/23 13:03 Freq: Status: Active Protocol: Document 04/20/23 11:10 SW (Rec: 04/20/23 12:16 [id number]) Therapeutic Exercises Supine Exercises HS Stretch Supine Exercise Name Gentle HS stretch Comments <90 degrees hip flex d/t ant hip pain Pelvic realignment exercises Supine Exercise Name cues for knee to op ankle movement Side bilateral Reps/Minutes 5 reps, 3 sec hold all exercises in order Comments Feet together ball squeeze, knee to opp ankle isometric, thigh press down Standing Exercises Doorway stretches Standing Exercise Name Combo pect, gastroc, hip flexor and QL progression stretching Comments Several minutes each side Manual Therapy Treatment Other Other Manual Treatments Pt hook lying with head and neck supported by pillow and legs up on plinth: B vastus lateralis, TFL and hip flexor STM and release, increased tension B hip flexors, LAD to assist with synovial fluid movement within the joint PT-OP-T Assessment and Plan Start: 04/11/23 13:03 Freq: Status: Active Protocol: Document 04/20/23 11:10 (Rec: 04/20/23 12:16 [id number]) Physical Therapy Assessment Goals 3 Impairment Right hip weakness [employer] Centrifuge Operator Goal (LTG) Pt will present with improved right hip strength equal to the left to improve function and strength. LTG Duration 8 weeks 2 Impairment Lack of HEP [facility] Goal (LTG) Pt will perform HEP with I including pelvic realignment, pain management, flexibility, core and LE strengthening and balance exercises with I. LTG Duration 8 weeks 1 Impairment LEF score 49/80 [employer] Processing Centrifuge Operator Goal (LTG) Pt will present with an improved LEF score to at least 60/80 to reflect improved pain and function. LTG Duration 8 weeks Assessment Summary Assessment Continued STM in anterior hip this session, pt continues to have increased tension in bilateral hip flexors. Initiated gentle HS stretch this session to increase flexibility/ROM, stretched in <90 degrees hip flexion d/t pt tolerance, plan to assess response next session and progress as tolerated within PT POC. Pt reports difficulty getting to floor with kids, pt may benefit from floor transfer for mechanics. Physical Therapy Plan Frequency and Duration Frequency of Treatment 1-2x/wk Duration of treatment (weeks) 8 Plan of Care Start Date 04/12/23 Plan of Care End Date 06/12/23 Therapeutic Interventions Therapeutic Interventions Balance Training,Gait Training ,Home Exercise Program,Joint Mobilizations,Manual Therapy, Neuromuscular Re-education, Patient/Caregiver Education, Self-Care/Home Management, Sensory Integration,Soft Tissue Mobilization,Taping, Therapeutic Activities, Therapeutic Exercises Modalities Cold Pack/Ice Massage,Electric Stimulation,Hot Packs Next Visit Focus/Plan Next Note Type Treatment Note Next Visit Plan Ongoing manual work Over PT treatments, initiate gentle LE flexibility in supine/hook lying including glutes, hip rotators, hamstrings, progress core and LE strengthening, balance exercises such as SLS. Consider hook lying strengthening such as gentle core progression and hip rotator/glute strengthening. Consider visceral massage, I Love You massage training and diaphragm breathing
--- NOTE | 2023-04-27 12:38 | PT.OTN ---
Current Diagnoses Pain in right hip (04/27/23) Physical Therapy Treatment Note PT-OP-A Visit Information Start: 04/11/23 13:03 Freq: Status: Active Protocol: Document 04/27/23 11:21 SW (Rec: 04/27/23 12:17 [id number]) Out-Patient Physical Therapy Visit Information Visit Information Visit Type Treatment Note Visit Note [place] 08/10 visits for year Visit Start Time 11:18 Visit Stop Time 12:00 Visit Number 5 PT-OP-B Current Condition Start: 04/11/23 13:03 Freq: Status: Active Protocol: Document 04/12/23 10:24 MB (Rec: 04/12/23 11:03 MB [id number]) Current Condition History of Current Condition Onset Date October 2022 Current Complaints Groin area hip pain when lifting leg up and to the side , donning socks History of Current Condition In 2005, pt fell off a roof and landed on his feet. He broke his right arm and right talus. He was NWB and used crutches for about a year. He did not have any surgeries. 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 In October, he started having rib problems with pain in posterior right side. Pt has bone chips in right ankle. Pt wakes up d/t pain. He tries to sleep flat on his back and ends up on side and belly. Pt did have colon surgery and temporary colostomy in 2019 d/ t fibroids in his colon. Treatment Goals Patient/Caregiver Goals To decrease pain PT-OP-C Subjective Start: 04/11/23 13:03 Freq: Status: Active Protocol: Document 04/27/23 11:21 (Rec: 04/27/23 12:17 [id number]) OP-PT Subjective Patient Comments Patient Comments Pt reports tripping over gas hose while fueling up, caught self to avoid fall, but hurt back and hip. Pt reports waiting for letter for insurance, to set up apt for MRI. PT-OP-G Mobility & Gait Start: 04/11/23 13:03 Freq: Status: Active Protocol: Document 04/12/23 10:24 MB (Rec: 04/12/23 11:03 MB [id number]) OP Gait Assessment Comments Gait Comments Short steps and wide NILAY, decrease right ankle, forefoot and right great toe push off with gait, little arm swing and little pelvic movement with gait PT-OP-J Posture/Palpation/Skin Start: 04/11/23 13:03 Freq: Status: Active Protocol: Document 04/12/23 10:24 MB (Rec: 04/12/23 11:03 MB [id number]) Posture Evaluation Comments Posture Comments Standing posture: mild Dowager 's hump, decreased thoracic kyphosis, left shoulder mildly higher than the right and left iliac crest mildly higher than the right PT-OP-K Range of Motion Start: 04/11/23 13:03 Freq: Status: Active Protocol: Document 04/12/23 10:24 MB (Rec: 04/12/23 11:03 MB [id number]) Hip Goniometric Range of Motion Hip ROM Limitations Comments B PROM hips in supine is limited with IR to neutral on the left and ER is also very tight and moves to 15 deg. Pt has no pain with Scour left hip but it is challenging to move his hip passively and leg does not easily move into EDISON. Right hip PROM: right IR moves better to 10 deg and ER to 25 deg. On the right, positive Scour and negative EDISON Ankle and Foot Goniometric Range of Motion Ankle and Foot ROM Limitations Comments Pt has reduced right ankle DF from talus fracture PT-OP-M Strength Start: 04/11/23 13:03 Freq: Status: Active Protocol: Document 04/12/23 10:24 MB (Rec: 04/12/23 11:03 MB [id number]) Hip Strength Hip Manual Muscle Testing Right Flexion (L2) 4+ Good+ Extension (S1) 4+ Good+ Abduction 4 Good Adduction 4 Good Comments Painful adduction and flexion Left Flexion (L2) 5 Normal Extension (S1) 4+ Good+ Abduction 5 Normal Adduction 5 Normal Knee Strength Knee Manual Muscle Testing Right Flexion (S2) 5 Normal Extension (L3) 5 Normal Left Flexion (S2) 5 Normal Extension (L3) 5 Normal Ankle/Foot Strength Ankle and Foot Manual Muscle Testing Right Comments Deferred d/t old injury and toes tend to flex with DF Left Dorsiflexion (L4) 5 Normal Toe Strength Toe Manual Muscle Testing Right Great Toe Comments Deferred d/t old fracture, toe tends to flex Left Great Toe Extension 5 Normal PT-OP-Q Treatments Start: 04/11/23 13:03 Freq: Status: Active Protocol: Document 04/27/23 11:21 (Rec: 04/27/23 12:17 [id number]) Therapeutic Exercises Supine Exercises clams Supine Exercise Name Clams Side bilateral Resistance level 1 TB Reps/Minutes 2x10 Comments cues for eccentric Bridge Supine Exercise Name Bridge Side bilateral Resistance AROM Reps/Minutes 3x10 Comments cues to glute/core engagement HS Stretch Supine Exercise Name 1. Gentle HS stretch 2. HS stretch w/ strap 3. IT band stretch w/ strap Equipment Used /c strap Reps/Minutes 30s ea Comments <90 degrees hip flex d/t ant hip pain Pelvic realignment exercises Supine Exercise Name cues for knee to op ankle movement Side bilateral Reps/Minutes 5 reps, 5 sec hold all exercises in order Comments Feet together ball squeeze, knee to opp ankle isometric, thigh press down Manual Therapy Treatment Manual Techniques ROM Type ROM, LAD Body Location R hip Body Position Supine PT-OP-T Assessment and Plan Start: 04/11/23 13:03 Freq: Status: Active Protocol: Document 04/27/23 11:21 (Rec: 04/27/23 12:17 [id number]) Physical Therapy Assessment Goals 3 Impairment Right hip weakness [employer] Gun[employer] Goal (LTG) Pt will present with improved right hip strength equal to the left to improve function and strength. LTG Duration 8 weeks 2 Impairment Lack of HEP [employer] Gun[employer] Goal (LTG) Pt will perform HEP with I including pelvic realignment, pain management, flexibility, core and LE strengthening and balance exercises with I. LTG Duration 8 weeks 1 Impairment LEF score 49/80 [employer] Gun[employer] Goal (LTG) Pt will present with an improved LEF score to at least 60/80 to reflect improved pain and function. LTG Duration 8 weeks Assessment Summary Assessment Started session with manual therapy to address pt discomfort and warm up tissues . Pt reported good tolerance to addition of bridge last session. Pt tolerated progression with supine clams this session to increase hip strength, no increase in baseline symptoms, denies pain , cues required for eccentric control. Continued stretching to increase flexibility, cues for breathwork. Plan to followup on pt tolerance next session to addition of HEP and progress as able. Physical Therapy Plan Frequency and Duration Frequency of Treatment 1-2x/wk Duration of treatment (weeks) 8 Plan of Care Start Date 04/12/23 Plan of Care End Date 06/12/23 Therapeutic Interventions Therapeutic Interventions Balance Training,Gait Training ,Home Exercise Program,Joint Mobilizations,Manual Therapy, Neuromuscular Re-education, Patient/Caregiver Education, Self-Care/Home Management, Sensory Integration,Soft Tissue Mobilization,Taping, Therapeutic Activities, Therapeutic Exercises Modalities Cold Pack/Ice Massage,Electric Stimulation,Hot Packs Next Visit Focus/Plan Next Note Type Treatment Note Next Visit Plan Ongoing manual work Over PT treatments, initiate gentle LE flexibility in supine/hook lying including glutes, hip rotators, hamstrings, progress core and LE strengthening, balance exercises such as SLS. Consider hook lying strengthening such as gentle core progression and hip rotator/glute strengthening. Consider visceral massage, I Love You massage training and diaphragm breathing
--- NOTE | 2023-05-10 11:47 | PT.OTN ---
Current Diagnoses Pain in right hip (05/10/23) Physical Therapy Treatment Note PT-OP-A Visit Information Start: 04/11/23 13:03 Freq: Status: Active Protocol: Document 05/10/23 11:02 MB (Rec: 05/10/23 11:47 MB [id number]) Out-Patient Physical Therapy Visit Information Visit Information Visit Type Treatment Note Visit Note [place] 09/10 visits for year Visit Start Time 11:02 Visit Stop Time 11:42 Visit Number 6 Number of PARTS CLERK Visits 0 PT-OP-B Current Condition Start: 04/11/23 13:03 Freq: Status: Active Protocol: Document 04/12/23 10:24 MB (Rec: 04/12/23 11:03 MB [id number]) Current Condition History of Current Condition Onset Date October 2022 Current Complaints Groin area hip pain when lifting leg up and to the side , donning socks History of Current Condition In 2005, pt fell off a roof and landed on his feet. He broke his right arm and right talus. He was NWB and used crutches for about a year. He did not have any surgeries. 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 In October, he started having rib problems with pain in posterior right side. Pt has bone chips in right ankle. Pt wakes up d/t pain. He tries to sleep flat on his back and ends up on side and belly. Pt did have colon surgery and temporary colostomy in 2019 d/ t fibroids in his colon. Treatment Goals Patient/Caregiver Goals To decrease pain PT-OP-C Subjective Start: 04/11/23 13:03 Freq: Status: Active Protocol: Document 05/10/23 11:02 MB (Rec: 05/10/23 11:47 MB [id number]) OP-PT Subjective Patient Comments Patient Comments Pt states he is feeling a little better. Pt got the insurance approval for right hip MRI and he is walking over to ask about it. PT-OP-G Mobility & Gait Start: 04/11/23 13:03 Freq: Status: Active Protocol: Document 04/12/23 10:24 MB (Rec: 04/12/23 11:03 MB [id number]) OP Gait Assessment Comments Gait Comments Short steps and wide NILAY, decrease right ankle, forefoot and right great toe push off with gait, little arm swing and little pelvic movement with gait PT-OP-J Posture/Palpation/Skin Start: 04/11/23 13:03 Freq: Status: Active Protocol: Document 04/12/23 10:24 MB (Rec: 04/12/23 11:03 MB [id number]) Posture Evaluation Comments Posture Comments Standing posture: mild Dowager 's hump, decreased thoracic kyphosis, left shoulder mildly higher than the right and left iliac crest mildly higher than the right PT-OP-K Range of Motion Start: 04/11/23 13:03 Freq: Status: Active Protocol: Document 04/12/23 10:24 MB (Rec: 04/12/23 11:03 MB [id number]) Hip Goniometric Range of Motion Hip ROM Limitations Comments B PROM hips in supine is limited with IR to neutral on the left and ER is also very tight and moves to 15 deg. Pt has no pain with Scour left hip but it is challenging to move his hip passively and leg does not easily move into EDISON. Right hip PROM: right IR moves better to 10 deg and ER to 25 deg. On the right, positive Scour and negative EDISON Ankle and Foot Goniometric Range of Motion Ankle and Foot ROM Limitations Comments Pt has reduced right ankle DF from talus fracture PT-OP-M Strength Start: 04/11/23 13:03 Freq: Status: Active Protocol: Document 04/12/23 10:24 MB (Rec: 04/12/23 11:03 MB [id number]) Hip Strength Hip Manual Muscle Testing Right Flexion (L2) 4+ Good+ Extension (S1) 4+ Good+ Abduction 4 Good Adduction 4 Good Comments Painful adduction and flexion Left Flexion (L2) 5 Normal Extension (S1) 4+ Good+ Abduction 5 Normal Adduction 5 Normal Knee Strength Knee Manual Muscle Testing Right Flexion (S2) 5 Normal Extension (L3) 5 Normal Left Flexion (S2) 5 Normal Extension (L3) 5 Normal Ankle/Foot Strength Ankle and Foot Manual Muscle Testing Right Comments Deferred d/t old injury and toes tend to flex with DF Left Dorsiflexion (L4) 5 Normal Toe Strength Toe Manual Muscle Testing Right Great Toe Comments Deferred d/t old fracture, toe tends to flex Left Great Toe Extension 5 Normal PT-OP-Q Treatments Start: 04/11/23 13:03 Freq: Status: Active Protocol: Document 02/21/24 11:02 MB (Rec: 05/10/23 11:47 MB [id number]) Therapeutic Exercises Supine Exercises TFL stretch Side bilateral Equipment Used Strap Reps/Minutes 60 sec Comments Ed on feeling the muscle and consider bend and straighten leg to help mus clams Supine Exercise Name Clams Side bilateral Resistance Level 2 TB Reps/Minutes 2x10 reps Bridge Supine Exercise Name Bridge Resistance Level 2 TB Reps/Minutes 10 Comments Cues to breathe, core engagement HS Stretch Side bilateral Equipment Used Gait belt behind leg Reps/Minutes 60 sec Comments Opposite leg straight works better for pt Pelvic realignment exercises Side bilateral Reps/Minutes 5 reps, 3 sec hold all exercises Comments Feet together ball squeeze, knee opp ankle iso, thigh press down iso Manual Therapy Treatment Other Other Manual Treatments Pt hook lying with pillow support under head and legs: B vastus lateralis and hip flexors PT-OP-T Assessment and Plan Start: 04/11/23 13:03 Freq: Status: Active Protocol: Document 05/10/23 11:02 MB (Rec: 05/10/23 11:47 MB [id number]) Physical Therapy Assessment Goals 3 Impairment Right hip weakness Alf Goal (LTG) Pt will present with improved right hip strength equal to the left to improve function and strength. LTG Duration 8 weeks 2 Impairment Lack of HEP Alf Goal (LTG) Pt will perform HEP with I including pelvic realignment, pain management, flexibility, core and LE strengthening and balance exercises with I. LTG Duration 8 weeks 1 Impairment LEF score 49/80 Brand Attendant Goal (LTG) Pt will present with an improved LEF score to at least 60/80 to reflect improved pain and function. LTG Duration 8 weeks Assessment Summary Assessment Pt's sleeping situation is likely a contributer to back pain. He has two adults and two kids in a double bed. Reviewed flexibility and hook lying strengthening exercises today and pt is performing well. Changed bridge to use band for abduction. Physical Therapy Plan Frequency and Duration Frequency of Treatment 1-2x/wk Duration of treatment (weeks) 8 Plan of Care Start Date 04/12/23 Plan of Care End Date 06/12/23 Therapeutic Interventions Therapeutic Interventions Balance Training,Gait Training ,Home Exercise Program,Joint Mobilizations,Manual Therapy, Neuromuscular Re-education, Patient/Caregiver Education, Self-Care/Home Management, Sensory Integration,Soft Tissue Mobilization,Taping, Therapeutic Activities, Therapeutic Exercises Modalities Cold Pack/Ice Massage,Electric Stimulation,Hot Packs Next Visit Focus/Plan Next Note Type Treatment Note Next Visit Plan Please only add one set of exercises at a time to check tolerance and performance: Start gentle core progression in hook lying: pelvic tilt and abd draw in, gentle knee rocking, heel slide, knee fall out and mini march are progression Consider visceral massage, I Love You massage training and diaphragm breathing In future, consider standing exercises including wall squats with band around knees, single leg standing, hip extension with one leg sliding heel back with band or monster walking backwards and side stepping for abductors. Consider sit to stands with band around and above knees
--- NOTE | 2023-06-08 08:19 | PT-OP ANOTE ---
PT reviews chart and pt's right hip MRI and the findings are below. PT calls pt to discuss con't PT and he states that the doctor said no surgery and con't PT. PT ed pt that he only has one more appointment scheduled on 06/14/23 and that will be 10/10 allowed for the year and it would be great for him to schedule more now so that he can con't with PT. PT will perform progress note and update POC on 06/14/23 to carry plan out further. PT speaks with front office about pt calling in today to schedule more appointments and if he does not, if they have time to call to schedule with him, that would be great. Con't PT. PROCEDURE: MR HIP RT WO CON IMPRESSION: Mild degenerative changes of the hip joint. No significant effusion. No acute fracture or dislocation. Suspected mild abductor tendinopathy/partial tear. Questionable signal abnormality the superior labrum may represent artifact, and anatomic recess, or a small labral tear. Consider MR arthrogram if there is further concern for labral pathology. Dictated by: Daniel Wong M.D. on 05/12/2023 at 13:19 Approved by: Daniel Wong M.D. on 05/12/2023 at 13:24
--- NOTE | 2023-06-14 14:14 | PT-OP ANOTE ---
PT received message that pt canceled last appointment and did not make more appointments. PT calls pt on his cell phone to check in and no answer. PT also tries home phone number and no answer.
--- NOTE | 2023-06-21 07:21 | PT.OPDS ---
Current Diagnoses Pain in right hip (05/10/23) Visit Care Team Role Provider Type Chato Cox DO Attending Provider Physician Family Provider Primary Care Provider Referring Provider Specialty: Family Practice Address: [address] [place] [address], [facility] Email: [email or web address] Visit Number Visit Number 6 Discharge Summary PT-OP-B Current Condition Start: 04/11/23 13:03 Freq: Status: Active Protocol: Document 04/12/23 10:24 MB (Rec: 04/12/23 11:03 MB [id number]) Current Condition History of Current Condition Onset Date October 2022 Current Complaints Groin area hip pain when lifting leg up and to the side , donning socks History of Current Condition In 2005, pt fell off a roof and landed on his feet. He broke his right arm and right talus. He was NWB and used crutches for about a year. He did not have any surgeries. 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 In October, he started having rib problems with pain in posterior right side. Pt has bone chips in right ankle. Pt wakes up d/t pain. He tries to sleep flat on his back and ends up on side and belly. Pt did have colon surgery and temporary colostomy in 2019 d/ t fibroids in his colon. Treatment Goals Patient/Caregiver Goals To decrease pain PT-OP-C Subjective Start: 04/11/23 13:03 Freq: Status: Active Protocol: Document 05/10/23 11:02 MB (Rec: 05/10/23 11:47 MB [id number]) OP-PT Subjective Patient Comments Patient Comments Pt states he is feeling a little better. Pt got the insurance approval for right hip MRI and he is walking over to ask about it. PT-OP-G Mobility & Gait Start: 04/11/23 13:03 Freq: Status: Active Protocol: Document 04/12/23 10:24 MB (Rec: 04/12/23 11:03 MB [id number]) OP Gait Assessment Comments Gait Comments Short steps and wide NILAY, decrease right ankle, forefoot and right great toe push off with gait, little arm swing and little pelvic movement with gait PT-OP-J Posture/Palpation/Skin Start: 04/11/23 13:03 Freq: Status: Active Protocol: Document 04/12/23 10:24 MB (Rec: 04/12/23 11:03 MB [id number]) Posture Evaluation Comments Posture Comments Standing posture: mild Dowager 's hump, decreased thoracic kyphosis, left shoulder mildly higher than the right and left iliac crest mildly higher than the right PT-OP-K Range of Motion Start: 04/11/23 13:03 Freq: Status: Active Protocol: Document 04/12/23 10:24 MB (Rec: 04/12/23 11:03 MB [id number]) Hip Goniometric Range of Motion Hip ROM Limitations Comments B PROM hips in supine is limited with IR to neutral on the left and ER is also very tight and moves to 15 deg. Pt has no pain with Scour left hip but it is challenging to move his hip passively and leg does not easily move into EDISON. Right hip PROM: right IR moves better to 10 deg and ER to 25 deg. On the right, positive Scour and negative EDISON Ankle and Foot Goniometric Range of Motion Ankle and Foot ROM Limitations Comments Pt has reduced right ankle DF from talus fracture PT-OP-M Strength Start: 04/11/23 13:03 Freq: Status: Active Protocol: Document 04/12/23 10:24 MB (Rec: 04/12/23 11:03 MB [id number]) Hip Strength Hip Manual Muscle Testing Right Flexion (L2) 4+ Good+ Extension (S1) 4+ Good+ Abduction 4 Good Adduction 4 Good Comments Painful adduction and flexion Left Flexion (L2) 5 Normal Extension (S1) 4+ Good+ Abduction 5 Normal Adduction 5 Normal Knee Strength Knee Manual Muscle Testing Right Flexion (S2) 5 Normal Extension (L3) 5 Normal Left Flexion (S2) 5 Normal Extension (L3) 5 Normal Ankle/Foot Strength Ankle and Foot Manual Muscle Testing Right Comments Deferred d/t old injury and toes tend to flex with DF Left Dorsiflexion (L4) 5 Normal Toe Strength Toe Manual Muscle Testing Right Great Toe Comments Deferred d/t old fracture, toe tends to flex Left Great Toe Extension 5 Normal PT-OP-T Assessment and Plan Start: 04/11/23 13:03 Freq: Status: Active Protocol: Document 06/21/23 07:20 MB (Rec: 06/21/23 07:21 MB [id number]) Physical Therapy Assessment Assessment Summary Assessment Pt has not been seen at PT for several weeks, had some cancellations. PT attempted to call pt to get him back in before POC , and no reply. Will d/c PT.
== END 2023-06-21 10:11 ==
LOC: PHYS 11:00
PROVIDERS: Family Provider Family Medicine; PCP Family Medicine; Referring Provider Family Medicine; Visit Provider Family Medicine
DX: M25.551 Pain in right hip (principal)
CPT/HCPCS: 97110; 97140; 97161; 97535

== ENCOUNTER → 2023-05-11 18:40 | Outpatient (CLI) | payer OTHER, MEDICAID, SELFPAY ==
[2022-09-16 12:01] VITALS: BMI 27.7
--- NOTE | 2023-05-11 18:44 | DI.MRI.S_ITS ---
PROCEDURE: MR HIP RT WO CON INDICATIONS: eval R hip pain - xray done TECHNIQUE: Noncontrast coronal T1 spin echo and STIR through the bony pelvis. Coronal and axial T2 fast spin echo with fat saturation, sagittal T1 spin echo, and oblique axial T2 fast spin echo with fat saturation through the hip. COMPARISON: [facility], CR, XR HIP W PEL IF DONE RT 2V, 02/28/2023, 11:05. FINDINGS: Image quality: Diagnostic, however there is mild artifact Bones: Pelvic ring: Intact Femoral head and neck: No fracture. No osteonecrosis. Ligamentum teres: Intact. Lumbar spine and sacrum: No acute finding. Tendons: Abductors: Mild bilateral abductor tendinopathy and possible right partial-thickness tear. Adductors and rectus abdominis: Intact. No pubic symphyseal edema. IT band: Intact. Iliopsoas: Intact. No bursitis. Hamstrings: Possible tiny partial-thickness tear near the origin Rectus femoris: Intact. Joint: Joint space: No significant effusion. There are mild osteophytes and joint space narrowing. Labrum: Not well evaluated on this study. There is a questionable area of T2 signal in the superior labrum (7/15). Cartilage: No full thickness defect. Soft tissues: Quadratus femoris: No edema or atrophy. Piriformis: Symmetric. Intrapelvic structures: Not well evaluated on this study IMPRESSION: Mild degenerative changes of the hip joint. No significant effusion. No acute fracture or dislocation. Suspected mild abductor tendinopathy/partial tear. Questionable signal abnormality the superior labrum may represent artifact, and anatomic recess, or a small labral tear. Consider MR arthrogram if there is further concern for labral pathology. Dictated by: Daniel Wong M.D. on 05/12/2023 at 13:19 Approved by: Daniel Wong M.D. on 05/12/2023 at 13:24
== END ==
LOC: MRI 18:42
PROVIDERS: Family Provider Family Medicine; PCP Family Medicine; Referring Provider Family Medicine; Visit Provider Family Medicine
DX: S73.191A Other sprain of right hip, initial encounter (principal); X58.XXXA Exposure to other specified factors, initial encounter
CPT/HCPCS: 73721